=== PATIENT | male | born 1940 | race Caucasian/White ===

== ENCOUNTER → 2017-07-04 | Outpatient (CLI) | payer OTHER ==
[~2017-07-04] MED LIST: AMLO-114 PO; ASPI325T39 PO; ATOR-24 PO; CHOL100027 PO; GLC500 PO; INSUINJ12 SC; METO50TA17 PO; MULTTAB58 PO; NVLGI/PEN SC; OMEG12006 PO
[2017-07-04 11:04] LABS: BASO % 0.4 %; BASO ABS # 0.04 K/uL (0-0.2); COMPLETE YES; EOS % 1.8 %; HEMATOCRIT 42.6 % (42-52); IG% 0.3 %; LYMPH % 16.1 %; LYMPH ABS # 1.52 K/uL (1.2-3.4); MEAN CELL VOLUME 99.3 fL (80-100); MEAN CORPUSCULAR HEMOGLOBIN 33.6 pg (25-34); MEAN CORPUSCULAR HGB CONC 33.8 g/dl (32-36); MEAN PLATELET VOLUME 12.3 fL (7.4-10.4); MONO % 11.2 %; NEUT % 70.2 %; PLATELET COUNT 220 K/uL (130-400); RED BLOOD COUNT 4.29 M/uL (4.7-6.1); WHITE BLOOD COUNT 9.45 K/uL (4.8-10.8)
[2017-07-04 11:27] LABS: ALT/SGPT 28 U/L (12-78); BLOOD UREA NITROGEN 22 mg/dl (7-18); BUN/CREATININE RATIO 15.8 (10-20); CALCIUM 9.4 mg/dl (8.5-10.1); CARBON DIOXIDE 29 mmol/L (21-32); CHLORIDE 108 mmol/L (98-107); GLUCOSE 75 mg/dl (70-99); POTASSIUM 4.4 mmol/L (3.5-5.1); SODIUM 142 mmol/L (136-145)
[2017-07-04 11:37] LABS: ESTIMATED AVERAGE GLUCOSE 134 mg/dl; HA1C FLAG Normal (Normal)
[2017-07-04 11:38] LABS: ALB/GLOB RATIO 1.1 (0.9-2); ALKALINE PHOSPHATASE 77 U/L (45-117); AST/SGOT 15 U/L (15-37)
[2017-07-04 13:59] LABS: LYME DISEASE AB IGM NEG (NEG)
[2017-07-04 14:00] LABS: LYME DISEASE AB IGG NEG (NEG)
--- NOTE | 2017-07-12 07:07 | CODING QUERY MEDICAL NECESSITY ---
SUPPORTING DIAGNOSIS NEEDED Dr. Hunter, A supporting diagnosis is required for the test/procedure performed on this patient in order for us to be reimbursed by the patient's insurance. Please provide a supporting diagnosis for the following test/procedure listed below next to the test name along with your signature. *If there is no additional diagnosis for this patient that would support the following test/procedure please document that below next to the test/procedure. Test(s)/Procedure(s) that require a supporting diagnosis: * ([id number]) B12 VITAMIN LEVEL DIAGNOSIS: * [id number] GLYCATED HEMOGLOBIN DIAGNOSIS: DATE OF SERVICE: 07/04/17 Provider Signature: Date: Thank you Felix Mccoy Health Information Management Once completed, please kindly fax back to [phone] For questions please call [phone]
== END | disposition home or self-care (01) ==
LOC: C.LABBC 09:03
PROVIDERS: ATTEND Internal Medicine Geriatric Medicine
DX: F09 Unspecified mental disorder due to known physiological condition (principal)

== ENCOUNTER → 2017-07-06 | Outpatient (CLI) | payer OTHER ==
--- NOTE | 2017-07-06 14:10 | DIAGNOSTIC IMAGING REPORT ---
BRAIN WITHOUT CONTRAST CLINICAL HISTORY: 77 years-old Male presenting with COGNITIVE DISORDER. TECHNIQUE: Multisequence, multiplanar MR imaging of the brain was performed without the use of intravenous contrast. IV contrast: None. COMPARISON: None. FINDINGS: Proportional ventricular and sulcal prominence, likely age-related parenchymal volume loss. Periventricular and subcortical white matter T2/FLAIR hyperintensity, nonspecific but likely indicative of chronic small vessel ischemic change. Old lacunar infarct noted in the left basal ganglia. 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 No mass effect or midline shift. No restricted diffusion to suggest acute ischemia. No hemorrhage. No extra-axial fluid collection. T2 skull base flow voids preserved. Bone marrow signal intensity within the calvarium within normal limits. IMPRESSION: 1. No acute intracranial abnormality. 2. Old lacunar infarct in the left basal ganglia and chronic infarct in the left cerebellar hemisphere. 3. Chronic small vessel ischemic change. Electronically signed by: Emil Hsu M.D. 07/06/2017 2:09 PM Dictated Date/Time: 07/06/2017 2:05 PM
== END | disposition home or self-care (01) ==
LOC: C.MRIBC 12:26
PROVIDERS: ATTEND Internal Medicine Geriatric Medicine
DX: F09 Unspecified mental disorder due to known physiological condition (principal)

== ENCOUNTER → 2017-09-20 | Outpatient (CLI) | payer OTHER ==
[2017-09-20 15:33] LABS: HEMATOCRIT 39.7 % (42-52); MEAN CELL VOLUME 99.3 fL (80-100); MEAN CORPUSCULAR HEMOGLOBIN 34.3 pg (25-34); MEAN CORPUSCULAR HGB CONC 34.5 g/dl (32-36); MEAN PLATELET VOLUME 12.7 fL (7.4-10.4); PLATELET COUNT 236 K/uL (130-400); WHITE BLOOD COUNT 9.68 K/uL (4.8-10.8)
[2017-09-20 15:56] LABS: BLOOD UREA NITROGEN 25 mg/dl (7-18); BUN/CREATININE RATIO 17.2 (10-20); CALCIUM 8.3 mg/dl (8.5-10.1); CARBON DIOXIDE 29 mmol/L (21-32); CHLORIDE 105 mmol/L (98-107); CREATININE 1.47 mg/dl (0.60-1.40); GLUCOSE 73 mg/dl (70-99); POTASSIUM 4.3 mmol/L (3.5-5.1); SODIUM 139 mmol/L (136-145)
[2017-09-20 16:39] LABS: URINE APPEARANCE CLEAR (CLEAR); URINE BILIRUBIN NEG (NEG); URINE COLOR YELLOW; URINE NITRITE NEG (NEG); URINE SPECIFIC GRAVITY 1.015 (1.000-1.030); UROBILINOGEN NEG (NEG)
[2017-09-20 16:45] LABS: MANUAL MICROSCOPIC REQUIRED? NO; REVIEW REQ? NO
[2017-09-20 17:02] LABS: CREATININE, URINE 71.4 mg/dl; URINE PROTIEN/CREAT RATIO 0.5 (0-0.2); URINE TOTAL PROTEIN 36.9 mg/dl (0-11.9)
[2017-09-21 07:27] LABS: ESTIMATED AVERAGE GLUCOSE 128 mg/dl; HA1C FLAG Normal (Normal)
== END | disposition home or self-care (01) ==
LOC: C.LAB1850 14:04
PROVIDERS: ATTEND Internal Medicine Nephrology
DX: I12.9 Hypertensive chronic kidney disease with stage 1 through stage 4 chronic kidney disease, or unspecified chronic kidney disease (principal); R80.9 Proteinuria, unspecified; N18.3 Chronic kidney disease, stage 3 (moderate); D64.9 Anemia, unspecified; E11.9 Type 2 diabetes mellitus without complications; E55.9 Vitamin D deficiency, unspecified

== ENCOUNTER 2017-11-12 09:25 | Inpatient (IN) | payer OTHER ==
[~2017-11-12] VITALS: Ht 170.2 cm; Wt 84.6 kg
--- NOTE | 2017-11-12 09:45 | EMERGENCY ROOM VISIT NOTE ---
History Report prepared by Kevin: Silvano Soriano Under the Supervision of: Dr. Agapito Quick M.D. First contact with patient: 09:33 Chief Complaint: CARDIAC ASSESSMENT Stated Complaint: REFERRED BY History of Present Illness The patient is a 77 year old male who presents to the Emergency Room with complaints of intermittent, moderate, chest pain beginning two weeks ago. The patient states his pain began in his chest and radiated to his left shoulder. He reports he is not currently experiencing pain. The patient notes he has felt better over the past few days. He states he called his PCP, and he has an appointment on . The patient reports he is in the ED today because his thought it would be good to come. He notes since his pain, he is now short of breath on exertion, but he did not have shortness of breath when his pain was present. The patient states nothing helped alleviate his symptoms. 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 The patient notes he has not had trouble with his heart since. He states he takes a full aspirin every day, and he took it this morning. The patient reports a history of DM and his blood sugars have been stable. He notes he also has a history of hypertension. The patient denies current chest pain, sweating, lightheadedness, dizziness, palpitations, pain radiating to arm, pain radiated to neck, having a recent stress test, leg swelling, fevers, chills, other flu-like symptoms, black stools, and abdominal pain. Source of History: patient Onset: two weeks ago Position: chest Symptom Intensity: moderate Timing: intermittent Associated Symptoms: + SOB (worsening with exertion), No fevers, No chills, No chest pain (currently), No abdominal pain Note: Associated symptoms: radiates to left shoulder Denies: sweating, lightheadedness, dizziness, palpitations, pain radiating to arm, pain radiating to neck, leg swelling, black stool Review of Systems As above. All other systems reviewed were negative unless otherwise stated in history. At least 10 were reviewed Past Medical & Surgical Medical Problems: (1) Acute coronary syndrome (2) Chronic Kidney Disease, Stage I (3) Diab Martina Wo Compl, Type Ii Or Unspec Type, Not Uncntrld (4) Diabetes (5) Diverticulosis Colon (W/O Ment Of Hemorrhage) (6) Hypertension Nos (7) Myocardial infarction Surgical Problems: (1) S/P CABG x 4 Old medical records were reviewed. Nurse's notes were reviewed and I agree with. Family History FH: heart disease FHx: cancer Social History Smoking Status: Former Smoker Marital Status: Housing Status: lives with significant other Occupation Status: retired Current/Historical Medications Scheduled Amlodipine (Norvasc), 10 MG PO DAILY Aspirin (Aspirin Ec), 81 MG PO DAILY Atorvastatin (Lipitor), 40 MG PO DAILY Hydrochlorothiazide (Hydrochlorothiazide), 12.5 MG PO DAILY Insulin Detemir (Levemir Flextouch), 15 UNITS SC QAM Insulin Detemir (Levemir Flextouch), 18 UNITS SC QPM Lutein (Hm Lutein), 20 MG PO DAILY Memantine (Namenda), 10 MG PO BID Metformin HCl (Metformin HCl), 1,000 MG PO BID Metoprolol Succ (Toprol Xl) (Toprol-Xl), 25 MG PO DAILY Scheduled PRN Insulin Aspart (Novolog Flexpen), 45 UNITS SC ACHS PRN for SLIDING SCALE Allergies Coded Allergies: TY Inhibitors (Unverified Allergy, Unknown, , 11/12/17) Donepezil (Unverified Allergy, Unknown, , 11/12/17) Physical Exam Vital Signs Date Time Temp Pulse Resp B/P (MAP) Pulse Ox O2 Delivery O2 Flow Rate FiO2 11/12/17 10:26 59 16 141/73 11/12/17 09:47 69 11/12/17 09:26 36.3 68 17 157/66 99 Room Air Physical Exam General: Non-ill appearing older male in no acute distress. HEENT: Normal cephalic atraumatic. Pupils are equal round and reactive to light. Extraocular movements are intact. Oropharynx is pink with moist mucous membranes. No swelling of the mouth lips or tongue. Neck: Supple with a midline trachea. No meningeal signs or stiffness, no JVD or bruits. No Stridor. Chest: Clear to auscultation bilaterally. No wheezes or rhonchi. No increased work of breathing. Scar from previous CABG. Heart: regular rate and rhythm. Abdomen: Soft nontender, nondistended without rebound guarding or rigidity. Extremities: No cyanosis clubbing or edema. No calf tenderness or assymetry Spine/Back. Non tender to palpation. No CVA tenderness Skin: Good turgor without rashes. Neurologic exam: Cranial nerves two through 12 are intact. Motor and sensation are intact and symmetrical throughout. Medical Decision & Procedures ER Provider Diagnostic Interpretation: X-ray results as stated below per interpretation by me and the radiologist: CHEST ONE VIEW PORTABLE CLINICAL HISTORY: CHEST PAIN COMPARISON STUDY: Chest radiograph May 07, 2015. FINDINGS: There are median sternotomy wires and mediastinal surgical clips. No pneumothorax or pleural effusion is noted. Moderate cardiomegaly is noted without evidence for pulmonary edema. There is no consolidation to suggest pneumonia. The appearance of the chest is unchanged. IMPRESSION: No acute cardiopulmonary findings. Electronically signed by: Samuel Kovacs M.D. 11/12/2017 10:25 AM Dictated Date/Time: 11/12/2017 10:25 AM Laboratory Results 11/12/17 09:39 Red Blood Count 4.33, Mean Corpuscular Volume 96.5, Mean Corpuscular Hemoglobin 34.2, Mean Corpuscular Hemoglobin Concent 35.4, Mean Platelet Volume 12.0, Neutrophils (%) (Auto) 75.9, Lymphocytes (%) (Auto) 12.5, Monocytes (%) (Auto) 9.7, Eosinophils (%) (Auto) 1.2, Basophils (%) (Auto) 0.4, Neutrophils # (Auto) 9.12, Lymphocytes # (Auto) 1.50, Monocytes # (Auto) 1.17, Eosinophils # (Auto) 0.15, Basophils # (Auto) 0.05 11/12/17 09:39 Test 11/12/17 09:39 11/12/17 09:51 White Blood Count 12.03 K/uL (4.8-10.8) Red Blood Count 4.33 M/uL (4.7-6.1) Hemoglobin 14.8 g/dL (14.0-18.0) Hematocrit 41.8 % (42-52) Mean Corpuscular Volume 96.5 fL (80-100) Mean Corpuscular Hemoglobin 34.2 pg (25-34) Mean Corpuscular Hemoglobin Concent 35.4 g/dl (32-36) Platelet Count 263 K/uL (130-400) Mean Platelet Volume 12.0 fL (7.4-10.4) Neutrophils (%) (Auto) 75.9 % Lymphocytes (%) (Auto) 12.5 % Monocytes (%) (Auto) 9.7 % Eosinophils (%) (Auto) 1.2 % Basophils (%) (Auto) 0.4 % Neutrophils # (Auto) 9.12 K/uL (1.4-6.5) Lymphocytes # (Auto) 1.50 K/uL (1.2-3.4) Monocytes # (Auto) 1.17 K/uL (0.11-0.59) Eosinophils # (Auto) 0.15 K/uL (0-0.5) Basophils # (Auto) 0.05 K/uL (0-0.2) RDW Standard Deviation 43.2 fL (36.4-46.3) RDW Coefficient of Variation 12.2 % (11.5-14.5) Immature Granulocyte % (Auto) 0.3 % Immature Granulocyte # (Auto) 0.04 K/uL (0.00-0.02) Prothrombin Time 10.6 SECONDS (9.0-12.0) Prothromb Time International Ratio 1.0 (0.9-1.1) Activated Partial Thromboplast Time 26.4 SECONDS (21.0-31.0) Partial Thromboplastin Ratio 1.0 Anion Gap 8.0 mmol/L (3-11) Est Creatinine Clear Calc Drug Dose 44.9 ml/min Estimated GFR () 53.5 Estimated GFR (Non- 46.1 BUN/Creatinine Ratio 16.6 (10-20) Calcium Level 9.2 mg/dl (8.5-10.1) Total Bilirubin 0.6 mg/dl (0.2-1) Direct Bilirubin 0.1 mg/dl (0-0.2) Aspartate Amino Transf (AST/SGOT) 14 U/L (15-37) Alanine Aminotransferase (ALT/SGPT) 24 U/L (12-78) Alkaline Phosphatase 101 U/L (45-117) Total Creatine Kinase 137 U/L (39-308) Creatine Kinase MB 3.3 ng/ml (0.5-3.6) Creatine Kinase MB Ratio (0-3.0) Troponin I 1.390 ng/ml (0-0.045) Pro-B-Type Natriuretic Peptide 2900 pg/ml (0-1800) Total Protein 8.2 gm/dl (6.4-8.2) Albumin 3.7 gm/dl (3.4-5.0) Lipase 234 U/L (73-393) Thyroid Stimulating Hormone (TSH) 3.170 uIu/ml (0.300-4.500) Bedside Troponin I 1.840 ng/ml (0-0.045) Laboratory studies as stated above per my review. ECG Indication: chest pain Rate (beats per minute): 68 Rhythm: normal sinus Findings: nonspecific-ST abn, Q waves (in lead V6), other (Non-specific T-wave abnormality, no ST elevation, Poor baseline for interpretation) Comparison ECG Date: 05/07/15 Change: Non-specific ST and T-wave abnormalities and Q waves in lead V6 are new. Patient's electrocardiogram was interpreted by me. ED Course 0934: Past medical records reviewed. The patient was evaluated in room A10, and a complete history and physical examination were performed. 1014: Upon reevaluation, the patient is resting comfortably. I discussed the results and treatment plan with the patient. He verbalized agreement of the treatment plan. The patient will be evaluated for further management. 1017: I discussed the patient case with Dr. Brooks, [facility] Hospitalist. The patient will be evaluated for further management and care. Medical Decision Differentials include, but are not limited to; ACS, MT, GERD, arrhythmia, infection, CHF, electrolyte or metabolic abnormality. This patient comes in as described above. He does have a cardiac history with a quadruple bypass 14 years ago he had chest pain about 2 weeks ago. He is asymptomatic at present. He did take a full strength aspirin today. IV access established extensive workup was obtained including EKG, chest x-ray, multiple blood testing including cardiac biomarkers. He was reassessed frequently. He is asymptomatic at present. He is a somewhat poor historian about the timing of the chest pain. I'm concerned that he does have EKG changes with T-wave inversions but nothing to suggest an acute STEMI. His troponin is significantly elevated and I suspect he had a MT within the last week or so. He still does have some symptoms with feeling tired with exertion only. He does have some mild renal insufficiency. He does not appear to be in significant congestive heart failure. I do think he needs to be admitted for further cardiac treatment and evaluation. I did consult Dr. Brooks to see him in the emergency department. Medication Reconcilliation Current Medication List: was personally reviewed by me Blood Pressure Screening Patient's blood pressure: Elevated blood pressure Monitored by hospitalist. Consults Time Called: 1011 Consulting Physician: Dr. Brooks, [facility] Hospitalist Returned Call: [phone] I discussed the patient case with Dr. Brooks, [facility] Hospitalist. The patient will be evaluated for further management and care. Impression Primary Impression: Acute coronary syndrome Additional Impression: Elevated troponin I level Scribe Attestation The scribe's documentation has been prepared under my direction and personally reviewed by me in its entirety. I confirm that the note above accurately reflects all work, treatment, procedures, and medical decision making performed by me. Departure Information Dispostion Being Evaluated By Hospitalist Referrals Rambo Hunter M.D. (PCP) Patient Instructions My [facility] Problem Qualifiers
[2017-11-12 09:53] LABS: BASO % 0.4 %; BASO ABS # 0.05 K/uL (0-0.2); EOS % 1.2 %; EOS ABS # 0.15 K/uL (0-0.5); HEMATOCRIT 41.8 % (42-52); HEMOGLOBIN 14.8 g/dL (14.0-18.0); IG# 0.04 K/uL (0.00-0.02); LYMPH % 12.5 %; MEAN CELL VOLUME 96.5 fL (80-100); MEAN CORPUSCULAR HEMOGLOBIN 34.2 pg (25-34); MEAN CORPUSCULAR HGB CONC 35.4 g/dl (32-36); MONO % 9.7 %; MONO ABS # 1.17 K/uL (0.11-0.59); NEUT % 75.9 %; NEUT ABS # 9.12 K/uL (1.4-6.5); PLATELET COUNT 263 K/uL (130-400); RED CELL DISTRIBUTION WIDTH CV 12.2 % (11.5-14.5); RED CELL DISTRIBUTION WIDTH SD 43.2 fL (36.4-46.3); WHITE BLOOD COUNT 12.03 K/uL (4.8-10.8)
[2017-11-12] MEDS ORDERED: NMN10 PO (09:58)
[2017-11-12] MEDS ORDERED: ASPI81TA28 PO (09:58)
[2017-11-12] MEDS ORDERED: INSU3INJ3 SC (09:58)
[2017-11-12] MEDS ORDERED: LUTE1CAP4 PO (09:58)
[2017-11-12] MEDS ORDERED: LVMIPEN SC (09:58)
[2017-11-12] MEDS ORDERED: HYDR12.55 PO (09:58)
[2017-11-12] MEDS ORDERED: METO25TA3 PO (09:58)
[2017-11-12 10:08] LABS: ALBUMIN 3.7 gm/dl (3.4-5.0); CALCIUM 9.2 mg/dl (8.5-10.1); CREATININE 1.45 mg/dl (0.60-1.40); POTASSIUM 3.8 mmol/L (3.5-5.1)
[2017-11-12 10:11] LABS: PTT PATIENT 26.4 SECONDS (21.0-31.0)
[2017-11-12 10:19] LABS: CKMB 3.3 ng/ml (0.5-3.6); TOTAL PROTEIN 8.2 gm/dl (6.4-8.2)
--- NOTE | 2017-11-12 10:26 | DIAGNOSTIC IMAGING REPORT ---
CHEST ONE VIEW PORTABLE CLINICAL HISTORY: CHEST PAIN COMPARISON STUDY: Chest radiograph May 07, 2015. FINDINGS: There are median sternotomy wires and mediastinal surgical clips. No pneumothorax or pleural effusion is noted. Moderate cardiomegaly is noted without evidence for pulmonary edema. There is no consolidation to suggest pneumonia. The appearance of the chest is unchanged. IMPRESSION: No acute cardiopulmonary findings. Electronically signed by: Samuel Kovacs M.D. 11/12/2017 10:25 AM Dictated Date/Time: 11/12/2017 10:25 AM
[2017-11-12] MEDS ORDERED: MoRPHine SULFATE 4 MG/ML 1 ML CARP\\VIAL IV PRN (10:30)
[2017-11-12] MEDS ORDERED: NITROGLYCERIN 0.4 MG SL PER TAB CHARGE SL PRN (10:30)
[2017-11-12] MEDS ORDERED: MoRPHine SULFATE 2 MG/ML CARP IV PRN (10:30)
[2017-11-12] MEDS ORDERED: ACETAMINOPHEN 325 MG TAB PO PRN (10:30)
[2017-11-12] MEDS ORDERED: ONDANSETRON INJ 2 MG/ML 2 ML VIAL IV PRN (10:30)
[2017-11-12] MEDS ORDERED: MAGNESIUM HYDROXIDE SUSP 30 ML UDC PO PRN (10:30)
[2017-11-12] MEDS ORDERED: ALUMINUM/MAGNESIUM/SIMETH (MAALOX MAX) 30 ML UDC PO PRN (10:30)
--- NOTE | 2017-11-12 10:59 | History and Physical ---
History & Physical Date & Time of Service: Nov 12, 2017 at 10:49 Chief Complaint: Referred By Primary Care Physician: Rambo Hunter M.D. History of Present Illness Source: patient, family, clinic records This patient presents as a referral from clinic with a history of some chest discomfort and exertional dyspnea and fatigue with an abnormal EKG. Patient has a history of dementia in his chart and his story varies from clinic to the ER records regarding the exact timeframe of the symptoms likely over the last 2 weeks she's been having some chest discomfort it can be both at rest and with exertion. He notices that after he is done walking his dog, which she does every day, but he feels more tired and fatigued than usual. She does have a significant past history of a CABG and also is an insulin requiring diabetic. 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 (3) Diverticulosis Colon (W/O Ment Of Hemorrhage) Status: Chronic (4) Hypertension Nos Status: Chronic CAbg 2003 dyslipidemia dementia h/o cholecystectomy cerebrovascular disease SCCA of skin Family History Patient is a family history of both coronary disease and diabetes Social History Smoking Status: Former Smoker Smokeless Tobacco Use: No Alcohol Use: socially Drug Use: none Marital Status: Housing status: lives with family Occupational Status: retired Multi-Drug Resistant Organisms History of MDRO: No Allergies Coded Allergies: TY Inhibitors (Unverified Allergy, Unknown, , 11/12/17) Donepezil (Unverified Allergy, Unknown, , 11/12/17) Home Medications Scheduled Amlodipine (Norvasc), 10 MG PO DAILY Aspirin (Aspirin Ec), 81 MG PO DAILY Atorvastatin (Lipitor), 40 MG PO DAILY Hydrochlorothiazide (Hydrochlorothiazide), 12.5 MG PO DAILY Insulin Detemir (Levemir Flextouch), 15 UNITS SC QAM Insulin Detemir (Levemir Flextouch), 18 UNITS SC QPM Lutein (Hm Lutein), 20 MG PO DAILY Memantine (Namenda), 10 MG PO BID Metformin HCl (Metformin HCl), 1,000 MG PO BID Metoprolol Succ (Toprol Xl) (Toprol-Xl), 25 MG PO DAILY Scheduled PRN Insulin Aspart (Novolog Flexpen), 45 UNITS SC ACHS PRN for SLIDING SCALE Review of Systems ROS: well nourished well developed No double vision blurry vision No problems with speech or swallowing No palpitations, he feels some chest discomfort both at rest and with exertion is difficult to tell long it lasts No Wheezing or breathing issues, but he says he feels more tired after walking No abdominal pain nausea vomiting diarrhea changes in appetite or weight No burning urine urine frequency or changes in color No focal joint pain or muscle pain No skin rashes or oral lesions he does have evidence of sun damage No unusual bruising or bleeding No focused back pain or numbness or loss of strength He has baseline changes in memory but does not seem to have confusion in conversational questioning Physical Exam Vital Signs Date Time Temp Pulse Resp B/P (MAP) Pulse Ox O2 Delivery O2 Flow Rate FiO2 11/12/17 10:26 59 16 141/73 11/12/17 09:47 69 11/12/17 09:26 36.3 68 17 157/66 99 Room Air General Appearance: WD/WN, no apparent distress Head: normocephalic, atraumatic Eyes: normal inspection, PERRL, EOMI, sclerae normal ENT: hearing grossly normal, pharynx normal Neck: supple, no JVD, no carotid bruits Respiratory/Chest: chest non-tender, lungs clear, normal breath sounds Cardiovascular: regular rate, rhythm, no edema Abdomen/GI: normal bowel sounds, non tender, soft Back: no CVA tenderness, no muscle spasm Extremities/Musculoskelatal: no pedal edema, normal range of motion Neurologic/Psych: alert, normal reflexes Skin: normal color, + pertinent finding Diagnostics Laboratory Results Results Past 24 Hours Test 11/12/17 09:39 11/12/17 09:51 11/12/17 10:23 Range/Units White Blood Count 12.03 4.8-10.8 K/uL Red Blood Count 4.33 4.7-6.1 M/uL Hemoglobin 14.8 14.0-18.0 g/dL Hematocrit 41.8 42-52 % Mean Corpuscular Volume 96.5 80-100 fL Mean Corpuscular Hemoglobin 34.2 25-34 pg Mean Corpuscular Hemoglobin Concent 35.4 32-36 g/dl Platelet Count 263 130-400 K/uL Mean Platelet Volume 12.0 7.4-10.4 fL Neutrophils (%) (Auto) 75.9 % Lymphocytes (%) (Auto) 12.5 % Monocytes (%) (Auto) 9.7 % Eosinophils (%) (Auto) 1.2 % Basophils (%) (Auto) 0.4 % Neutrophils # (Auto) 9.12 1.4-6.5 K/uL Lymphocytes # (Auto) 1.50 1.2-3.4 K/uL Monocytes # (Auto) 1.17 0.11-0.59 K/uL Eosinophils # (Auto) 0.15 0-0.5 K/uL Basophils # (Auto) 0.05 0-0.2 K/uL RDW Standard Deviation 43.2 36.4-46.3 fL RDW Coefficient of Variation 12.2 11.5-14.5 % Immature Granulocyte % (Auto) 0.3 % Immature Granulocyte # (Auto) 0.04 0.00-0.02 K/uL Prothrombin Time 10.6 9.0-12.0 SECONDS Prothromb Time International Ratio 1.0 0.9-1.1 Activated Partial Thromboplast Time 26.4 21.0-31.0 SECONDS Partial Thromboplastin Ratio 1.0 Sodium Level 139 136-145 mmol/L Potassium Level 3.8 3.5-5.1 mmol/L Chloride Level 104 98-107 mmol/L Carbon Dioxide Level 27 21-32 mmol/L Anion Gap 8.0 3-11 mmol/L Blood Urea Nitrogen 24 7-18 mg/dl Creatinine 1.45 0.60-1.40 mg/dl Est Creatinine Clear Calc Drug Dose 44.9 ml/min Estimated GFR () 53.5 Estimated GFR (Non- 46.1 BUN/Creatinine Ratio 16.6 10-20 Random Glucose 116 70-99 mg/dl Calcium Level 9.2 8.5-10.1 mg/dl Total Bilirubin 0.6 0.2-1 mg/dl Direct Bilirubin 0.1 0-0.2 mg/dl Aspartate Amino Transf (AST/SGOT) 14 15-37 U/L Alanine Aminotransferase (ALT/SGPT) 24 12-78 U/L Alkaline Phosphatase 101 45-117 U/L Total Creatine Kinase 137 39-308 U/L Creatine Kinase MB 3.3 0.5-3.6 ng/ml Creatine Kinase MB Ratio 0-3.0 Pro-B-Type Natriuretic Peptide 2900 0-1800 pg/ml Total Protein 8.2 6.4-8.2 gm/dl Albumin 3.7 3.4-5.0 gm/dl Lipase 234 73-393 U/L Thyroid Stimulating Hormone (TSH) 3.170 0.300-4.500 uIu/ml Bedside Troponin I 1.840 0-0.045 ng/ml Diagnostic Radiology poc troponin is 1.8 serum level is pending CXR normal other (ecg xshows lateral changes) Impression Assessment and Plan 77 M with history of CABG presents with new onset chest pain over last few weeks , abnormal ECG and elevated troponin, has history of DM Acute coronary syndrome, trend enzymes, increase asprin and lipitor, stop norvasc and increase metoprolol watching for toxic effects of worsening bradycardia, pending echo and cardiology evaluation Diabetes, will continue levimir, and sliding scale(usually takes, 05/16/11 units with meals plus scale at home) with diabetic diet, holding metformin CKD 3 renal dose adjustments to heparin and follow dementia, seems to be mild, cannot firmly recall events of symptoms, no meds at this time but may discuss with DR Hunter in the future DVT prevention is Heparin VTE Prophylaxis VTE Risk Assessment Done? Y/N: Yes Risk Level: Moderate
[2017-11-12 11:01] VITALS: O2SAT 97
[2017-11-12 11:20] VITALS: BP 157/68; PULSE 62; TEMP 36.8; Ht 170.2 cm; Wt 84.6 kg
[2017-11-12] MEDS: INSULIN ASPART 100 UNITS/ML 3 ML PEN SC SCH ×3 (12:20→21:00)
[2017-11-12] MEDS ORDERED: PERFLUTREN LIPID MICROSPHERE (DEFINITY) IV ONE (13:51)
[2017-11-12] MEDS ORDERED: IV FLUIDS COMPLETED PRN (15:00)
--- NOTE | 2017-11-12 15:36 | ECHOCARDIOGRAM REPORT ---
*NOTICE TO RECEIVING DEMOCRAT AGENCY This information is strictly Confidential and protected under [place] law. [place] law prohibits you from making any further disclosure of this information unless further disclosure is expressly permitted by the written consent of the person to whom it pertains or is authorized by law. A general authorization for the release of medical or other information is not sufficient for this purpose. Hospital accepts no responsibility if the information is made available to any other person, INCLUDING THE PATIENT. Interpretation Summary * Name: SULEIMAN RUST Study Date: 11/12/2017 01:23 PM BP: 148/65 mmHg * Patient Location: [facility] HR: 60 * : 1940 (M/d/yyyy) Gender: Male Height: 67 in * Age: 77 yrs Ethnicity: CA Weight: 191 lb * Ordering Physician: Stefano Brooks * Performed By: Yelena Moreno RDCS * * Reason For Study: Chest pain * BSA: 2.0 m2 * -- Conclusions -- * Left ventricular systolic function is normal. * There is mild mitral regurgitation. * Right ventricular systolic pressure is elevated at 40-50mmHg. Procedure Details * A complete two-dimensional transthoracic echocardiogram was performed (2D, M-mode, Doppler and color flow Doppler). * A contrast injection of Definity was performed to improve assessment of LV function. * Contrast was injected into an intravenous site in the left arm. * One vial of Definity ultrasound contrast was diluted in normal saline to a total volume of 10 ml. A total of '2' ml of solution was administered during imaging. * Lot # [id number] of Definity utilized for procedure. * Expiration date 1 NOV 28. * The attending nurse who injected the contrast agent was Chelsie Shelby RN. Left Ventricle * The left ventricle is normal in size. * There is normal left ventricular wall thickness. * Ejection Fraction = 55-60%. * Left ventricular systolic function is normal. * There are regional wall motion abnormalities as specified. * There is distal anterior hypokinesis Right Ventricle * The right ventricle is normal in size and function. * The right ventricular systolic function is normal as assessed by tricuspid annular plane systolic excursion (TAPSE) (normal >1.5 cm). Atria * The left atrial size is normal. * Right atrial size is normal. Mitral Valve * The mitral valve is grossly normal. * There is mild mitral regurgitation. Tricuspid Valve * The tricuspid valve is not well visualized, but is grossly normal. * There is mild tricuspid regurgitation. * Right ventricular systolic pressure is elevated at 40-50mmHg. Aortic Valve * Aortic valve sclerosis mild, without significant aortic valvular stenosis. * No hemodynamically significant valvular aortic stenosis. * There is no significant aortic regurgitation. Pericardium/Pleural * There is no pericardial effusion. Great Vessels * Normal inferior vena cava diameter and respiratory variation suggests normal central venous pressure. MMode 2D Measurements and Calculations IVSd 1.2 cm LVIDd 5.2 cm LVIDs 3.5 cm LVPWd 1.1 cm IVS/LVPW 1.0 FS 32.4 % EDV(Teich) 129.1 ml ESV(Teich) 51.1 ml EF(Teich) 60.4 % EDV(cubed) 140.0 ml ESV(cubed) 43.2 ml EF(cubed) 69.2 % LV mass(C)d 235.0 grams LV mass(C)dI 118.5 grams/m\S\2 SV(Teich) 77.9 ml SI(Teich) 39.3 ml/m\S\2 SV(cubed) 96.8 ml SI(cubed) 48.8 ml/m\S\2 ACS 1.6 cm asc Aorta Diam 2.4 cm LVOT diam 2.7 cm LVOT area 5.8 cm\S\2 LVAd ap4 37.3 cm\S\2 LVLd ap4 8.4 cm EDV(MOD-sp4) 137.8 ml EDV(sp4-el) 140.1 ml LVAs ap4 19.2 cm\S\2 LVLs ap4 6.3 cm ESV(MOD-sp4) 48.1 ml ESV(sp4-el) 49.5 ml EF(MOD-sp4) 65.1 % EF(sp4-el) 64.7 % LVAd ap2 32.8 cm\S\2 LVLd ap2 7.4 cm EDV(MOD-sp2) 117.7 ml EDV(sp2-el) 123.9 ml LVAs ap2 20.1 cm\S\2 LVLs ap2 6.9 cm ESV(MOD-sp2) 48.1 ml ESV(sp2-el) 50.0 ml EF(MOD-sp2) 59.2 % EF(sp2-el) 59.6 % LVLd %diff -14.83 % EDV(MOD-bp) 130.6 ml LVLs %diff 7.9 % ESV(MOD-bp) 48.2 ml EF(MOD-bp) 63.1 % SV(MOD-sp4) 89.7 ml SI(MOD-sp4) 45.2 ml/m\S\2 SV(MOD-sp2) 69.7 ml SI(MOD-sp2) 35.1 ml/m\S\2 SV(MOD-bp) 82.4 ml SI(MOD-bp) 41.6 ml/m\S\2 SV(sp4-el) 90.6 ml SI(sp4-el) 45.7 ml/m\S\2 SV(sp2-el) 73.9 ml SI(sp2-el) 37.3 ml/m\S\2 Doppler Measurements and Calculations MV E max dariusz 105.0 cm/sec MV A max dariusz 34.8 cm/sec MV E/A 3.0 MV dec time 0.19 sec Ao V2 max 171.8 cm/sec Ao max PG 11.8 mmHg Ao max PG (full) 8.2 mmHg BLAYNE(V,A) 3.2 cm\S\2 BLAYNE(V,D) 3.2 cm\S\2 LV V1 max PG 3.6 mmHg LV V1 max 94.6 cm/sec MR max dariusz 463.8 cm/sec MR max PG 86.1 mmHg MR mean dariusz 371.1 cm/sec MR mean PG 62.9 mmHg MR VTI 168.4 cm PA V2 max 98.4 cm/sec PA max PG 3.9 mmHg PA acc slope 444.3 cm/sec\S\2 PA acc time 0.13 sec PI end-d dariusz 118.8 cm/sec TR max dariusz 329.6 cm/sec PA pr(Accel) 22.8 mmHg
[2017-11-12 16:35] VITALS: BP 151/73; PULSE 54; TEMP 36.6; O2SAT 97
[2017-11-12 19:43] VITALS: BP 157/95; PULSE 54; TEMP 36.9; O2SAT 99
[2017-11-12] MEDS: METOPROLOL SUCC 25MG EXT REL TAB PO SCH (21:44)
[2017-11-12] MEDS: MEMANTINE 10 MG TAB PO SCH (21:45)
[2017-11-12] MEDS: HEPARIN SOD 5000 UNIT/0.5 ML CARP SQ SCH (21:46)
[2017-11-12 23:38] VITALS: BP_SYST 135; BP_SYST 145; BP_DIAS 66; BP_DIAS 72; PULSE 49; PULSE 53; TEMP 36.6; TEMP 36.7; O2SAT 97; O2SAT 98
[2017-11-13 03:30] VITALS: BP 123/70; PULSE 54; TEMP 36.9; O2SAT 98
[2017-11-13 07:54] VITALS: BP 175/84; PULSE 60; TEMP 36.7; O2SAT 94
[2017-11-13] MEDS: METOPROLOL SUCC 25MG EXT REL TAB PO SCH ×2 (08:23→21:15)
[2017-11-13] MEDS: MEMANTINE 10 MG TAB PO SCH ×2 (08:23→21:15)
[2017-11-13] MEDS: INSULIN ASPART 100 UNITS/ML 3 ML PEN SC SCH ×4 (08:25→21:17)
[2017-11-13] MEDS: HEPARIN SOD 5000 UNIT/0.5 ML CARP SQ SCH ×2 (08:25→21:16)
[2017-11-13 08:57] LABS: HEMATOCRIT 40.1 % (42-52); HEMOGLOBIN 14.5 g/dL (14.0-18.0); MEAN CELL VOLUME 95.9 fL (80-100); MEAN CORPUSCULAR HEMOGLOBIN 34.7 pg (25-34); MEAN CORPUSCULAR HGB CONC 36.2 g/dl (32-36); MEAN PLATELET VOLUME 12.1 fL (7.4-10.4); PLATELET COUNT 250 K/uL (130-400); RED CELL DISTRIBUTION WIDTH CV 12.1 % (11.5-14.5); WHITE BLOOD COUNT 7.72 K/uL (4.8-10.8)
[2017-11-13] MEDS ORDERED: ASPIRIN 325 MG ECTAB PO SCH (09:00)
[2017-11-13] MEDS ORDERED: ATORVASTATIN 40 MG TAB PO SCH (09:00)
[2017-11-13 09:30] LABS: CALCIUM 8.8 mg/dl (8.5-10.1); CREATININE 1.57 mg/dl (0.60-1.40); POTASSIUM 4.4 mmol/L (3.5-5.1)
--- NOTE | 2017-11-13 11:42 | Cardiology Consultation ---
Cardiology Consultation Date of Consultation: Nov 13, 2017. Requesting Physician: Dunia Reason for Consultation: Chest pain Pt evaluation today including: conversation w/ patient, physical exam, chart review, lab review, review of studies, review of inpatient medication list, conversation w/ attending History of Present Illness Patient is a 77-year-old gentleman with a history of coronary artery disease having previously undergone 4 vessel coronary bypass in 2003. He reports an episode of chest discomfort that apparently began nearly 2 weeks ago. He described this initially as left shoulder discomfort that eventually generalized to include the precordium. He had symptoms of this nature for 2 days before resolution. The symptoms themselves were described as a mild discomfort that was not overtly pleuritic in nature. He is fairly constant for that period of time. For the past several days the patient has felt well. He does not describe recurrence of the symptoms. He states that since that episode he has noticed some slight worsening in his exercise tolerance manifest primarily by an inability to walk long distances. He is accustomed to walking his dogs on a regular basis and now notes that with a slight hill or extended distance he becomes fatigued. He does not describe exertional chest pain. During no point in the past few weeks as he had significant shortness of breath. He feels that the symptoms did resemble chest pain he had prior to his bypass in 2003, but does have some difficulty remembering that event. He has not describe dizziness or lightheadedness. He has not been aware of any palpitations. He has not had any syncope. He denies any swelling of lower extremities. He claims to sleep well and is not describe orthopnea or paroxysmal nocturnal dyspnea. Past Medical/Surgical History Coronary artery disease status post coronary artery bypass grafting 2003, [facility] [place] Bradycardia Carotid artery disease Dementia Chronic renal insufficiency Diabetes mellitus Hyperlipidemia Hypertension Past surgical history Coronary artery bypass grafting Tonsillectomy Prostate biopsy Carotid endarterectomy Family History FH: heart disease FHx: cancer Noncontributory given his advanced age Social History Smoking Status: Unknown if Ever Smoked History of Alcohol Use: No Retired high school history teacher Review of Systems Per HPI. No recent constitutional symptoms such as fevers or chills. All Other Systems: Reviewed and Negative Allergies Coded Allergies: WESLY Inhibitors (Unverified Allergy, Unknown, , 11/12/17) Donepezil (Unverified Allergy, Unknown, , 11/12/17) Medications Current Inpatient Medications Medications (Trade) Dose Ordered Sig/Elise Route Start Time Stop Time Status Last Admin Dose Admin Heparin Sodium (Porcine) (Heparin Sq 5000 Unit/0.5ml) 5,000 unit Q12 SQ 11/12/17 21:00 12/12/17 20:59 11/13/17 08:25 5,000 UNIT Acetaminophen (Tylenol Tab) 650 mg Q4H PRN PO 11/12/17 10:30 12/12/17 10:29 Al Hydrox/Mg Hydrox/Simethicone (Maalox Max Susp) 15 ml Q4H PRN PO 11/12/17 10:30 12/12/17 10:29 Magnesium Hydroxide (Milk Of Magnesia Susp) 30 ml Q12H PRN PO 11/12/17 10:30 12/12/17 10:29 Ondansetron HCl (Zofran Inj) 4 mg Q6H PRN IV 11/12/17 10:30 12/12/17 10:29 Nitroglycerin (Nitrostat Tab) 0.4 mg UD PRN SL 11/12/17 10:30 12/12/17 10:29 Aspirin (Ecotrin Tab) 325 mg QAM PO 11/13/17 09:00 12/13/17 08:59 11/13/17 08:24 325 MG Atorvastatin Calcium (Lipitor Tab) 80 mg DAILY PO 11/13/17 09:00 12/13/17 08:59 11/13/17 08:23 80 MG Memantine (Namenda Tab) 10 mg BID PO 11/12/17 21:00 12/12/17 20:59 11/13/17 08:23 10 MG Metoprolol Succinate (Toprol Xl Tab) 25 mg BID PO 11/12/17 21:00 12/12/17 20:59 11/13/17 08:23 25 MG Insulin Aspart (novoLOG ASPART) SLIDING SCALE PARAMETER ACHS SC 11/12/17 11:00 12/12/17 10:59 11/13/17 08:25 8 UNITS Morphine Sulfate (MoRPHine SULFATE INJ) 4 mg Q4H PRN IV 11/12/17 10:30 11/26/17 10:29 Morphine Sulfate (MoRPHine SULFATE INJ) 2 mg Q4H PRN IV 11/12/17 10:30 11/26/17 10:29 Miscellaneous (Iv Fluids Completed) 1 ea PRN PRN N/A 11/12/17 15:00 11/12/18 14:59 Physical Exam Vital Signs Past 12 Hours Date Time Temp Pulse Resp B/P (MAP) Pulse Ox O2 Delivery O2 Flow Rate FiO2 11/13/17 08:00 Room Air 11/13/17 07:54 36.7 60 20 175/84 (114) 94 Room Air 11/13/17 04:00 Room Air 11/13/17 03:30 36.9 54 18 123/70 (87) 98 Room Air 11/13/17 00:02 Room Air 11/12/17 23:38 36.7 53 18 135/66 (89) 98 Room Air The patient is alert and oriented. Mood and affect appeared normal. He answered all questions appropriately. His mentation seem to be appropriate HEENT: Pupils are equal and reactive to light and accommodation. Extraocular movements are intact. The sclerae are anicteric. Neuro: Cranial nerves intact Neck: Patient's neck is supple. He has palpable carotid pulses bilaterally without bruits on auscultation. There is no evidence of jugular venous distention. The thyroid is not enlarged. Lungs: Clear to auscultation bilaterally. He has good air movement without use of accessory muscles. No rales wheezes or rhonchi. Cardiac: Heart demonstrates a regular rate and rhythm with occasional ectopy. Normal S1 and S2. No murmurs on examination. Pulses: The patient has palpable radial pulses bilaterally that are equal in intensity Extremities: There was no evidence of hypoperfusion. There is no cyanosis or clubbing. There is no edema. Skin: I did not appreciate any rashes on examination today. Data Laboratory Results: Last 24 Hours Test 11/12/17 16:07 11/12/17 16:16 11/12/17 20:54 11/13/17 00:31 Bedside Glucose 135 mg/dl 132 mg/dl Troponin I 1.150 ng/ml 0.979 ng/ml Test 11/13/17 06:49 11/13/17 08:32 Bedside Glucose 198 mg/dl White Blood Count 7.72 K/uL Red Blood Count 4.18 M/uL Hemoglobin 14.5 g/dL Hematocrit 40.1 % Mean Corpuscular Volume 95.9 fL Mean Corpuscular Hemoglobin 34.7 pg Mean Corpuscular Hemoglobin Concent 36.2 g/dl RDW Standard Deviation 42.0 fL RDW Coefficient of Variation 12.1 % Platelet Count 250 K/uL Mean Platelet Volume 12.1 fL Sodium Level 135 mmol/L Potassium Level 4.4 mmol/L Chloride Level 102 mmol/L Carbon Dioxide Level 25 mmol/L Anion Gap 8.0 mmol/L Blood Urea Nitrogen 25 mg/dl Creatinine 1.57 mg/dl Est Creatinine Clear Calc Drug Dose 41.5 ml/min Estimated GFR () 48.6 Estimated GFR (Non- 41.9 BUN/Creatinine Ratio 15.8 Random Glucose 318 mg/dl Calcium Level 8.8 mg/dl Magnesium Level 1.7 mg/dl Troponin I 0.864 ng/ml Beta-Hydroxybutyric Acid 1.31 mg/dL Imaging: Chest x-ray did not demonstrate any acute abnormality EKG: Sinus bradycardia with possible old posterolateral infarct. Diffuse T- wave inversions and occasional PVCs Telemetry reviewed: Sinus rhythm with PVCs Echocardiogram was obtained on 11/12/2017: This demonstrated overall preserved LV systolic function with evidence of anterior hypokinesis. Assessment & Plan 1. Acute coronary syndrome: Patient has elevated cardiac biomarkers consistent with a recent infarct. The trajectory of the biomarkers is down trending and the overall elevation is quite low. Based on his history this could represent the tail end of an infarcted occurred within the past 2 weeks. By his report this may have occurred approximately 10 days ago. There has been some debate as to the reliability of his history. Asked him on several different occasions what time frame the symptoms occurred any seem to be consistent today. It is very likely that the exertional symptoms he has describe since the event are related to the recent infarct. His overall LV function appears to be preserved on echocardiogram but there does appear to be some hypokinesis in the anterior wall. While my initial enthusiasm centered around coronary angiography, I think the relatively remote nature of this event and the absence of severe symptoms gives us an opportunity to manage this conservatively. I think a perfusion study to exclude large areas of ischemia or at risk myocardium would be reasonable in order to better risk stratify him and determine if coronary angiography would be beneficial. I think he can be maintained on his outpatient dose of beta-isabel, atorvastatin and aspirin. I think adding Plavix to his medical regimen will have some benefit. The patient was debating whether he wanted to stay in the hospital. I recommended staying for a Lexiscan perfusion study tomorrow. 2. Coronary artery disease: Patient has had a quite remote bypass surgery. The exact anatomy is not available but we may be able to obtain this tomorrow from [place]. He has been maintained on aspirin, atorvastatin and beta blockade. 3. Ischemic cardiomyopathy: Patient has had some waxing and waning LV dysfunction over the years. His most recent echocardiogram looks good overall and I would estimate his overall ejection fraction in the low-normal range. He has been maintained on a beta-isabel but no Wesly inhibitor based on his degree of renal dysfunction.
[2017-11-13] MEDS ORDERED: CLOPIDOGREL BISULFATE 300 MG TAB PO STA (12:16)
--- NOTE | 2017-11-13 12:42 | Hospitalist Progress Note ---
Hospitalist Progress Note Date of Service Nov 13, 2017. Subjective Pt evaluation today including: conversation w/ patient, physical exam, chart review, lab review, review of studies, conversation w/ financial planning consultant (spoke with Dr. Dorsey), review of inpatient medication list Pain: None PO Intake: Tolerating PO diet Voiding: no voiding problems Patient reports feeling well. He denies any chest pain or shortness of breath. It is unclear how reliable he is as a historian; per nursing he gets easily confused and does have dementia and Namenda in his chart. He states that he had developed chest pain for about 2 days, but this occurred about 1.5 weeks ago and has not come back since then. After this episode, however, he has noticed becoming more easily fatigued/having less endurance. He states he regularly takes his dog for a mile long walk, and in the last 1.5 weeks, he has been getting more tired towards the end of the walk and having to take it easy. He otherwise denies complaints. The patient denies fevers, chills, sweats, chest pain, palpitations, claudication, cough, wheezing, shortness of breath, nausea, vomiting, abdominal pain, dysuria, hematuria, urinary retention, paralysis, weakness, numbness and tingling. Patient initially did not want to stay another night for nuclear stress test despite my and Dr. Dorsey's recommendation that he stay. Had prolonged discussion both with Dr. Dorsey and separately regarding the potential risks of leaving AMA. The patient then called his and decided to stay. Additional Comments: See HPI for pertinent positives and negatives. All other systems reviewed and negative. Objective Vital Signs Date Time Temp Pulse Resp B/P (MAP) Pulse Ox O2 Delivery O2 Flow Rate FiO2 11/13/17 08:00 Room Air 11/13/17 07:54 36.7 60 20 175/84 (114) 94 Room Air 11/13/17 04:00 Room Air 11/13/17 03:30 36.9 54 18 123/70 (87) 98 Room Air 11/13/17 00:02 Room Air 11/12/17 23:38 36.7 53 18 135/66 (89) 98 Room Air 11/12/17 20:00 Room Air 11/12/17 19:43 36.9 54 20 157/95 (115) 99 Room Air 11/12/17 16:35 36.6 54 18 151/73 (99) 97 Room Air 11/12/17 16:00 Room Air Physical Exam Notes: General appearance: +Obese. Well-developed, well-nourished, no apparent distress Head: Normocephalic, atraumatic Eyes: Normal inspection, PERRL, EOMI ENT: Normal ENT inspection, hearing grossly normal, pharynx normal Neck: Supple, no JVD, trachea midline Respiratory/Chest: Lungs clear to auscultation, normal breath sounds, no respiratory distress Cardiovascular: Regular rate & rhythm, no gallop, no murmur Abdomen/GI: Normal bowel sounds, non-tender, soft Extremities/Musculoskeletal: Normal inspection, no calf tenderness, no pedal edema Neurological/Psych: Alert, normal mood/affect, oriented x 3 Skin: Normal color, warm/dry, no rash Laboratory Results Last 24 Hours Test 11/12/17 16:07 11/12/17 16:16 11/12/17 20:54 11/13/17 00:31 Bedside Glucose 135 mg/dl 132 mg/dl Troponin I 1.150 ng/ml 0.979 ng/ml Test 11/13/17 06:49 11/13/17 08:32 11/13/17 11:29 Bedside Glucose 198 mg/dl 228 mg/dl White Blood Count 7.72 K/uL Red Blood Count 4.18 M/uL Hemoglobin 14.5 g/dL Hematocrit 40.1 % Mean Corpuscular Volume 95.9 fL Mean Corpuscular Hemoglobin 34.7 pg Mean Corpuscular Hemoglobin Concent 36.2 g/dl RDW Standard Deviation 42.0 fL RDW Coefficient of Variation 12.1 % Platelet Count 250 K/uL Mean Platelet Volume 12.1 fL Sodium Level 135 mmol/L Potassium Level 4.4 mmol/L Chloride Level 102 mmol/L Carbon Dioxide Level 25 mmol/L Anion Gap 8.0 mmol/L Blood Urea Nitrogen 25 mg/dl Creatinine 1.57 mg/dl Est Creatinine Clear Calc Drug Dose 41.5 ml/min Estimated GFR () 48.6 Estimated GFR (Non- 41.9 BUN/Creatinine Ratio 15.8 Random Glucose 318 mg/dl Calcium Level 8.8 mg/dl Magnesium Level 1.7 mg/dl Troponin I 0.864 ng/ml Beta-Hydroxybutyric Acid 1.31 mg/dL Assessment and Plan 77 y/o male with a history of CAD, CABG x 4 in 2003, HTN, HLD, DM II, CKD stage III, and dementia who presents to the ED on 11/12 with recent chest pain within last 2 weeks. NSTEMI--it appears this occurred about 10 days ago or so and is resolving -Admit to telemetry, will change to full admit. No acute events overnight, patient in sinus bradycardia/sinus rhythm with HR 50s-60s -Troponin trending down, last troponin 0.864 on 11/13 -EKG shows sinus ho with PVCs, T wave inversions in inferior leads more evident -Cardiology consulted, appreciate recs: Pt seen with Dr. Dorsey. Appears he had an event about 10 days ago. At this time, he would benefit from Plavix. Recommend nuclear perfusion study first rather than going straight to cath. Would keep patient's outpatient doses of aspirin, statin, and beta isabel. -Plavix 300 mg PO x 1 dose now, then 75 mg PO qd -Continue ASA, atorvastatin, metoprolol -NPO after midnight -Lexiscan tomorrow -Lipid profile and A1c pending -Echo shows LVEF of 55-60%. Mild mitral regurgitation. Distal anterior hypokinesis. RV systolic pressure elevated CAD, CABG x 4 in 2003, HTN, HLD--stable -Continue ASA 81 mg PO qd, Lipitor 40 mg PO qd -Norvasc on hold -Hold HCTZ as creatinine is slightly on the rise -Toprol XL increased to 25 mg PO BID on admission. Will continue for now but monitor for severe bradycardia -Plavix as above DM II--HgbA1c 6.1 on 09/20/17 -Hold metformin -Levemir 15 units SC qam and 18 units SC qpm -Insulin sliding scale -Check BSGs q ac and qhs CKD stage III--stable -Creatinine slightly elevated to 1.57 on 10/13, but not far from baseline of 1.4 Dementia -Continue Namenda 10 mg PO BID DVT prophylaxis -Heparin 5000 units SC q12h Code Status -Level I, FULL RESUSCITATION STATUS Had 2 separate discussions with patient regarding staying for more testing vs the risk of leaving AMA. Spoke with cardiology at length as well regarding his risks and prognosis. Total time spent on direct patient care about 75 minutes.
[2017-11-13 12:52] VITALS: BP 168/88; PULSE 55; TEMP 36.4; O2SAT 93
[2017-11-13] MEDS ORDERED: MAGNESIUM SULFATE 1GM / D5W 1 GM in PREMIXED IN D5W 100 ML IV ONE (13:00)
[2017-11-13 15:22] VITALS: BP 158/75; PULSE 60; TEMP 37; O2SAT 94
[2017-11-13 19:32] VITALS: BP 157/76; PULSE 60; TEMP 37.1; O2SAT 96
[2017-11-13] MEDS ORDERED: AMIODARONE IV BOLUS / DRIP IV STA (19:52)
[2017-11-13] MEDS ORDERED: NITROGLYCERIN 0.4 MG SL PER TAB CHARGE SL PRN (20:00)
[2017-11-13] MEDS ORDERED: MoRPHine SULFATE 2 MG/ML CARP IV PRN (20:00)
[2017-11-13] MEDS ORDERED: INSULIN DETEMIR FLEXPEN/FLEX TOUCH 100 UNITS/ML 3ML SC SCH (21:00)
[2017-11-13 23:38] VITALS: BP 145/72; PULSE 49; TEMP 36.6; O2SAT 97
[2017-11-14 03:40] VITALS: BP 136/72; PULSE 53; TEMP 36.8; O2SAT 95
[2017-11-14 06:56] LABS: HEMATOCRIT 39.3 % (42-52); HEMOGLOBIN 14.1 g/dL (14.0-18.0); MEAN CELL VOLUME 95.4 fL (80-100); MEAN CORPUSCULAR HEMOGLOBIN 34.2 pg (25-34); MEAN CORPUSCULAR HGB CONC 35.9 g/dl (32-36); MEAN PLATELET VOLUME 11.8 fL (7.4-10.4); PLATELET COUNT 244 K/uL (130-400); RED CELL DISTRIBUTION WIDTH CV 12.2 % (11.5-14.5); RED CELL DISTRIBUTION WIDTH SD 42.2 fL (36.4-46.3); WHITE BLOOD COUNT 7.06 K/uL (4.8-10.8)
[2017-11-14 07:24] VITALS: BP 146/65; PULSE 53; TEMP 36.7; O2SAT 97
[2017-11-14 07:31] LABS: CALCIUM 8.7 mg/dl (8.5-10.1); CREATININE 1.48 mg/dl (0.60-1.40)
[2017-11-14 07:51] LABS: HEMOGLOBIN A1C 6.5 % (4.5-5.6)
[2017-11-14] MEDS: METOPROLOL SUCC 25MG EXT REL TAB PO SCH (08:02)
[2017-11-14] MEDS: MEMANTINE 10 MG TAB PO SCH (08:03)
[2017-11-14] MEDS: HEPARIN SOD 5000 UNIT/0.5 ML CARP SQ SCH (08:09)
[2017-11-14] MEDS: INSULIN ASPART 100 UNITS/ML 3 ML PEN SC SCH ×3 (08:10→16:15)
[2017-11-14] MEDS ORDERED: ASPIRIN 81 MG ECTAB PO SCH (09:00)
[2017-11-14] MEDS ORDERED: ATORVASTATIN 40 MG TAB PO SCH (09:00)
[2017-11-14] MEDS ORDERED: CLOPIDOGREL BISULFATE 75 MG TAB PO SCH (09:00)
[2017-11-14] MEDS ORDERED: INSULIN DETEMIR FLEXPEN/FLEX TOUCH 100 UNITS/ML 3ML SC SCH (09:00)
--- NOTE | 2017-11-14 09:38 | Cardiology Follow-Up ---
Subjective Date of Service: Nov 14, 2017. Pt evaluation today including: conversation w/ patient, physical exam, chart review, lab review, review of studies, review of inpatient medication list History of Present Illness This morning the patient claims to be feeling well. He has not had a recurrence of his chest pain experience several days ago. He denies any breathing difficulty currently. He has been ambulatory around the [place]. Social History Smoking Status: Unknown if Ever Smoked History of Alcohol Use: No Review of Systems Per HPI. No recent constitutional symptoms such as fevers or chills. Objective Vital Signs Past 12 Hours Date Time Temp Pulse Resp B/P (MAP) Pulse Ox O2 Delivery O2 Flow Rate FiO2 11/14/17 07:24 36.7 53 18 146/65 (92) 97 Room Air 11/14/17 04:00 Room Air 11/14/17 03:40 36.8 53 18 136/72 (93) 95 Room Air 11/14/17 00:02 Room Air 11/13/17 23:38 36.6 49 17 145/72 (96) 97 Room Air Last Recorded Weight-Kilograms: 84.600 Physical Exam The patient is alert and oriented. Mood and affect appeared normal. He answered all questions appropriately. His mentation seem to be appropriate HEENT: Pupils are equal and reactive to light and accommodation. Extraocular movements are intact. The sclerae are anicteric. Neuro: Cranial nerves intact Neck: Patient's neck is supple. He has palpable carotid pulses bilaterally without bruits on auscultation. There is no evidence of jugular venous distention. The thyroid is not enlarged. Lungs: Clear to auscultation bilaterally. He has good air movement without use of accessory muscles. No rales wheezes or rhonchi. Cardiac: Heart demonstrates a regular rate and rhythm with occasional ectopy. Normal S1 and S2. No murmurs on examination. Pulses: The patient has palpable radial pulses bilaterally that are equal in intensity Extremities: There was no evidence of hypoperfusion. There is no cyanosis or clubbing. There is no edema. Skin: I did not appreciate any rashes on examination today. Data Laboratory Results: Last 24 Hours Test 11/13/17 11:29 11/13/17 16:26 11/13/17 20:35 11/14/17 06:42 Bedside Glucose 228 mg/dl 177 mg/dl 238 mg/dl White Blood Count 7.06 K/uL Red Blood Count 4.12 M/uL Hemoglobin 14.1 g/dL Hematocrit 39.3 % Mean Corpuscular Volume 95.4 fL Mean Corpuscular Hemoglobin 34.2 pg Mean Corpuscular Hemoglobin Concent 35.9 g/dl RDW Standard Deviation 42.2 fL RDW Coefficient of Variation 12.2 % Platelet Count 244 K/uL Mean Platelet Volume 11.8 fL Sodium Level 139 mmol/L Potassium Level 4.0 mmol/L Chloride Level 106 mmol/L Carbon Dioxide Level 26 mmol/L Anion Gap 7.0 mmol/L Blood Urea Nitrogen 28 mg/dl Creatinine 1.48 mg/dl Est Creatinine Clear Calc Drug Dose 43.5 ml/min Estimated GFR () 52.1 Estimated GFR (Non- 45.0 BUN/Creatinine Ratio 18.9 Random Glucose 186 mg/dl Calcium Level 8.7 mg/dl Magnesium Level 2.1 mg/dl Triglycerides Level 163 mg/dl Cholesterol Level 142 mg/dl HDL Cholesterol 38 mg/dl LDL Cholesterol, Calculated 71 mg/dl VLDL Cholesterol, Calculated 33 mg/dl Cholesterol/HDL Ratio 3.7 Telemetry reviewed: Normal sinus rhythm with occasional PVC Assessment and Plan 1. Acute coronary syndrome: Likely remote. Patient has been started on dual anti-platelet therapy. Will continue his standard outpatient regimen for coronary artery disease. We are planning a perfusion study today in order to determine if he has a large area of myocardium at risk. In that event we may consider coronary angiography. If his perfusion study does not demonstrate any significant reversibility and he should be maintained on his current regimen including Plavix. Could then be discharged with routine follow-up in our clinic. 2. Coronary artery disease: Patient has had a quite remote bypass surgery. The exact anatomy is not available but we may be able to obtain this tomorrow from [place]. He has been maintained on aspirin, atorvastatin and beta blockade. 3. Ischemic cardiomyopathy: Patient has had some waxing and waning LV dysfunction over the years. His most recent echocardiogram looks good overall and I would estimate his overall ejection fraction in the low-normal range. He has been maintained on a beta-isabel but no Wesly inhibitor based on his degree of renal dysfunction.
[2017-11-14 11:21] VITALS: BP 148/67; PULSE 53; TEMP 36.7; O2SAT 98
[2017-11-14 14:28] VITALS: BP 148/67; PULSE 53; TEMP 36.7; O2SAT 98
[2017-11-14] MEDS ORDERED: PLV75 PO (15:48)
--- NOTE | 2017-11-14 15:56 | Discharge Instructions ---
Discharge Instructions Date of Service Nov 14, 2017. Admission Reason for Admission: Acute Coronary Syndrome Discharge Discharge Diagnosis / Problem: Remote acute coronary syndrome Discharge Goals Goal(s): Decrease discomfort, Improve function, Diagnostic testing, Therapeutic intervention Activity Recommendations Activity Limitations: resume your previous activity (as tolerated) . Instructions / Follow-Up Instructions / Follow-Up You were admitted to the hospital after presenting with increased fatigue with exertion and a history of chest pain about 1.5 weeks prior. Your cardiac work up revealed that you likely had a heart attack about 1.5 weeks ago when you had experienced that chest pain and are now recovering from that. As you are feeling essentially asymptomatic, you will be discharged home and scheduled for an outpatient nuclear perfusion study to further evaluate your heart. Medications: *Please take clopidogrel (Plavix) 75 mg daily. This is an anti-platelet medication, and it is recommended that you take this in addition to aspirin for your heart. *Continue your home medications as prescribed. Follow up: *You will be scheduled for an outpatient nuclear perfusion study, as well as a follow up appointment with cardiology. *You have been scheduled to follow up with your primary care provider, Dr. Hunter, on November 17, at 1:30 pm. Please seek medical attention if you experience fevers, chills, sweats, dizziness/lightheadedness, loss of consciousness, chest pain, shortness of breath, increased fatigue, nausea, vomiting, numbness or tingling. Activation of Emergency Medical System: Call 911, immediately, if you experience any of the following: Warning Signs and Symptoms of a Heart Attack: * Chest pain that is not relieved by medication * Shortness of breath Otherwise, call your doctor immediately if you have: * Lightheadedness, dizziness, or fainting * Feeling of irregular heartbeat or fast pulse Home Care: * Take your medications exactly as directed. Don't skip doses. * Remember that recovery after a heart attack takes time. Plan to rest for at lease 4-8 weeks while you recover. Then return to normal activity when your doctor says it's okay. * Ask your doctor about joining a heart rehabilitation program. * Tell your doctor if you are feeling depressed. Feelings of sadness are common after a heart attack, but it is important that you speak to someone if you are feeling overwhelmed by these feelings. * If you are having chest pain, call 911 for an ambulance. Do NOT drive yourself to the hospital. * Ask your family members to learn CPR. * Learn to take your own blood pressure and pulse. Keep a record of your results. Ask your doctor when you should seek emergency medical attention. He or she will tell you which blood pressure reading is dangerous. Lifestyle Changes: * Maintain a healthy weight. Get help to lose any extra pounds. * Cut back on salt. 1. Limit canned, dried, packaged, and fast foods. 2. Don't add salt to your food. 3. Season foods with herbs instead of salt when you cook. * Break the smoking habit. Enroll in a stop-smoking program to improve your chances of success. * Limit fatty foods. * Check your lipid levels regularly. (Your doctor can show you how to do this. ) * Build up your activity according to your doctor's recommendation. * Ask your doctor when it's okay to resume sexual activity. * Tell your doctor about any erectile dysfunction (ED) medication you are taking. Some ED medications are not safe if you take certain heart medications. * Try to manage stress. Follow Up: It is important for you to keep your follow up appointments with your medical provider. Current Hospital Diet Patient's current hospital diet: Diabetes Type 2 Diet Discharge Diet Recommended Diet: AHA Diet (Heart Healthy), Diabetes Type 2 Diet Pending Studies Studies pending at discharge: no Laboratory Results Hemoglobin A1c Test 11/13/17 08:32 Range/Units Estimated Average Glucose 140 mg/dl Hemoglobin A1c 6.5 H 4.5-5.6 % Lipid Panel Test 11/14/17 06:42 Range/Units Triglycerides Level 163 H 0-150 mg/dl Cholesterol Level 142 0-200 mg/dl HDL Cholesterol 38 mg/dl Cholesterol/HDL Ratio 3.7 LDL Cholesterol, Calculated 71 mg/dl Medical Emergencies . Who to Call and When: Medical Emergencies: If at any time you feel your situation is an emergency, please call 911 immediately. . Non-Emergent Contact Non-Emergency issues call your: Primary Care Provider, Wet Pour Mixer Call Non-Emergent contact if: you have a fever, your pain is not controlled, your pain is worsening, your pain is unusual for you, your pain is concerning you, you have any medication questions . Past History Medical & Surgical History: (1) Acute coronary syndrome . "Provider Documentation" section prepared by Serena Salas. . VTE Core Measure Inpt VTE Proph given/why not?: Unfractionated heparin SQ
--- NOTE | 2017-11-14 16:13 | Discharge Summary ---
Discharge Summary Date of Service Nov 14, 2017. Discharge Summary Admission Date: Nov 13, 2017 at 12:23 Discharge Date: Nov 14, 2017 Discharge Disposition: Home Principal Diagnosis: Remote heart attack Procedures: Echocardiogram: Interpretation Summary * Name: SULEIMAN RUST Study Date: 11/12/2017 01:23 PM BP: 148/65 mmHg * Patient Location: [facility] HR: 60 * : 1940 (M/d/yyyy) Gender: Male Height: 67 in * Age: 77 yrs Ethnicity: [place] Weight: 191 lb * Ordering Physician: Stefano Brooks * Performed By: Yelena Moreno RDCS * * Reason For Study: Chest pain * BSA: 2.0 m2 * -- Conclusions -- * Left ventricular systolic function is normal. * There is mild mitral regurgitation. * Right ventricular systolic pressure is elevated at 40-50mmHg. Procedure Details * A complete two-dimensional transthoracic echocardiogram was performed (2D, M-mode, Doppler and color flow Doppler). * A contrast injection of Definity was performed to improve assessment of LV function. * Contrast was injected into an intravenous site in the left arm. * One vial of Definity ultrasound contrast was diluted in normal saline to a total volume of 10 ml. A total of '2' ml of solution was administered during imaging. * Lot # [id number] of Definity utilized for procedure. * Expiration date 1 NOV 28. * The attending nurse who injected the contrast agent was Chelsie Shelby RN. Left Ventricle * The left ventricle is normal in size. * There is normal left ventricular wall thickness. * Ejection Fraction = 55-60%. * Left ventricular systolic function is normal. * There are regional wall motion abnormalities as specified. * There is distal anterior hypokinesis Right Ventricle * The right ventricle is normal in size and function. * The right ventricular systolic function is normal as assessed by tricuspid annular plane systolic excursion (TAPSE) (normal >1.5 cm). Atria * The left atrial size is normal. * Right atrial size is normal. Mitral Valve * The mitral valve is grossly normal. * There is mild mitral regurgitation. Tricuspid Valve * The tricuspid valve is not well visualized, but is grossly normal. * There is mild tricuspid regurgitation. * Right ventricular systolic pressure is elevated at 40-50mmHg. Aortic Valve * Aortic valve sclerosis mild, without significant aortic valvular stenosis. * No hemodynamically significant valvular aortic stenosis. * There is no significant aortic regurgitation. Pericardium/Pleural * There is no pericardial effusion. Great Vessels * Normal inferior vena cava diameter and respiratory variation suggests normal central venous pressure. Consultations: Cardiology Medication Reconciliation New Medications: Clopidogrel Bisulfate (Clopidogrel) 75 Mg Tab 75 MG PO QAM for 30 Days, #30 TAB Continued Medications: Amlodipine (Norvasc) 10 Mg Tab 10 MG PO DAILY, TAB Aspirin (Aspirin Ec) 81 Mg Tab 81 MG PO DAILY Atorvastatin (Lipitor) 40 Mg Tab 40 MG PO DAILY for 30 Days, #30 TAB 5 Refills Hydrochlorothiazide (Hydrochlorothiazide) 12.5 Mg Tab 12.5 MG PO DAILY, TAB Insulin Aspart (Novolog Flexpen) 100 Units/Ml Inj 45 UNITS SC ACHS PRN for SLIDING SCALE Insulin Detemir (Levemir Flextouch) 100 Unit/Ml Inj 15 UNITS SC QAM Insulin Detemir (Levemir Flextouch) 100 Unit/Ml Inj 18 UNITS SC QPM Lutein (Hm Lutein) 20 Mg Cap 20 MG PO DAILY Memantine (Namenda) 10 Mg Tab 10 MG PO BID, TAB Metformin HCl (Metformin HCl) 500 Mg Tab 1000 MG PO BID Metoprolol Succ (Toprol Xl) (Toprol-Xl) 25 Mg Tabcr 25 MG PO DAILY, TAB Discharge Exam The patient reports feeling well. He denies any recurrence of chest pain or shortness of breath. He denies any complaints. The patient denies fevers, chills, sweats, chest pain, palpitations, claudication, cough, wheezing, shortness of breath, nausea, vomiting, abdominal pain, dysuria, hematuria, urinary retention, paralysis, weakness, numbness and tingling. The patient had been scheduled for a nuclear perfusion study this afternoon, however received a call stating that the test could not be done due to insufficient materials. Patient stable for discharge and will opt for outpt testing instead. Constitutional: No fever, No chills, No sweats Eyes: No worsening of vision, No eye pain, No diplopia ENT: No hearing loss, No nasal symptoms, No trouble swallowing Respiratory: No cough, No wheezing, No shortness of breath Cardiovascular: No chest pain, No claudication, No palpitations Abdomen: No pain, No nausea, No vomiting Musculoskeletal: No joint pain, No muscle pain, No swelling Genitourinary - Male: No dysuria, No urinary retention, No hematuria Neurologic: No paralysis, No weakness, No numbness/tingling Integumentary: No rash, No itch, No color change General appearance: Well-developed, well-nourished, no apparent distress Head: Normocephalic, atraumatic Eyes: Normal inspection, PERRL, EOMI ENT: Normal ENT inspection, hearing grossly normal, pharynx normal Neck: Supple, no JVD, trachea midline Respiratory/Chest: Lungs clear to auscultation, normal breath sounds, no respiratory distress Cardiovascular: Regular rate & rhythm, no gallop, no murmur Abdomen/GI: Normal bowel sounds, non-tender, soft Extremities/Musculoskeletal: Normal inspection, no calf tenderness, no pedal edema Neurological/Psych: Alert, normal mood/affect, oriented x 3 Skin: Normal color, warm/dry, no rash Hospital Course 77 y/o male with a history of CAD, CABG x 4 in 2003, HTN, HLD, DM II, CKD stage III, and dementia who presents to the ED on 11/12 with recent chest pain within last 2 weeks. ACS, now remote--it appears this occurred about 10 days ago or so and is resolving -Admit to telemetry, will change to full admit. No acute events overnight, patient in sinus bradycardia with HR 40s-50s -Troponin trending down, last troponin 0.864 -EKG shows sinus ho with PVCs, T wave inversions in inferior leads resolved, TWI in anterior lead are more evident -Cardiology consulted, appreciate recs: Will schedule for outpt nuclear perfusion study and f/u. Discharge on Plavix in addition to ASA. Can discharge on home doses of statin and beta isabel. -Plavix 300 mg PO x 1 dose, then 75 mg PO qd -Continue ASA, atorvastatin, metoprolol -Lipid profile unremarkable -HgbA1c 6.5 on 11/13 -Echo shows LVEF of 55-60%. Mild mitral regurgitation. Distal anterior hypokinesis. RV systolic pressure elevated CAD, CABG x 4 in 2003, HTN, HLD--stable -Continue ASA 81 mg PO qd, Lipitor 40 mg PO qd -Resume Norvasc and HCTZ on d/c -Toprol XL increased to 25 mg PO BID on admission. Has been bradycardic here, return to home dose 25 mg PO qd. -Plavix as above DM II--HgbA1c 6.1 on 09/20/17 -Hold metformin, resume on d/c -Levemir 15 units SC qam and 18 units SC qpm -Insulin sliding scale -Check BSGs q ac and qhs CKD stage III--stable -Creatinine stable, at baseline Dementia -Continue Namenda 10 mg PO BID DVT prophylaxis -Heparin 5000 units SC q12h Code Status -Level I, FULL RESUSCITATION STATUS Total Time Spent: Greater than 30 minutes This includes examination of the patient, discharge planning, medication reconciliation, and communication with other providers. Discharge Instructions Please refer to the electronic Patient Visit Report (Discharge Instructions) for additional information. Additional Copies To Rambo Hunter M.D.
== END 2017-11-14 17:09 | disposition home or self-care (01) | DRG 282 ==
LOC: C.EDB 09:26 → C.2T 10:29 → ENRESERV 10:47 → OBSVTOIN 11-13 12:23
PROVIDERS: ADMIT Internal Medicine; ATTEND Hospitalist
DX: I21.4 Non-ST elevation (NSTEMI) myocardial infarction (principal); I25.5 Ischemic cardiomyopathy; I25.2 Old myocardial infarction; I13.10 Hypertensive heart and chronic kidney disease without heart failure, with stage 1 through stage 4 chronic kidney disease, or unspecified chronic kidney disease; I25.10 Atherosclerotic heart disease of native coronary artery without angina pectoris; E11.22 Type 2 diabetes mellitus with diabetic chronic kidney disease; N18.3 Chronic kidney disease, stage 3 (moderate); F03.90 Unspecified dementia, unspecified severity, without behavioral disturbance, psychotic disturbance, mood disturbance, and anxiety; E78.5 Hyperlipidemia, unspecified; Z51.81 Encounter for therapeutic drug level monitoring; Z79.899 Other long term (current) drug therapy; Z79.4 Long term (current) use of insulin; Z79.82 Long term (current) use of aspirin; Z95.1 Presence of aortocoronary bypass graft; Z87.891 Personal history of nicotine dependence; Z88.8 Allergy status to other drugs, medicaments and biological substances; Z83.3 Family history of diabetes mellitus; Z82.49 Family history of ischemic heart disease and other diseases of the circulatory system

== ENCOUNTER → 2017-11-22 | Outpatient (CLI) | payer OTHER ==
[~2017-11-22] MED LIST changes: -ASPI325T39 PO; +ASPI81TA28 PO; -CHOL100027 PO; +HYDR12.55 PO; +INSU3INJ3 SC; -INSUINJ12 SC; +LUTE1CAP4 PO; +LVMIPEN SC; +METO25TA3 PO; -METO50TA17 PO; -MULTTAB58 PO; +NMN10 PO; -OMEG12006 PO; +PLV75 PO; +REGADENOSON 0.4 MG/5 ML SYR ONE
--- NOTE | 2017-11-22 16:18 | Myocardial Perfusion Study ---
Myocardial Perfusion Study Rpt Myocardial Perfusion Study Rpt Myocardial Perfusion Study Rpt ONE DAY NUCLEAR MEDICINE LEXISCAN TECHNETIUM 99M MYOCARDIAL PERFUSION SCAN Indication: Recent NSTEMI, history of coronary artery disease with prior CABG Baseline ECG: Sinus bradycardia, heart rate 52, T-wave inversions potentially consistent with lateral ischemia. Stress ECG: No Lexiscan induced ST changes. No arrhythmias. HR amy from 52 to 80 representing 55 % MPHR. Technique: For the stress portion of the study 33 mCi of Technetium 99m Cardiolite IV was injected at 9:15 a.m. on 11/22/2017. 30 minutes following the injection, imaging of the heart was performed in multiple projections. For the rest portion of the study, 11.5 mCi of Technetium 99m Cardiolite was injected IV at 7:30 a.m. One hour following the injection, imaging of the hear was performed in the same projections. Findings: Rotating raw images were reviewed in detail. Potential sources of attenuation include minimal vertical motion on rest greater than stress, mild diaphragmatic attenuation a lateral, and minimal gut uptake impacting the inferior imaging border of the heart. No significant extracardiac pathologic uptake. Short axis, vertical long axis and horizontal long axis images were reviewed in detail. No visual TID. Large, severe, reversible perfusion defect involving the basal anterior, mid anterior, mid anterior lateral and apical lateral segments (SDS 9). Also a primarily fixed severe moderate sized inferior perfusion defect involving the base to mid wall with mild surrounding reversibility. Normal LV size. EDV 98 ml. Calculated EF 56 percent (likely an overestimate). Paradoxical septal motion consistent with postoperative state. Inferior base to mid akinesis. Mid anterolateral hypokinesis. SUMMARY: 1. Large, severe, reversible perfusion defect involving basilar anterior, mid anterior anterolateral and apical lateral segments. Potentially consistent with LAD/diagonal ischemia with patent distal bypass graft. SDS 9 consistent with 13% of myocardium at risk. 2. Primarily fixed, severe, base to mid inferior perfusion defect consistent with RCA/dominant circumflex infarct with blossom-infarct ischemia. 3. Normal LV size. Normal calculated LVEF 56% although likely overestimate. Paradoxical septal motion, base to mid inferior akinesis. Mild anterolateral hypokinesis. 4. Non-diagnostic stress ECG due to inability to reach target HR with Lexiscan.
== END | disposition home or self-care (01) ==
LOC: C.NUCL 07:07
PROVIDERS: ATTEND Internal Medicine Clinical Cardiac Electrophysiology
DX: I25.10 Atherosclerotic heart disease of native coronary artery without angina pectoris (principal)

== ENCOUNTER 2021-01-17 14:09 | Inpatient (IN) ==
[2021-01-17] MEDS ORDERED: NITROGLYCERIN SL 0.4 MG/TAB TAB SL STA ×2 (14:28→16:20)
[2021-01-17] MEDS ORDERED: ASPIRIN CHEW 324 MG PO STA (14:28)
[2021-01-17] MEDS ORDERED: SODIUM CHLORIDE 0.9% 500 ML IV ONE (14:31)
[2021-01-17 14:56] LABS: Basophils # (auto) 0.04 K/uL (0-0.2); Basophils % (auto) 0.4 %; Eosinophils # (auto) 0.13 K/uL (0-0.5); Eosinophils % (auto) 1.3 %; Hematocrit (blood only) 42.6 % (42-52); Hemoglobin 15.1 g/dL (14.0-18.0); Immature Granulocytes # (auto) 0.02 K/uL (0.00-0.02); Immature Granulocytes % (auto) 0.2 %; Lymphocytes # (auto) 2.24 K/uL (1.2-3.4); Lymphocytes % (auto) 22.5 %; Mean Corpuscular Hemoglobin 33.9 pg (25-34); Mean Corpuscular Hgb Conc 35.4 g/dL (32-36); Mean Corpuscular Volume 95.5 fL (80-100); Mean Platelet Volume 12.8 fL (7.4-10.4); Monocytes # (auto) 0.74 K/uL (0.11-0.59); Monocytes % (auto) 7.4 %; Neutrophils # (auto) 6.78 K/uL (1.4-6.5); Neutrophils % (auto) 68.2 %; Platelet Count 273 K/uL (130-400); RDW Coefficient of Variation 12.5 % (11.5-14.5); RDW Standard Deviation 43.5 fL (36.4-46.3); Red Blood Count 4.46 M/uL (4.7-6.1); White Blood Count 9.95 K/uL (4.8-10.8)
--- NOTE | 2021-01-17 14:59 | Emergency Department Note ---
Impression & Plan Acute non-ST elevation myocardial infarction (NSTEMI), Coronary artery disease, CKD (chronic kidney disease), Elevated troponin ED Provider Note NAME: SULEIMAN RUST AGE: 80 SEX: M ARRIVES VIA: Walk-In INFORMANT: Patient, ED PROVIDER(S): Hossein Vazquez MD CHIEF COMPLAINT: Chest pain PLAN: Disposition: Admit MEDICAL DECISION MAKING: The patient is a pleasant 88-year-old gentleman with a past medical history of CKD, CAD history of CABG, diabetes, hypertension, hyperlipidemia, dementia, cerebrovascular disease who presents emerge department coming by his with concern for substernal chest pain that initially began around noon when they were in the car and he was sitting without exertion and lasted approximately 15 minutes and resolved however then later at 1 PM noticed return of this pain which has been constant and radiating to his left shoulder. He denies any nausea vomiting, shortness of breath, recent illness including denies fevers, chills, cough, congestion, GI or symptoms. On arrival the patient is uncomfortable but no acute distress, afebrile with blood pressure 160s/80s and vital signs otherwise stable. He appears clinically dry. Exam is otherwise unremarkable. Initial EKG demonstrates sinus rhythm with occasional PVCs with subtle elevation in aVR with slightly depressed ST segments/ST abnormality anteriorly. Repeat EKG approximately 10 minutes later does show improvement in these changes and so at a minimum there is suspicion for dynamic EKG changes. He was ordered for aspirin and nitroglycerin with subsequent near resolution of CP. CXR without acute cardiopulmonary process. WBC, H/H, platelets wnl. Glucose 260 however chemistry without acidosis. Cr. 1.6 similar to prior range in the setting of CKD. Electrolytes unremarkable. LFTs without significant abnormality. Initial Troponin 0.03. Lipase wnl. Covid-19 PCR negative. I did review the patient's presentation and EKGs with Dr. Gar, interventional cardiology on-call and we agree with plan for treatment of his pain and if pain is controlled reasonable to admit for further management with heparin drip and possible consideration of catheterization during hospitalization. If the patient's pain persists/becomes worse then more immediate catheterization can be considered. Case was discussed with Dr. Nieto, [facility] hospitalist, who will evaluate the patient for admission. Triage Nursing notes reviewed and agree them. Prior medical records reviewed Vital Signs: reviewed and remarkable for no significant abnormalities Differential diagnosis: Cardiac ischemia, aortic dissection, pulmonary embolism, pneumothorax, pneumonia, pericarditis, myocarditis, esophageal rupture, GERD, cholecystitis, pancreatitis, musculoskeletal, as well as other pathologies. ER treatment provided: See below. Diagnostics interpreted by me: ECG 1423: Sinus rhythm with occasional PVCs, 70 bpm, left axis deviation, subtle elevation in aVR with ST abnormality/depression anteriorly. TC 432, cures 98. ECG 1432: Normal sinus rhythm with sinus arrhythmia, 62 bpm, no ectopy, improvement in ST changes from prior. QTc 430, QRS 98. Cardiac Monitoring: An order for continuous cardiac monitoring was placed and demonstrated Sinus rhythm, occasional PVCs, 70 bpm. Laboratory studies: See below Imaging studies: See below Consultation(s): Dr. Gar, Intervential Cardiology. Dr. Nieto, [facility] hospitalist. HPI: The patient is a pleasant 88-year-old gentleman with a past medical history of CKD, CAD history of CABG, diabetes, hypertension, hyperlipidemia, dementia, cerebrovascular disease who presents emerge department coming by his with concern for substernal chest pain that initially began around noon when they were in the car and he was sitting without exertion and lasted approximately 15 minutes and resolved however then later at 1 PM noticed return of this pain which has been constant and radiating to his left shoulder. He denies any nausea vomiting, shortness of breath, recent illness including denies fevers, chills, cough, congestion, GI or symptoms. ROS: See above HPI for pertinent positives & negatives. A total of 10 systems reviewed and were otherwise negative. PAST MEDICAL HISTORY:See Below PAST SURGICAL HISTORY:See Below FAMILY HISTORY:See Below SOCIAL HISTORY:See Below HOME MEDICATIONS:See Below ALLERGIES:See Below VITALS:See Below PHYSICAL EXAMINATION: GENERAL: Awake, alert, uncomfortable-appearing, in no distress HENT: Normocephalic, atraumatic. Oropharynx with dry mucous membranes and otherwise unremarkable. EYES: Normal conjunctiva. Sclera non-icteric. NECK: Supple. No nuchal rigidity. FROM. No JVD. RESPIRATORY: Clear to auscultation. CARDIAC: Regular rate, normal rhythm. Extremities warm and well perfused. Pulses equal. ABDOMEN: Soft, non-distended. No tenderness to palpation. No rebound or guarding. No masses. RECTAL: Deferred. MUSCULOSKELETAL: Chest examination reveals no tenderness. The back is symmetrical on inspection without obvious abnormality. There is no CVA tenderness to palpation. No joint edema. LOWER EXTREMITIES: Calves are equal size bilaterally and non-tender. No edema. No discoloration. NEURO: Normal sensorium. No sensory or motor deficits noted. SKIN: No rash or jaundice noted. ED COURSE: Critical Care: I have personally spent greater than 45 minutes of critical care time in the direct management of this patient. This includes bedside care, interpretation of diagnostic studies, and testing, discussion with consultants, patient, and family members, and other required patient management activities. This 45 minutes is in excess of all separately billable procedures. Hossein Vazquez MD Past Med/Surg History Medical History Cerebrovascular disease Chronic kidney disease, stage III (moderate) Coronary artery disease Dementia Followed by Neurology Diabetes mellitus, type II Followed by Endocrinology Hyperlipidemia Hypertension Hypertriglyceridemia Peripheral neuropathy Vitamin D deficiency Surgical History History of prostate biopsy S/P CABG (coronary artery bypass graft) S/P carotid endarterectomy S/P tonsillectomy Family History Mother Colorectal cancer Father Heart disease Prostate cancer Sister Parkinson disease Daughter Urinary calculus Denies family history of Ovarian cancer Myocardial infarction Breast cancer Cystic kidney disease Social History Smoking Status: Never smoker Tobacco Type: Cigarettes Age Started Using Tobacco: 14; Age Quit Using Tobacco: 18; Years Smoked: 4; Cigarettes Per Day: 10 a day; Second Hand Exposure: No; Hx Alcohol Use: Yes Alcohol type: beer Alcohol Intake Frequency: Monthly or Less Hx Substance Use: No Preferred Language: Uzbek Communication Ability: Effective Visual Impairment: No Limitations Hearing Ability: Normal Wellness Program Coordinator Required: No Beliefs That Will Affect Care: None marital status: Current Living Situation: Spouse current occupational status: retired How many Children do You have: 1 Other Information That Helps Us Care for You: No Feels Safe at Home: Yes Safety Concerns: Feels Safe At This Time Childhood Exposure to Second-Hand Smoke: Yes (father did a little ) caffeine: Yes (cup coffee daily ) Dental Care, Regularly: Yes Physical Activity Frequency: 3-4 Times per Week Seatbelt Use: always Sunscreen Use: Yes Assistive Devices: Denture - Upper Allergies Allergies Allergy/AdvReac Type Severity Reaction Status Date / Time donepezil Allergy Intermediate diarrhea Verified 10/31/20 10:15 TY Inhibitors AdvReac Intermediate increased Verified 10/31/20 10:15 creatinine Home Meds Previous Rx's Medication Instructions Recorded flash glucose scanning reader #1 ea 03/11/20 blood sugar diagnostic #400 ea 05/26/20 flash glucose sensor #2 ea 07/23/20 metformin 500 mg tablet 500 mg PO BID #180 tab 09/30/20 rivastigmine 9.5 mg TRANSDERMAL DAILY #30 ea 10/29/20 ergocalciferol (vitamin D2) 1,250 50,000 unit PO .COMPLEX #3 cap 11/03/20 mcg (50,000 unit) capsule icosapent ethyl 1 gram capsule 2 g PO BID #360 cap 12/15/20 memantine 10 mg tablet 10 mg PO BID 90 Days #180 tab 12/19/20 insulin aspar prot-insulin aspart See Rx Instructions SQ BID #60 ml 12/25/20 100 unit/mL (70-30) subcutaneous pen NovoFine Plus 32 gauge x 1/6" #200 ea NS 01/01/21 needle amlodipine 10 mg tablet 10 mg PO DAILY #90 tab 01/02/21 atorvastatin 40 mg tablet 40 mg PO DAILY #90 tab 01/02/21 clopidogrel 75 mg tablet 75 mg PO DAILY #90 tab 01/02/21 hydrochlorothiazide 12.5 mg tablet 12.5 mg PO DAILY #90 tab 01/02/21 metoprolol succinate 25 mg 25 mg PO DAILY #90 tab 01/02/21 tablet,extended release 24 hr Results & Data (ED) Vital Signs Vital Signs - 24 hr 01/17/21 14:17 01/17/21 14:30 01/17/21 14:41 Temperature 36.8 C Temperature Source Temporal Artery Scan Pulse Rate 67 63 Pulse Rate [Apical] Pulse Rate from SpO2 Sensor 64 Pulse Rhythm Pulse Rhythm [Apical] Pulse Strength [Apical] Respiratory Rate 18 18 Respiratory Effort / Characteristics Non-Labored Spontaneous Non-Labored Spontaneous Respiratory Depth Normal Normal Respiratory Pattern Regular Blood Pressure 161/80 H 151/78 H Blood Pressure [Right Arm] Blood Pressure Mean 107 102 Blood Pressure Mean [Right Arm] Blood Pressure Position Sitting Blood Pressure Position [Right Arm] Pulse Oximetry 97 97 Oxygen Delivery Method Room Air Room Air Sepsis Recent Fever Within 48 Hours No Sepsis New/Unexplained Change in Mental Status N/A Sepsis Action Taken by Nursing No Action Required 01/17/21 14:42 01/17/21 14:56 01/17/21 15:00 Temperature Temperature Source Pulse Rate 56 L 59 L 58 L Pulse Rate [Apical] 56 L Pulse Rate from SpO2 Sensor 58 L 61 Pulse Rhythm Regular Pulse Rhythm [Apical] Regular Pulse Strength [Apical] Normal Respiratory Rate 20 22 16 Respiratory Effort / Characteristics Non-Labored Spontaneous Respiratory Depth Normal Respiratory Pattern Regular Blood Pressure 137/73 150/78 H Blood Pressure [Right Arm] 140/77 Blood Pressure Mean 94 102 Blood Pressure Mean [Right Arm] 98 Blood Pressure Position Blood Pressure Position [Right Arm] Sitting Pulse Oximetry 98 94 98 Oxygen Delivery Method Room Air Sepsis Recent Fever Within 48 Hours Sepsis New/Unexplained Change in Mental Status Sepsis Action Taken by Nursing 01/17/21 15:30 01/17/21 16:00 01/17/21 16:30 Temperature Temperature Source Pulse Rate 55 L 53 L 57 L Pulse Rate [Apical] Pulse Rate from SpO2 Sensor 55 L 53 L 56 L Pulse Rhythm Pulse Rhythm [Apical] Pulse Strength [Apical] Respiratory Rate 16 16 18 Respiratory Effort / Characteristics Respiratory Depth Respiratory Pattern Blood Pressure 155/82 H 161/82 H 152/73 H Blood Pressure [Right Arm] Blood Pressure Mean 106 108 99 Blood Pressure Mean [Right Arm] Blood Pressure Position Blood Pressure Position [Right Arm] Pulse Oximetry 96 99 100 Oxygen Delivery Method Sepsis Recent Fever Within 48 Hours Sepsis New/Unexplained Change in Mental Status Sepsis Action Taken by Nursing Laboratory Data Attestation: I reviewed the patient's lab results. Result diagrams: 01/17/21 14:42 01/17/21 14:42 Lab Results 01/17/21 01/17/21 01/17/21 Range/Units 14:42 14:42 14:42 WBC 9.95 (4.8-10.8) K/uL RBC 4.46 L (4.7-6.1) M/uL Hgb 15.1 (14.0-18.0) g/dL Hct 42.6 (42-52) % MCV 95.5 (80-100) fL MCH 33.9 (25-34) pg MCHC 35.4 (32-36) g/dL RDW Std Deviation 43.5 (36.4-46.3) fL RDW Coeff of Estefania 12.5 (11.5-14.5) % Plt Count 273 (130-400) K/uL MPV 12.8 H (7.4-10.4) fL Immature Gran % (Auto) 0.2 % Neut % (Auto) 68.2 % Lymph % (Auto) 22.5 % [place]ila % (Auto) 7.4 % Eos % (Auto) 1.3 % Baso % (Auto) 0.4 % Neut # (Auto) 6.78 H (1.4-6.5) K/uL Lymph # (Auto) 2.24 (1.2-3.4) K/uL [place]ila # (Auto) 0.74 H (0.11-0.59) K/uL Eos # (Auto) 0.13 (0-0.5) K/uL Baso # (Auto) 0.04 (0-0.2) K/uL Immature Gran # (Auto) 0.02 (0.00-0.02) K/uL PT 10.8 (9.0-12.0) Seconds INR 1.1 (0.9-1.1) Sodium 137 (136-145) mmol/L Potassium 4.3 (3.5-5.1) mmol/L Chloride 105 (98-107) mmol/L Carbon Dioxide 25 (21-32) mmol/L Anion Gap 7.0 (3-11) BUN 22 H (7-18) mg/dl Creatinine 1.66 H (0.6-1.4) mg/dl Est Cr Clr Drug Dosing 38.5 ml/min Est GFR ( Amer) 44.4 Est GFR (Non-Af Amer) 38.3 BUN/Creatinine Ratio 13.4 (10-20) Glucose 260 H (70-99) mg/dl Calcium 8.9 (8.5-10.1) mg/dl Phosphorus 2.7 (2.5-4.9) mg/dl Magnesium 1.9 (1.8-2.4) mg/dl Total Bilirubin 0.6 (0.2-1) mg/dl Direct Bilirubin < 0.1 (0-0.2) mg/dl AST 16 (15-37) U/L ALT 30 (12-78) U/L Alkaline Phosphatase 115 (45-117) U/L Troponin I 0.030 (0-0.045) ng/ml Total Protein 7.7 (6.4-8.2) gm/dl Albumin 3.9 (3.4-5.0) gm/dl Globulin 3.8 (2.5-4.0) gm/dl Albumin/Globulin Ratio 1.0 (0.9-2) Lipase 276 (73-393) U/L COVID-19 Eval Order SARS-CoV-2 (PCR) (Negative) Influenza Type A (PCR) (Neg) Influenza Type B (PCR) (Neg) RSV (RT-PCR) (Neg) 01/17/21 01/17/21 Range/Units 14:56 14:56 WBC (4.8-10.8) K/uL RBC (4.7-6.1) M/uL Hgb (14.0-18.0) g/dL Hct (42-52) % MCV (80-100) fL MCH (25-34) pg MCHC (32-36) g/dL RDW Std Deviation (36.4-46.3) fL RDW Coeff of Estefania (11.5-14.5) % Plt Count (130-400) K/uL MPV (7.4-10.4) fL Immature Gran % (Auto) % Neut % (Auto) % Lymph % (Auto) % [place] % (Auto) % Eos % (Auto) % Baso % (Auto) % Neut # (Auto) (1.4-6.5) K/uL Lymph # (Auto) (1.2-3.4) K/uL [place]ila # (Auto) (0.11-0.59) K/uL Eos # (Auto) (0-0.5) K/uL Baso # (Auto) (0-0.2) K/uL Immature Gran # (Auto) (0.00-0.02) K/uL PT (9.0-12.0) Seconds INR (0.9-1.1) Sodium (136-145) mmol/L Potassium (3.5-5.1) mmol/L Chloride (98-107) mmol/L Carbon Dioxide (21-32) mmol/L Anion Gap (3-11) BUN (7-18) mg/dl Creatinine (0.6-1.4) mg/dl Est Cr Clr Drug Dosing ml/min Est GFR ( Amer) Est GFR (Non-Af Amer) BUN/Creatinine Ratio (10-20) Glucose (70-99) mg/dl Calcium (8.5-10.1) mg/dl Phosphorus (2.5-4.9) mg/dl Magnesium (1.8-2.4) mg/dl Total Bilirubin (0.2-1) mg/dl Direct Bilirubin (0-0.2) mg/dl AST (15-37) U/L ALT (12-78) U/L Alkaline Phosphatase (45-117) U/L Troponin I (0-0.045) ng/ml Total Protein (6.4-8.2) gm/dl Albumin (3.4-5.0) gm/dl Globulin (2.5-4.0) gm/dl Albumin/Globulin Ratio (0.9-2) Lipase (73-393) U/L COVID-19 Eval Order CovFluRsv at [facility] [place] SARS-CoV-2 (PCR) NEGATIVE (Negative) Influenza Type A (PCR) Negative (Neg) Influenza Type B (PCR) Negative (Neg) RSV (RT-PCR) Negative (Neg) Administered Medications Hydralazine HCl (Hydralazine 10 Mg Tab) 10 mg PO BID [facility] Stop: 02/16/21 20:59 Last Admin: 01/17/21 21:53 Dose: 10 mg Documented by: [id number] Heparin Sodium/Dextrose (Heparin Sodium/Dextrose) 25,000 units in 500 mls @ 18 mls/hr IV .Q24H [facility]; Protocol Stop: 02/16/21 15:44 Last Admin: 01/17/21 16:39 Dose: 900 units/hr, 18 mls/hr Documented by: [id number] Cosigned by: [id number] Insulin Aspart (Insulin Aspart 100 Units/Ml 3 Ml Pen) 0 units SC ACHS [facility] Stop: 02/16/21 20:59 Last Admin: 01/17/21 22:59 Dose: 7 units Documented by: [id number] Cosigned by: [id number] Insulin Glargine (Insulin Glargine Solostar 100 Units/Ml 3 Ml Pen) 20 units SC 20 [facility] Stop: 02/16/21 19:59 Last Admin: 01/17/21 21:50 Dose: 20 units Documented by: [id number] Cosigned by: [id number] Memantine (Memantine Hcl 10 Mg Tab) 10 mg PO BID [facility] Stop: 02/16/21 20:59 Last Admin: 01/17/21 21:53 Dose: 10 mg Documented by: [id number] Miscellaneous (Icosapent Ethyl [Vascepa] 1 Gram Cap: Order Awaiting Action) 1 ea N/A QS [facility] Stop: 02/17/21 00:00 Last Admin: 01/18/21 01:02 Dose: Not Given Documented by: [id number] Miscellaneous (Rivastigmine 9.5 Mg/24 Hr Patch 24 Hr: Order Awaiting Action) 1 ea N/A QS [facility] Stop: 02/17/21 00:00 Last Admin: 01/18/21 01:02 Dose: Not Given Documented by: [id number] Nitroglycerin (Nitroglycerin 2% Ointment 30gm Tube) 1 inch EXT Q6H [facility] Stop: 02/16/21 16:59 Last Admin: 01/17/21 23:27 Dose: 1 inch Documented by: [id number] Admin: 01/17/21 17:40 Dose: 1 inch Documented by: [id number] Discontinued Medications Aspirin (Aspirin Chew 324 Mg) 324 mg PO NOW STA Stop: 01/17/21 14:29 Last Admin: 01/17/21 14:48 Dose: 324 mg Documented by: [id number] Heparin Sodium (Porcine) (Heparin Sod (Porcine) 1000 Unit/Ml 10 Ml Vial) Confirm Administered Dose 10,000 units .ROUTE .STK-MED ONE Stop: 01/17/21 16:31 Last Admin: 01/17/21 16:39 Dose: 4,000 units Documented by: [id number] Cosigned by: [id number] Heparin Sodium/Dextrose (Heparin Iv Low Dose With Bolus) 1 ea IV NOW STA; Protocol Stop: 01/17/21 15:36 Last Admin: 01/17/21 16:39 Dose: 1 ea Documented by: [id number] Sodium Chloride (Nss) 500 mls @ 999 mls/hr IV .Q31M ONE Stop: 01/17/21 15:01 Last Infusion: 01/17/21 20:46 Dose: 0 mls/hr Documented by: [id number] Admin: 01/17/21 14:49 Dose: 999 mls/hr Documented by: [id number] Nitroglycerin (Nitroglycerin Sl 0.4 Mg/Tab Tab) 0.4 mg SL NOW STA Stop: 01/17/21 14:29 Last Admin: 01/17/21 14:48 Dose: 0.4 mg Documented by: [id number] Nitroglycerin (Nitroglycerin Sl 0.4 Mg/Tab Tab) 0.4 mg SL NOW STA Stop: 01/17/21 16:21 Last Admin: 01/17/21 16:40 Dose: 0.4 mg Documented by: [id number] Imaging Data Radiologist's Impression: Chest X-Ray 01/17/21 14:29 XR chest 1V portable HISTORY: Atypical Chest Pain COMPARISON: Chest 11/12/2017. FINDINGS: There are poststernotomy changes. The heart remains mildly enlarged. No new focal lung consolidations to suggest pneumonia. No evidence for pulmonary edema. No pleural effusions. No pneumothorax. IMPRESSION: No significant change compared to the prior study. No acute process. Stable cardiomegaly. ACT 112: Negative or not required by law. Electronically signed by: Ernie Warner M.D. 01/17/2021 4:11 PM Discharge Plan Visit Data Chief Complaint: Chest Pain Stated Complaint: CHEST PAIN ED Provider: Hossein Vazquez Discharge Problem: Acute non-ST elevation myocardial infarction (NSTEMI), Coronary artery disease, CKD (chronic kidney disease), Elevated troponin Patient Disposition: Admitted As Inpatient Discharge Instructions Interventions: ED Discharge Assessment Last Done: 01/17/21 19:01 Discharge Problem: Coronary artery disease Qualifiers: Coronary Disease-Associated Artery/Lesion type: unspecified vessel or lesion type [place] vs. transplanted heart: [place] heart Associated angina: with unstable angina Qualified Code(s): I25.110 - Atherosclerotic heart disease of [place] coronary artery with unstable angina pectoris CKD (chronic kidney disease) Qualifiers: Chronic kidney disease stage: unspecified stage Qualified Code(s): N18.9 - Chronic kidney disease, unspecified
[2021-01-17] MEDS ORDERED: NITROGLYCERIN SL 0.4 MG/TAB TAB SL PRN ×2 (15:04→19:50)
[2021-01-17 15:06] LABS: INR 1.1 (0.9-1.1); Prothrombin Time 10.8 Seconds (9.0-12.0)
[2021-01-17 15:12] LABS: Alanine Aminotransferase 30 U/L (12-78); Albumin Level 3.9 gm/dl (3.4-5.0); Aspartate Aminotransferase 16 U/L (15-37); BUN Creatinine Ratio 13.4 (10-20); Bilirubin Direct < 0.1 mg/dl (0-0.2); Blood Urea Nitrogen 22 mg/dl (7-18); Calcium 8.9 mg/dl (8.5-10.1); Carbon Dioxide 25 mmol/L (21-32); Chloride 105 mmol/L (98-107); Creatinine Clr Calc Pharmacy 38.5 ml/min; Est GFR (African American) 44.4; Est GFR (Non-African American) 38.3; Glucose 260 mg/dl (70-99); Lipase 276 U/L (73-393); Magnesium 1.9 mg/dl (1.8-2.4); Potassium 4.3 mmol/L (3.5-5.1); Sodium 137 mmol/L (136-145)
[2021-01-17 15:15] LABS: Alkaline Phosphatase 115 U/L (45-117); Bilirubin,Total 0.6 mg/dl (0.2-1); Globulin 3.8 gm/dl (2.5-4.0); Phosphorus 2.7 mg/dl (2.5-4.9); Total Protein 7.7 gm/dl (6.4-8.2)
[2021-01-17] MEDS ORDERED: Heparin IV Adult Wt-Based Low-Dose WITH Bolus Protocol IV STA (15:35)
[2021-01-17 16:07] LABS: Influenza A virus by PCR Negative (Neg); Influenza B virus by PCR Negative (Neg); RSV by PCR Negative (Neg); SARS CoV2 RNA(COVID-19) InHosp NEGATIVE (Negative)
--- NOTE | 2021-01-17 16:13 | XRay Report ---
XR chest 1V portable HISTORY: Atypical Chest Pain COMPARISON: Chest 11/12/2017. FINDINGS: There are poststernotomy changes. The heart remains mildly enlarged. No new focal lung cons olidations to suggest pneumonia. No evidence for pulmonary edema. No pleural effusions. No pneumothor ax. IMPRESSION: No significant change compared to the prior study. No acute process. Stable cardiomegaly. ACT 112: Negative or not required by law. Electronically signed by: Ernie Warner M.D. 01/17/2021 4:11 PM
[2021-01-17] MEDS ORDERED: HEPARIN SOD (PORCINE) 1000 UNIT/ML ONE (16:30)
[2021-01-17] MEDS: HEPARIN SODIUM/DEXTROSE 25,000 UNITS/500 ML BAG IV SCH (16:39)
--- NOTE | 2021-01-17 16:59 | History & Physical Report ---
Date of Service January 17, 2021 Assessment & Plan (1) Chest pain: With radiation to left arm and ECG change - Asa and NTG SL given in the EMD - 1 more SL NTG given that relieved CP- placed on NTG paste 1"--- if pain reoccurs consider NTG drip as well for BP control. - Will need to decrease BP for reduction of double product and MVO2 stress - Heparin drip - Interventionalist consulted- appreciate their assistance - Multiple risk factors - ECHO while in house if he does not go to suite (2) Coronary artery disease: As above- 4V CABG - no significant reversible ischemia noted from 2019 NON-invasive exam - Preserved EF - Continue Metoprolol - ASA for primary prevention added for morning - Continue Icosapent 1gm - Continue high dose Atorvastatin 40mg and icosapent (3) Hypertriglyceridemia: As above, lipids in the morning (4) Hypertension: As above - Consider NTG although would likely require elevated dose for response - Hydralazine (PO/IV) vs. NTG. vs. Cardene (if severely needed) - bradycardia prevents other agents (5) Diabetes mellitus, type II: HGB A1C in morning - Lantus 20 sub q PM - Sliding scale aspart coverage 20 correction factor 15 gm CHO3 (6) Dementia: Continue rivastigmine patch (7) Chronic kidney disease, stage III (moderate): Continue to cotnrol risks- HTN, HLD, DM - Avoid nephrotoxic agents, however if needed minimize exposure time (8) Cerebrovascular disease: Vascular dementia likely- as above statin, BP control, Glucose control History of Present Illness Chief Complaint: chest pain Primary Care Provider: Agapito June, DO 80 YOM with past medical history of CABG (2003), CAD, HTN, HLD, DM II on insulin, Parkinson, CKD IIIa, vascular dementia. Patient comes in to the EMD today for complaints of chest pain that started around 10:30-1100 this morning. The patient was not doing anything strenous at that time, but the pain was located in the center of his chest, he can't describe it, "it just hurts". The pain at worse was about 3-4/10 and now is around a 1-2, but is still there. The pain this morning went into his left arm across his chest and then went away. He was out driving around when it happened again, so they came to the EMD. The patient had a Troponin I at 1440 today by the EMD that was 0.[address] and T-wave changes inferior and anterior. The patient HR is normally in the 50- 60 range and is so a this time, his BP however has been in the 150-160 range. The EMD staff spoke with the interventionalist director of retail operations and patient will be admitted to trend troponin and ECG as well as heparin drip and the hospitalist service was notified for admission. Upon my evaluation, the patient was still having some chest pain to the center of his chest and was given another NTG table 0.4mg SL, with improvement. Will target symptoms and BP management. Allergies Allergy/AdvReac Type Severity Reaction Status Date / Time donepezil Allergy Intermediate diarrhea Verified 10/31/20 10:15 TY Inhibitors AdvReac Intermediate increased Verified 10/31/20 10:15 creatinine Home Medications Medication Instructions Recorded Confirmed Type flash glucose scanning reader #1 ea 03/11/20 10/31/20 Rx blood sugar diagnostic #400 ea 05/26/20 10/31/20 Rx flash glucose sensor #2 ea 07/23/20 10/31/20 Rx metformin 500 mg tablet 500 mg PO BID #180 tab 09/30/20 01/17/21 Rx rivastigmine 9.5 mg TRANSDERMAL DAILY #30 ea 10/29/20 01/17/21 Rx ergocalciferol (vitamin D2) 1,250 50,000 unit PO .COMPLEX #3 cap 11/03/20 01/17/21 Rx mcg (50,000 unit) capsule icosapent ethyl 1 gram capsule 2 g PO BID #360 cap 12/15/20 01/17/21 Rx memantine 10 mg tablet 10 mg PO BID 90 Days #180 tab 12/19/20 01/17/21 Rx insulin aspar prot-insulin aspart See Rx Instructions SQ BID #60 ml 12/25/20 01/17/21 Rx 100 unit/mL (70-30) subcutaneous pen NovoFine Plus 32 gauge x 1/6" #200 ea NS 01/01/21 Rx needle amlodipine 10 mg tablet 10 mg PO DAILY #90 tab 01/02/21 01/17/21 Rx atorvastatin 40 mg tablet 40 mg PO DAILY #90 tab 01/02/21 01/17/21 Rx clopidogrel 75 mg tablet 75 mg PO DAILY #90 tab 01/02/21 01/17/21 Rx hydrochlorothiazide 12.5 mg tablet 12.5 mg PO DAILY #90 tab 01/02/21 01/17/21 Rx metoprolol succinate 25 mg 25 mg PO DAILY #90 tab 01/02/21 01/17/21 Rx tablet,extended release 24 hr Past Med/Surg History Medical History (Updated 01/19/21 @ 17:16 by Norman Bragg PA-C) Cerebrovascular disease Chronic kidney disease, stage III (moderate) Coronary artery disease Dementia Followed by Neurology Diabetes mellitus, type II Followed by Endocrinology Hyperlipidemia Hypertension Hypertriglyceridemia Peripheral neuropathy Vitamin D deficiency Surgical History History of prostate biopsy S/P CABG (coronary artery bypass graft) S/P carotid endarterectomy S/P tonsillectomy Family History Mother Colorectal cancer Father Heart disease Prostate cancer Sister Parkinson disease Daughter Urinary calculus Denies family history of Ovarian cancer Myocardial infarction Breast cancer Cystic kidney disease Social History Smoking Status: Never smoker Tobacco Type: Cigarettes Age Started Using Tobacco: 14; Age Quit Using Tobacco: 18; Years Smoked: 4; Cigarettes Per Day: 10 a day; Second Hand Exposure: No; Hx Alcohol Use: Yes Alcohol type: beer Alcohol Intake Frequency: Monthly or Less Hx Substance Use: No Preferred Language: Vietnamese Communication Ability: Effective Visual Impairment: No Limitations Hearing Ability: Normal Home Health Speech Therapist Required: No Beliefs That Will Affect Care: None marital status: Current Living Situation: Spouse current occupational status: retired How many Children do You have: 1 Feels Safe at Home: Yes Childhood Exposure to Second-Hand Smoke: Yes (father did a little ) caffeine: Yes (cup coffee daily ) Dental Care, Regularly: Yes Physical Activity Frequency: 3-4 Times per Week Seatbelt Use: always Sunscreen Use: Yes Assistive Devices: None Review of Systems Review of Systems: REVIEW OF SYSTEMS: Constitutional: No fever, sweats or chills Eyes: No diplopia, no worsening or blurred vision ENT: (+) difficulty hearing, no trouble swallowing Respiratory: No cough, sputum, dyspnea at rest or on exertion Cardiovascular: (+) chest pain, tightness, (-) palpitations Abdomen: No pain, nausea, vomiting, diarrhea or constipation Musculoskeletal: No joint pain, calf pain, swelling Neurologic: No weakness, numbness/tingling, or balance problems Psychiatric: No anxiety or depression Skin: No rash or itch Physical Exam Physical Exam: PHYSICAL EXAM: General: awake, alert, no apparent distress Head: Normocephalic, atraumatic ENT: PERRL, EOMI, no pharyngeal exudate, mucous membranes moist Neuro: AAO x 3, speech clear and appropriate, strength intact bilaterally 5/5, sensation intact and equal all extremities and dermatomes, no pronator drift Chest: equal rise and fall of the chest, no accessory muscle use, no heaves or thrills, Clear to auscultation, on room air, Cardiac: Regular rate and rhythm, telemetry reviewed, skin warm dry, cap refill <3 seconds, peripheral pulses +2 no JVD, no murmur, no JVD, no edema GI: NABS x 4 quadrants, soft, nontender to palpation, no rebound, guarding or tenderness : Spontaneously voiding, no pain, no CVA tenderness, Extremities: Normal inspection, no peripheral edema or erythema, calfs nontender to palpation Psych: Normal mood and affect Skin: no rash or erythema Results & Data Results & Data ([facility]) Vital Signs (Past 12 Hours) Vital Signs Temp Pulse Pulse Resp BP BP Pulse Ox 01/17/21 16:00 53 L 16 161/82 H 99 01/17/21 15:30 55 L 16 155/82 H 96 01/17/21 15:00 58 L 16 150/78 H 98 01/17/21 14:56 59 L 22 137/73 94 01/17/21 14:42 56 L 56 L 20 140/77 98 01/17/21 14:41 63 18 151/78 H 97 01/17/21 14:17 36.8 C 67 18 161/80 H 97 Laboratory Results Abnormal lab results 01/17/21 01/17/21 Range/Units 14:42 14:42 RBC 4.46 L (4.7-6.1) M/uL MPV 12.8 H (7.4-10.4) fL Neut # (Auto) 6.78 H (1.4-6.5) K/uL [place] # (Auto) 0.74 H (0.11-0.59) K/uL BUN 22 H (7-18) mg/dl Creatinine 1.66 H (0.6-1.4) mg/dl Glucose 260 H (70-99) mg/dl Diagnostic Findings XR chest 1V portable HISTORY: Atypical Chest Pain COMPARISON: Chest 11/12/2017. FINDINGS: There are poststernotomy changes. The heart remains mildly enlarged. No new focal lung consolidations to suggest pneumonia. No evidence for pulmonary edema. No pleural effusions. No pneumothorax. IMPRESSION: No significant change compared to the prior study. No acute process. Stable cardiomegaly. Medications Administered Heparin Sodium/Dextrose (Heparin Sodium/Dextrose) 25,000 units in 500 mls @ 0.02 mls/hr IV .Q24H ON LICENSE OF [facility]; Protocol Stop: 02/16/21 15:44 Last Admin: 01/17/21 16:39 Dose: 900 units/hr, 18 mls/hr Documented by: [id number] Cosigned by: [id number] Discontinued Medications Aspirin (Aspirin Chew 324 Mg) 324 mg PO NOW STA Stop: 01/17/21 14:29 Last Admin: 01/17/21 14:48 Dose: 324 mg Documented by: [id number] Heparin Sodium (Porcine) (Heparin Sod (Porcine) 1000 Unit/Ml 10 Ml Vial) Confirm Administered Dose 10,000 units .ROUTE .STK-MED ONE Stop: 01/17/21 16:31 Last Admin: 01/17/21 16:39 Dose: 4,000 units Documented by: [id number] Cosigned by: [id number] Sodium Chloride (Nss) 500 mls @ 999 mls/hr IV .Q31M ONE Stop: 01/17/21 15:01 Last Admin: 01/17/21 14:49 Dose: 999 mls/hr Documented by: [id number] Nitroglycerin (Nitroglycerin Sl 0.4 Mg/Tab Tab) 0.4 mg SL NOW STA Stop: 01/17/21 14:29 Last Admin: 01/17/21 14:48 Dose: 0.4 mg Documented by: [id number] Nitroglycerin (Nitroglycerin Sl 0.4 Mg/Tab Tab) 0.4 mg SL NOW STA Stop: 01/17/21 16:21 Last Admin: 01/17/21 16:40 Dose: 0.4 mg Documented by: [id number] ECG Additional Comments: Normal sinus rhythm with sinus arrhythmia Left axis deviation Inferior-posterior infarct (cited on or before 17-JAN-2021) Abnormal ECG When compared with ECG of 17-JAN-2021 14:23, (unconfirmed) Premature ventricular complexes are no longer Present Serial changes of evolving Inferior- posterior infarct Present Code Status & VTE Plan Code Status CODE: FULL VTE: SCD's, Heparin VTE Prophylaxis Plan VTE Prophylaxis will be ordered: Yes Supervising Physician Co-Signing Physician Notes Attending Attestation: Pt seen/examined, chart reviewed, admit care plan d/w KUNAL Reynoso. I agree w/ the [place] components of his documentation. 80yo male with known CAD s/p CABG in the remote past, CKD stage 3, T2DM, HTN, dementia - presents with chest discomfort starting earlier today. Pain is substernal, does not radiate, and is 5 or less on pain scale. Pain is constant. During my admission assessment in the ER he stated that the discomfort was down to a 1 or 2 with nitrates. Denies recent cardiopulmonary symptoms although he was moving large brick pavers the other day and felt a little short of breath with such. Initial troponin in ER 0.[address]KG with lateral ST segment changes. PMH, PSH, allergies, meds, sochx, famhx - reviewed VSS although BP mildly elevated gen - NAD, mild cognitive impairment/forgetful, often repeating prior statements neck - no JVD heart - RRR with extra beats, s1s2 lungs - CTA b/l chest - no reproducible chest wall pain to palpation abd - soft NT ext - no edema labs, EKG, cxr - reviewed A/P: 1. unstable angina in patient w/ known CAD - heparin drip, nitrates, continue statin/beta isabel/aspirin/plavix. serial troponins. serial EKGs. if pain/discomfort does not resolve with topical nitrates then employ nitro drip and/or morphine. additionally, if pain is refractory, then heart alert will be called. Mr Reynoso discussed care with Dr Gar from cardiology. 2. CKD stage 3 - Cr stable at 1.6. 3. HTN - topical nitrates may help elevated BPs; if additional BP control is needed consider oral imdur, hydralazine, etc. no evidence of complicating CHF at this time. Derick Nieto MD PG Care Time/CCT Total # of Minutes Spent Total Time Spent with Patient: Total time spent is greater than 50% in c oordination of care (as documented) at patient's floor/unit and/or counseling patient: Coding Level of Care Code 14405 Initial Inpt Care Lvl 3 Diagnoses Chest pain R07.9 Chest pain type: unspecified Coronary artery disease I25.119 Associated angina: with unspecified form of angina Coronary Disease-Associated Artery/Lesion type: [place] artery [place] vs. transplanted heart: [place] heart Hypertriglyceridemia E78.1 Hypertension I10 Hypertension type: essential hypertension Diabetes mellitus, type II E11.59; Z79.4 Diabetes mellitus complication detail: with other circulatory complications Diabetes mellitus complication status: with circulatory complication Diabetes mellitus jail insulin use: with jail use Dementia F03.91 Dementia behavioral disturbance: with behavioral disturbance Dementia type: unspecified type Chronic kidney disease, stage III (moderate) N18.32 Chronic kidney disease stage 3 subtype: stage 3b (GFR 30-44) Cerebrovascular disease I67.9 (1) Diabetes mellitus, type II Diabetes mellitus complication detail: with other circulatory complications Diabetes mellitus complication status: with circulatory complication Diabetes mellitus jail insulin use: with watermelon harvesting supervisor use Qualified Code(s): E11.59 - Type 2 diabetes mellitus with other circulatory complications; Z79.4 - technician terminal and repeater (current) use of insulin (2) Chronic kidney disease, stage III (moderate) Chronic kidney disease stage 3 subtype: stage 3b (GFR 30-44) Qualified Code(s): N18.32 - Chronic kidney disease, stage 3b (3) Coronary artery disease Associated angina: with unspecified form of angina Coronary Disease- Associated Artery/Lesion type: [place] artery [place] vs. transplanted heart: [place] heart Qualified Code(s): I25.119 - Atherosclerotic heart disease of [place] coronary artery with unspecified angina pectoris (4) Dementia Dementia behavioral disturbance: with behavioral disturbance Dementia type: unspecified type Qualified Code(s): F03.91 - Unspecified dementia with behavioral disturbance (5) Chest pain Chest pain type: unspecified Qualified Code(s): R07.9 - Chest pain, unspecified (6) Hypertension Hypertension type: essential hypertension Qualified Code(s): I10 - Essential (primary) hypertension
[2021-01-17] MEDS: NITROGLYCERIN 2% OINTMENT 30GM TUBE EXT SCH ×2 (17:40→23:27)
[2021-01-17] MEDS ORDERED: POLYETHYLENE (MIRALAX) 17 GM PACK PO PRN (19:50)
[2021-01-17] MEDS ORDERED: GLUCOSE 10 TABS/TUBE PO PRN (19:50)
[2021-01-17] MEDS ORDERED: CARBOHYDRATES FOR HYPOGLYCEMIA PO PRN (19:50)
[2021-01-17] MEDS ORDERED: GLUCAGON FOR INJ 1 MG VIAL SQ PRN (19:50)
[2021-01-17] MEDS ORDERED: DEXTROSE 50% 50 ML SYRINGE IV PRN (19:50)
[2021-01-17] MEDS ORDERED: ONDANSETRON INJ 2 MG/ML 2 ML VIAL IV PRN (19:50)
[2021-01-17] MEDS ORDERED: GLUCOSE 40% GEL 15 GM TUBE PO PRN (19:50)
[2021-01-17] MEDS ORDERED: ACETAMINOPHEN 325 MG TAB PO PRN (19:50)
[2021-01-17] MEDS: INSULIN GLARGINE SOLOSTAR 100 UNITS/ML 3 ML PEN SC SCH (21:50)
[2021-01-17] MEDS: hydrALAZINE 10 MG TAB PO SCH (21:53)
[2021-01-17] MEDS: MEMANTINE HCL 10 MG TAB PO SCH (21:53)
[2021-01-17] MEDS: INSULIN ASPART 100 UNITS/ML 3 ML PEN SC SCH (22:59)
[2021-01-17 23:18] LABS: Partial Thromboplastin Ratio 1.8
[2021-01-17 23:25] LABS: Partial Thromboplastin Time 46.9 Seconds (21.0-31.0)
[2021-01-18] MEDS ORDERED: STAT IV Infusion **Titration per Protocol STA (04:02)
[2021-01-18] MEDS: NITROGLYCERIN/D5W 100MCG/ML 250 ML IV SCH (04:19)
[2021-01-18] MEDS: NITROGLYCERIN 2% OINTMENT 30GM TUBE EXT SCH (05:12)
[2021-01-18 05:17] LABS: Partial Thromboplastin Ratio 1.6; Partial Thromboplastin Time 40.8 Seconds (21.0-31.0)
--- NOTE | 2021-01-18 05:35 | Communication Note ---
Date of Service: January 18, 2021 Received contact by nurse at 3:41 am - patient reported recurrent left sided chest pain. At the time of the recurrent discomfort, he did have nitropaste on him and the heparin drip was running. Cali's second troponin returned at 52, up from 4. I asked nursing to repeat an EKG, which showed (new) ST segment depression in all precordial leads and increasing amplitude of ST segment elevation in leads I and aVL (when compared to previous EKG). I spoke with Dr. Mil Gar over the phone - he instructed me to place patient on a nitroglycerin drip at 5mcg per min (3 ml/hr). After 30 minutes, patient continued to complain of left-sided chest pain at which time I increased the nitro drip to 10mcg/min (6ml/hr). After an additional 30 minutes with the nitro drip running at 10mcg/min, patient stated chest pain reduced to a 2 out of 10 in severity[address] I contacted Dr. Gar over the phone to provide an update, and after verifying patient's BP of 138/74, he recommended I order one dose of Morphine 2mg IV. Patient was re-checked at 6:00am at which time he denied any further chest/left arm pain.
[2021-01-18] MEDS ORDERED: MoRPHine SULFATE 2 MG/ML CARP IV STA (05:37)
[2021-01-18] MEDS ORDERED: MoRPHine SULFATE 2 MG/ML CARP ONE (05:42)
--- NOTE | 2021-01-18 07:29 | Hospitalist Progress Note ---
Date of Service January 18, 2021 Assessment & Plan (1) Chest pain: With radiation to left arm and ECG change -Aspirin plavix metoprolol and nitro - Heparin drip - Interventionalist consulted- appreciate their assistance, troponin had peaked at 96 prior to catheterization. Cardiology consultation as follows for Acute non-ST elevation myocardial infarction (NSTEMI): Chronic multivessel CADSuspected acute occlusion of SVG to OM Patient's FL has occurred, he is chest pain-free, hemodynamically/electrically stable with no clinical signs of heart failure. Quick look echocardiogram shows preserved motion in LAD distribution with lateral hypokinesis. Recommend conservative management of FL. Trend troponin until peak, Check echocardiogram Continue heparin infusion for 48 hoursContinue DAPT with aspirin, clopidogrel Continue nitro infusion for now. Can wean if remains chest pain-free. Continue current beta-isabel. Titrate up as able Renal function stable, start ARB tomorrow Continue high intensity statin. (2) Coronary artery disease: As above- 4V CABG - Preserved EF - Continue Metoprolol - ASA for primary prevention added for morning - Continue Icosapent 1gm - Continue high dose Atorvastatin 40mg and icosapent (3) Hypertriglyceridemia: As above, lipids in the morning (4) Hypertension: As above As mentioned above continue to push beta-isabel as blood pressure allows (5) Diabetes mellitus, type II: HGB A1C in morning - Lantus 20 sub q PM - Sliding scale aspart coverage 20 correction factor 15 gm CHO3 (6) Dementia: Continue rivastigmine patch (7) Chronic kidney disease, stage III (moderate): Continue to cotnrol risks- HTN, HLD, DM - Avoid nephrotoxic agents, attempt to escalate afterload reduction if renal function remains stable (8) Cerebrovascular disease: Vascular dementia likely- as above statin, BP control, Glucose control Admission and Anticipated Discharge Date Admission Date: January 17, 2021 Subjective Patient seen both pre and post catheterization and he was without chest discomfort shortness of breath or nausea. He is pleasantly demented Review of Systems Review of Systems: Mild distress and fatigue no headache, blurry or double vision no speech or swallowing issues no chest pain, pressure or palpitations no shortness of breath, cough or wheezes no abdominal pain, nausea or vomiting, diarrhea or constipation no dysuria, hematuria or frequency no focal joint pain or swelling no back pain, CVA tenderness or radicular pain no bruising, bleeding or rashes no focal signs of weakness or numbness or altered sensation no complaints of anxiety or depression.. Physical Exam Physical Exam: The patient appeared well nourished and normally developed. Vital signs as documented. Head exam is normocephalic atraumatic no scleral icterus Neck is without JVD, thyromegaly, or carotid bruits. Lungs are clear to auscultation, no focal loss of breath sounds Cardiac exam, Rhythm is regular.. Right upper border systolic ejection murmur is heard Abdominal exam reveals normal bowel sounds, soft non tender, no masses Extremities are nonedematous and both pedal pulses are present Neurologic exam is alert and oriented x3 although he definitely has some memory issues, no focal loss of strength or sensation Skin is without bruises or rashes Psychologically is without concerns for anxiety or depression Results & Data Results & Data ([facility]) Vital Signs (Past 12 Hours) Vital Signs Temp Pulse Pulse Resp BP Pulse Ox Pulse Ox 01/18/21 06:48 97.9 F 71 18 135/70 99 01/18/21 06:30 97.9 F 74 20 137/72 94 01/18/21 06:15 97.9 F 73 18 124/64 99 01/18/21 06:01 97.9 F 79 18 131/84 99 01/18/21 05:35 97.9 F 64 18 138/72 100 01/18/21 05:20 97.9 F 64 20 138/74 100 01/18/21 05:05 97.7 F 61 20 142/72 H 100 01/18/21 04:50 97.7 F 68 18 146/73 H 99 01/18/21 04:35 97.5 F L 68 18 154/82 H 99 01/18/21 04:22 75 154/82 H 01/18/21 03:54 98.1 F 73 18 159/80 H 96 01/17/21 23:34 97.9 F 71 18 132/67 95 01/17/21 22:30 62 01/17/21 21:50 56 L 144/94 H 01/17/21 19:50 97.5 F L 57 L 16 157/75 H 97 97 PG Care Time/CCT Total # of Minutes Spent Total Time Spent with Patient: Total time spent is greater than 50% in coordination of care (as documented) at patient's floor/unit and/or counseling patient: Coding Level of Care Code 97101 Subseq Hosp Care Lvl 3 Diagnoses Chest pain R07.9 Chest pain type: unspecified Coronary artery disease I25.110 Associated angina: with unstable angina Coronary Disease-Associated Artery/Lesion type: unspecified vessel or lesion type [place] vs. transplanted heart: [place] heart Hypertriglyceridemia E78.1 Hypertension I10 Hypertension type: essential hypertension Diabetes mellitus, type II E11.59; Z79.4 Diabetes mellitus complication detail: with other circulatory complications Diabetes mellitus complication status: with circulatory complication Diabetes mellitus intermediate card tender insulin use: with intermediate card tender use Dementia F03.91 Dementia behavioral disturbance: with behavioral disturbance Dementia type: unspecified type Chronic kidney disease, stage III (moderate) N18.32 Chronic kidney disease stage 3 subtype: stage 3b (GFR 30-44) Cerebrovascular disease I67.9 (1) Diabetes mellitus, type II Diabetes mellitus complication detail: with other circulatory complications Diabetes mellitus complication status: with circulatory complication Diabetes mellitus intermediate card tender insulin use: with skilled nursing use Qualified Code(s): E11.59 - Type 2 diabetes mellitus with other circulatory complications; Z79.4 - long term care pharmacist (current) use of insulin (2) Chronic kidney disease, stage III (moderate) Chronic kidney disease stage 3 subtype: stage 3b (GFR 30-44) Qualified Code(s): N18.32 - Chronic kidney disease, stage 3b (3) Coronary artery disease Associated angina: with unstable angina Coronary Disease-Associated Artery/Lesion type: unspecified vessel or lesion type [place] vs. transplanted heart: [place] heart Qualified Code(s): I25.110 - Atherosclerotic heart disease of [place] coronary artery with unstable angina pectoris (4) Dementia Dementia behavioral disturbance: with behavioral disturbance Dementia type: unspecified type Qualified Code(s): F03.91 - Unspecified dementia with behavioral disturbance (5) Chest pain Chest pain type: unspecified Qualified Code(s): R07.9 - Chest pain, unspecified (6) Hypertension Hypertension type: essential hypertension Qualified Code(s): I10 - Essential (primary) hypertension
[2021-01-18 08:00] LABS: Hematocrit (blood only) 41.9 % (42-52); Mean Corpuscular Hemoglobin 34.2 pg (25-34); Mean Corpuscular Hgb Conc 35.8 g/dL (32-36); Mean Corpuscular Volume 95.4 fL (80-100); Mean Platelet Volume 12.5 fL (7.4-10.4); Platelet Count 260 K/uL (130-400); RDW Coefficient of Variation 12.4 % (11.5-14.5); RDW Standard Deviation 43.1 fL (36.4-46.3); Red Blood Count 4.39 M/uL (4.7-6.1); White Blood Count 13.94 K/uL (4.8-10.8)
[2021-01-18 08:12] LABS: Partial Thromboplastin Ratio 1.7; Partial Thromboplastin Time 44.1 Seconds (21.0-31.0)
[2021-01-18] MEDS: ATORVASTATIN 40 MG TAB PO SCH (08:13)
[2021-01-18] MEDS: amLODIPine BESYLATE 5 MG TAB PO SCH (08:13)
[2021-01-18] MEDS: hydrALAZINE 10 MG TAB PO SCH ×2 (08:14→21:15)
[2021-01-18] MEDS: MEMANTINE HCL 10 MG TAB PO SCH ×2 (08:14→21:15)
[2021-01-18] MEDS: METOPROLOL SUCC 25MG EXT REL TAB PO SCH (08:14)
[2021-01-18] MEDS: CLOPIDOGREL BISULFATE 75 MG TAB PO SCH (08:14)
[2021-01-18] MEDS: INSULIN ASPART 100 UNITS/ML 3 ML PEN SC SCH ×4 (08:14→21:12)
[2021-01-18] MEDS: ASPIRIN 81 MG ECTAB PO SCH (08:14)
[2021-01-18 08:33] LABS: Calcium 8.6 mg/dl (8.5-10.1); Est GFR (African American) 51.1; Est GFR (Non-African American) 44.1; Magnesium 1.9 mg/dl (1.8-2.4); Potassium 3.9 mmol/L (3.5-5.1)
[2021-01-18] MEDS ORDERED: MIDAZOLAM HCL 1 MG/ML 2ML VIAL ONE (08:47)
[2021-01-18] MEDS ORDERED: HEPARIN (PORCINE) 1000 UNIT/ML 10 ML (CATH LAB USE ONLY) ONE (08:47)
[2021-01-18] MEDS ORDERED: niCARdipine HCL INJ 2.5 MG/ML 10 ML AMP ONE (08:47)
[2021-01-18] MEDS ORDERED: fentaNYL citrate 100 MCG/2 ML VIAL ONE (08:48)
[2021-01-18] MEDS ORDERED: NITROGLYCERIN/D5W 100MCG/ML 20ML SYR ONE (08:48)
[2021-01-18] MEDS ORDERED: RIVASTIGMINE 9.5 MG/24 HR TD SCH (09:00)
[2021-01-18] MEDS ORDERED: hydroCHLOROthiazide 25 MG TAB PO SCH (09:00)
--- NOTE | 2021-01-18 10:36 | Post Anesthesia Assessment ---
Date of Service January 18, 2021 Post Sedation Assessment Vital Signs Temp Pulse Pulse Resp BP BP Pulse Ox 01/18/21 08:04 98.2 F 79 18 134/69 98 01/18/21 06:48 97.9 F 71 18 135/70 99 01/18/21 06:30 97.9 F 74 20 137/72 94 01/18/21 06:15 97.9 F 73 18 124/64 99 01/18/21 06:01 97.9 F 79 18 131/84 99 01/18/21 05:35 97.9 F 64 18 138/72 100 01/18/21 05:20 97.9 F 64 20 138/74 100 01/18/21 05:05 97.7 F 61 20 142/72 H 100 01/18/21 04:50 97.7 F 68 18 146/73 H 99 01/18/21 04:35 97.5 F L 68 18 154/82 H 99 01/18/21 04:22 75 154/82 H 01/18/21 03:54 98.1 F 73 18 159/80 H 96 01/17/21 23:34 97.9 F 71 18 132/67 95 01/17/21 22:30 62 01/17/21 21:50 56 L 144/94 H 01/17/21 19:50 97.5 F L 57 L 16 157/75 H 97 01/17/21 19:01 55 L 18 157/82 H 98 01/17/21 18:30 53 L 14 153/76 H 98 01/17/21 18:00 55 L 16 138/68 99 01/17/21 17:30 53 L 16 143/73 H 98 01/17/21 17:00 56 L 16 131/70 99 01/17/21 16:45 18 152/73 H 92 01/17/21 16:30 57 L 18 152/73 H 100 01/17/21 16:00 53 L 16 161/82 H 99 01/17/21 15:30 55 L 16 155/82 H 96 01/17/21 15:00 58 L 16 150/78 H 98 01/17/21 14:56 59 L 22 137/73 94 01/17/21 14:42 56 L 56 L 20 140/77 98 01/17/21 14:41 63 18 151/78 H 97 01/17/21 14:17 98.2 F 67 18 161/80 H 97 Pulse Ox 01/18/21 08:04 01/18/21 06:48 01/18/21 06:30 01/18/21 06:15 01/18/21 06:01 01/18/21 05:35 01/18/21 05:20 01/18/21 05:05 01/18/21 04:50 01/18/21 04:35 01/18/21 04:22 01/18/21 03:54 01/17/21 23:34 01/17/21 22:30 01/17/21 21:50 01/17/21 19:50 97 01/17/21 19:01 01/17/21 18:30 01/17/21 18:00 01/17/21 17:30 01/17/21 17:00 01/17/21 16:45 01/17/21 16:30 01/17/21 16:00 01/17/21 15:30 01/17/21 15:00 01/17/21 14:56 01/17/21 14:42 01/17/21 14:41 01/17/21 14:17 Recovery Score Activity: Moves 4 extremities Respiration: Deep Breath/Cough Circulation: +/-20% PreAnes Value Consciousness: Fully Awake Oxygen Saturation: O2 needed for >90% Discharge Sedation Level of Care: Fast Track Phase II Post Sedation Plan On clinical assessment, the patient appears to have tolerated the sedation without complications. Patient is recovering as anticipated. Patient will continue to be monitored by nursing and may be discharged when sedation discharge criteria are met per below protocol. Upon Completions of procedure up to 15 minutes continue every 5 minute vital signs and the P.A.R. score; then discharge to a Phase I or Fast Track to Phase II per the following guidelines: * Discharge Patient to appropriate Phase II area if PAR is 8 or greater or return to pre- procedure baseline. The post - procedure orders will be as directed. * If PAR score is less than 8 or not return to pre-procedure baseline then p atient will follow Phase I monitoring till PAR is reached for Phase II. The Phase I may be done in procedure room or may call to secure a Phase I area. * If naloxone or flumazenil are used for reversal, hold in Phase I for continued monitoring from when last reversal dose was given for a minimum of 60 minutes or longer pending the nurse and/or physician discretion of patient condition before discharge to Phase II. Please call the Sedation Physician to re-evaluate and complete post-note for discharge to Phase II area. Do NOT discharge from procedure sedation or Phase 1 until post- sedation evaluation note is complete by procedure /sedation MD Sedation Discharge Instructions to be given to the patient at discharge to home.
--- NOTE | 2021-01-18 10:36 | Pre Anesthesia Assessment ---
Date of Service January 18, 2021 Pre Sedation Assessment Vital Signs Temp Pulse Pulse Resp BP BP Pulse Ox 01/18/21 08:04 98.2 F 79 18 134/69 98 01/18/21 06:48 97.9 F 71 18 135/70 99 01/18/21 06:30 97.9 F 74 20 137/72 94 01/18/21 06:15 97.9 F 73 18 124/64 99 01/18/21 06:01 97.9 F 79 18 131/84 99 01/18/21 05:35 97.9 F 64 18 138/72 100 01/18/21 05:20 97.9 F 64 20 138/74 100 01/18/21 05:05 97.7 F 61 20 142/72 H 100 01/18/21 04:50 97.7 F 68 18 146/73 H 99 01/18/21 04:35 97.5 F L 68 18 154/82 H 99 01/18/21 04:22 75 154/82 H 01/18/21 03:54 98.1 F 73 18 159/80 H 96 01/17/21 23:34 97.9 F 71 18 132/67 95 01/17/21 22:30 62 01/17/21 21:50 56 L 144/94 H 01/17/21 19:50 97.5 F L 57 L 16 157/75 H 97 01/17/21 19:01 55 L 18 157/82 H 98 01/17/21 18:30 53 L 14 153/76 H 98 01/17/21 18:00 55 L 16 138/68 99 01/17/21 17:30 53 L 16 143/73 H 98 01/17/21 17:00 56 L 16 131/70 99 01/17/21 16:45 18 152/73 H 92 01/17/21 16:30 57 L 18 152/73 H 100 01/17/21 16:00 53 L 16 161/82 H 99 01/17/21 15:30 55 L 16 155/82 H 96 01/17/21 15:00 58 L 16 150/78 H 98 01/17/21 14:56 59 L 22 137/73 94 01/17/21 14:42 56 L 56 L 20 140/77 98 01/17/21 14:41 63 18 151/78 H 97 01/17/21 14:17 98.2 F 67 18 161/80 H 97 Pulse Ox 01/18/21 08:04 01/18/21 06:48 01/18/21 06:30 01/18/21 06:15 01/18/21 06:01 01/18/21 05:35 01/18/21 05:20 01/18/21 05:05 01/18/21 04:50 01/18/21 04:35 01/18/21 04:22 01/18/21 03:54 01/17/21 23:34 01/17/21 22:30 01/17/21 21:50 01/17/21 19:50 97 01/17/21 19:01 01/17/21 18:30 01/17/21 18:00 01/17/21 17:30 01/17/21 17:00 01/17/21 16:45 01/17/21 16:30 01/17/21 16:00 01/17/21 15:30 01/17/21 15:00 01/17/21 14:56 01/17/21 14:42 01/17/21 14:41 01/17/21 14:17 Cardiovascular RRR, no murmur, no edema Respiratory normal respiratory effort, lungs clear to auscultation Pre-Sedation Airway Assessment Smoking Status: Never smoker Hx Sleep Apnea: No Hx Difficult Intubation: No Short, Thick Neck: No Thyromental Distance: > or= 3.5 Finger Breadths Oral Cavity: + Dental Abnormalities Mallampati Class: II ASA: ASA4 NPO Status Date of Last Intake of Fluids: 01/17/21 Date of Last Intake of Solid Food: 01/17/21 Procedure Planning Contraindications for Sedation: none Current Medications Reviewed: Yes Notes The planned sedation has been discussed with the patient. Informed Consent was obtained. I have identified the patient, determined the appropriateness of sedation and have assessed the patient immediately prior to the procedure. All medicine(s) and interventions are by my order.
--- NOTE | 2021-01-18 10:52 | Cardiac Catheterization ---
[facility] Data: Field Education Director Cardiac Status Clinical evaluation leading to the procedure CAD Presenation: Non STEMI Anginal Classification: CCS IV Heart Failure: No Cardiogenic Shock within 24 Hours: No Cardiac Arrest within 24 Hours: No Imaging Studies Past 6 Months: No Stress Studies Past 6 Months: No Diagnostic Physicians Name: George Gar MD Status: Urgent Closure Device Percutaneous Entry Location: Femoral Closure Device: Mynx Recommendations: Medical Therapy and/or Counseling Intraprocedure Events Significant Disection: No Perforation: No Cardiac Cath Procedure Full Procedure Date January 18, 2021 Pre-Procedure Diagnosis Pre-Procedure Diagnosis: Non STEMI AUC Score AUC Score: 8 Post-Procedure Diagnosis Post-Procedure Diagnosis: Severe CAD and Elevated Intracardiac Pressures Procedure(s) Performed Procedure(s) Performed: Coronary Angiography, Left Heart Cath, Ultrasound Guided Vascular Access, Aortography and Femoral Artery Angiography Nut Cracker George Gar MD Slasher Operator(s) Kay Estimated Blood Loss Estimated Blood Loss: 15 Medication(s) Medication(s): Fentanyl, Heparin, Lidocaine 1% and Versed Summary of Findings Indication: High risk NSTEMI Prior 4v CABG in 2003 at [facility] [place] (Dr. Champagne - ALISSA to LAD, SVG to ramus, SVG to diagonal, SVG to PDA). Access: 6Fr right radial artery Catheters: JR4, JL4, AR-1, DANNIE, pigtail, EBU 3.5 guide Findings: LM -calcified, moderate diffuse disease LAD -medium caliber vessel, heavily calcified, diffuse proximal to mid disease up to 95% before takeoff of S2. Competitive flow from MAXWELL in mid segment. D1 occluded proximally. Partially fills distally via left to left collaterals. Circumflex -small caliber, 95% proximal stenosis at takeoff of OM1. Remainder of AV groove circumflex very small with severe diffuse disease. High OM1 100% proximal occlusion. RCA -dominant, calcified, severe diffuse proximal to mid disease prior to 100% latemid chronic total occlusion. MAXWELL to LADwidely patent. Mid LAD with 70% stenosis after anastomosis. SVG to PDAwidely patent. Small PDA with moderate diffuse disease, severe diffuse disease in posterior AV branch and distal PLBs SVG to diagonaloccluded SVG to OMnot visualized, likely acutely occluded Aortogramno aneurysmal disease. No additional grafts identified. 40% ostial left common carotid. LVEDP - 32 Arterial Closure: Mynx Summary: 1. Severe chronic multivessel coronary artery disease - 95% mid LAD. 100% occluded D1, partially fills via left to left collaterals. - 95% proximal circumflex, 100% proximal high OM1 - 100% chronic mid RCA total occlusion 2. Widely patent MAXWELL to LAD. Mid LAD after anastomosis with 70% stenosis. 3. Widely patent SVG to PDA. 4. SVG to diagonalchronically occluded 5. SVG to OMnot visualized, likely acutely occluded culprit vessel. 6. Elevated intracardiac filling pressure Recommendations: Unable to visualize SVG to OM but suspect was was culprit vessel for acute symptoms. As chest pain free, hemodynamically and electrically stable recommend medical management of OH. Continue heparin infusion for 48 hours Continue nitro infusion Trend troponin until peak. Check echocardiogram Continue DAPT with aspirin, clopidogrel Continue beta-isabel. Add ARB as renal function allows Continue statin Hemodynamics Rest Ao:: 112/54/86 Final Ao: 133/56/83 LV: 123/32 Recommendations Recommendations: Medical Therapy and/or Counseling Specimens Specimens: None Radiation Exposure (mGy) 2409 Contrast (mls) 105 Fluids (cc crystalloids) Fluids (cc crystalloids): 120 Drains Drains: none Anesthesia moderate [phone] Procedural Complication(s) None Disposition PCU I attest to the content of the Intraoperative Record and any orders documented therein. Any exceptions are noted below. [facility] [place] Procedure Codes Cardiac Catheterization Procedure 1: Cardiovascular Cath Procedures: 93482 Coronaries & LHC (+/-LV) & Grafts/IM (arterial & venous) Therapeutic Services & Ancillary Proc Procedure 1: Cardiovascular Tx and Anc Procedures: 48299 Ultrasonic Guidance Vascular Access Moderate Sedation Procedure 1: Sedation/Anesthesia: 27733 Mod Sedation by the same physician;Init15 Min Child Age 5 & Up Procedure 2: Sedation/Anesthesia: 35166 Mod Sedation by the same physician; Ea [id number] Minutes PG Care Time/CCT Total # of Minutes Spent Total Time Spent with Patient: Total time spent is greater than 50% in coordination of care (as documented) at patient's floor/unit and/or counseling patient:
[2021-01-18] MEDS ORDERED: SODIUM CHLORIDE 0.9% 1000ML 1,000 ML IV SCH (11:00)
--- NOTE | 2021-01-18 12:03 | Cardiology Consultation ---
Date of Consultation January 18, 2021 Assessment & Plan (1) Acute non-ST elevation myocardial infarction (NSTEMI): Chronic multivessel CAD Suspected acute occlusion of SVG to OM 2. Type 2 diabetes 3. Acute on chronic renal insufficiency 4. Hypertension 5. Dementia Patient's ID has occurred, he is chest pain-free, hemodynamically/electrically stable with no clinical signs of heart failure. Quick look echocardiogram shows preserved motion in LAD distribution with lateral hypokinesis. Recommend conservative management of ID. Continue to monitor on telemetry Trend troponin until peak Check echocardiogram Continue heparin infusion for 48 hours Continue DAPT with aspirin, clopidogrel Continue nitro infusion for now. Can wean this afternoon if remains chest pain-free. Continue current beta-isabel. Titrate up as able Gentle IV fluids. Renal function stable, start ARB tomorrow Continue high intensity statin. History of Present Illness Attending Physician: Stefano Brooks MD History of Present Illness Mr. Curtis is a very pleasant 80-year-old man with a history of coronary disease post four-vessel CABG [place]MAXWELL to LAD, SVG to ramus, SVG to diagonal, [place] [facility] [place] today in the setting of ACS. Other medical history remarkable for CVA in the setting of his CABG, carotid artery disease post left CEA, type 2 diabetes, stage III CKD, hypertension, dyslipidemia and mild dementia. Active at baseline, lives at home with his . Chest pain beginning yesterday afternoon acutely. Normal troponin, nonspecific ST findings on presentation. Overnight had increased chest pain with with dynamic ST changes including ST elevation in 1, aVL. Chest pain resolved with nitro infusion and morphine. This morning completely chest pain-free, feeling well. Taken for cardiac cath this morning and found to have chronic three-vessel occlusive disease. MAXWELL to LAD was patent with a 70% chronic appearing stenosis after anastomosis. SVG to PDA widely patent. SVG to diagonal chronically occluded. Was unable to visualize SVG to OM. No collaterals to circumflex territory. Patient remained chest pain-free during procedure. Decision to treat medically. Allergies Allergy/AdvReac Type Severity Reaction Status Date / Time donepezil Allergy Intermediate diarrhea Verified 10/31/20 10:15 TY Inhibitors AdvReac Intermediate increased Verified 10/31/20 10:15 creatinine Home Medications Medication Instructions Recorded Confirmed Type flash glucose scanning reader #1 ea 03/11/20 10/31/20 Rx blood sugar diagnostic #400 ea 05/26/20 10/31/20 Rx flash glucose sensor #2 ea 07/23/20 10/31/20 Rx metformin 500 mg tablet 500 mg PO BID #180 tab 09/30/20 01/17/21 Rx rivastigmine 9.5 mg TRANSDERMAL DAILY #30 ea 10/29/20 01/17/21 Rx ergocalciferol (vitamin D2) 1,250 50,000 unit PO .COMPLEX #3 cap 11/03/20 01/17/21 Rx mcg (50,000 unit) capsule icosapent ethyl 1 gram capsule 2 g PO BID #360 cap 12/15/20 01/17/21 Rx memantine 10 mg tablet 10 mg PO BID 90 Days #180 tab 12/19/20 01/17/21 Rx insulin aspar prot-insulin aspart See Rx Instructions SQ BID #60 ml 12/25/20 01/17/21 Rx 100 unit/mL (70-30) subcutaneous pen NovoFine Plus 32 gauge x 1/6" #200 ea NS 01/01/21 Rx needle amlodipine 10 mg tablet 10 mg PO DAILY #90 tab 01/02/21 01/17/21 Rx atorvastatin 40 mg tablet 40 mg PO DAILY #90 tab 01/02/21 01/17/21 Rx clopidogrel 75 mg tablet 75 mg PO DAILY #90 tab 01/02/21 01/17/21 Rx hydrochlorothiazide 12.5 mg tablet 12.5 mg PO DAILY #90 tab 01/02/21 01/17/21 Rx metoprolol succinate 25 mg 25 mg PO DAILY #90 tab 01/02/21 01/17/21 Rx tablet,extended release 24 hr Patient History Medical History Cerebrovascular disease Chronic kidney disease, stage III (moderate) Coronary artery disease Dementia Followed by Neurology Diabetes mellitus, type II Followed by Endocrinology Hyperlipidemia Hypertension Hypertriglyceridemia Peripheral neuropathy Vitamin D deficiency Surgical History History of prostate biopsy S/P CABG (coronary artery bypass graft) S/P carotid endarterectomy S/P tonsillectomy Family History Mother Colorectal cancer Father Heart disease Prostate cancer Sister Parkinson disease Daughter Urinary calculus Denies family history of Ovarian cancer Myocardial infarction Breast cancer Cystic kidney disease Social History Smoking Status: Never smoker Tobacco Type: Cigarettes Age Started Using Tobacco: 14; Age Quit Using Tobacco: 18; Years Smoked: 4; Cigarettes Per Day: 10 a day; Second Hand Exposure: No; Hx Alcohol Use: Yes Alcohol type: beer Alcohol Intake Frequency: Monthly or Less Hx Substance Use: No Preferred Language: Argentine Communication Ability: Effective Visual Impairment: No Limitations Hearing Ability: Normal Fur Puller Required: No Beliefs That Will Affect Care: None marital status: Current Living Situation: Spouse current occupational status: retired How many Children do You have: 1 Other Information That Helps Us Care for You: No Feels Safe at Home: Yes Safety Concerns: Feels Safe At This Time Childhood Exposure to Second-Hand Smoke: Yes (father did a little ) caffeine: Yes (cup coffee daily ) Dental Care, Regularly: Yes Physical Activity Frequency: 3-4 Times per Week Seatbelt Use: always Sunscreen Use: Yes Assistive Devices: Denture - Upper Review of Systems Review of Systems: All systems reviewed & are unremarkable except as noted in HPI & below Physical Exam Physical Exam: General: Comfortable, no acute distress HEENT: Sclerae anicteric, mucous membranes moist Lungs: Clear to auscultation bilaterally Cardiac: Regular rate and rhythm, no murmurs. Abdomen: Soft, nontender Extremities: Warm, well perfused, no edema. 2+ radial pulses Skin: No rashes or lesions. Neuro: Nonfocal Psych: Alert orient normal affect and mood, short-term memory loss Results & Data ([facility]) Vital Signs (Past 12 Hours) Vital Signs Temp Pulse Resp BP Pulse Ox 01/18/21 11:09 56 L 16 123/69 96 01/18/21 10:54 62 16 116/65 97 01/18/21 08:04 98.2 F 79 18 134/69 98 01/18/21 06:48 97.9 F 71 18 135/70 99 01/18/21 06:30 97.9 F 74 20 137/72 94 01/18/21 06:15 97.9 F 73 18 124/64 99 01/18/21 06:01 97.9 F 79 18 131/84 99 04/11/21 05:35 97.9 F 64 18 138/72 100 01/18/21 05:20 97.9 F 64 20 138/74 100 01/18/21 05:05 97.7 F 61 20 142/72 H 100 01/18/21 04:50 97.7 F 68 18 146/73 H 99 01/18/21 04:35 97.5 F L 68 18 154/82 H 99 01/18/21 04:22 75 154/82 H 01/18/21 03:54 98.1 F 73 18 159/80 H 96 PG Care Time/CCT Total # of Minutes Spent Total Time Spent with Patient: Total time spent is greater than 50% in coordination of care (as documented) at patient's floor/unit and/or counseling patient: Coding Level of Care Code 70520 Initial Inpt Care Lvl 3 Diagnoses Acute non-ST elevation myocardial infarction (NSTEMI) I21.4
[2021-01-18] MEDS ORDERED: Nursing to Pharmacy Communication SCH (13:00)
[2021-01-18] MEDS: HEPARIN SODIUM/DEXTROSE 25,000 UNITS/500 ML BAG IV SCH ×2 (13:18→21:34)
[2021-01-18 20:44] LABS: Partial Thromboplastin Ratio 1.7; Partial Thromboplastin Time 44.7 Seconds (21.0-31.0)
[2021-01-18] MEDS ORDERED: RIVASTIGMINE 9.5 MG TD SCH (21:00)
[2021-01-18] MEDS: INSULIN GLARGINE SOLOSTAR 100 UNITS/ML 3 ML PEN SC SCH (21:11)
[2021-01-19] MEDS: NITROGLYCERIN/D5W 100MCG/ML 250 ML IV SCH (04:20)
[2021-01-19 05:57] LABS: Partial Thromboplastin Ratio 1.8
[2021-01-19 05:59] LABS: Partial Thromboplastin Time 48.4 Seconds (21.0-31.0)
[2021-01-19 06:05] LABS: Calcium 8.4 mg/dl (8.5-10.1); Creatinine Clr Calc Pharmacy 41.7 ml/min; Est GFR (African American) 49.4; Est GFR (Non-African American) 42.7; Magnesium 1.7 mg/dl (1.8-2.4); Potassium 4.1 mmol/L (3.5-5.1)
--- NOTE | 2021-01-19 06:23 | Electrocardiogram Report ---
Test Reason : Blood Pressure : / mmHG Vent. Rate : 070 BPM Atrial Rate : 070 BPM P-R Int : 168 ms QRS Dur : 098 ms QT Int : 400 ms P-R-T Axes : 035 -40 -23 degrees QTc Int : 432 ms Sinus rhythm with marked sinus arrhythmia with occasional Premature ventricular complexes Premature atrial complexes Left axis deviation Inferior infarct , age undetermined Abnormal ECG When compared with ECG of 14-NOV-2017 06:25, Inferior infarct is now Present Confirmed by Fermín Díaz ([id number]) on 01/19/2021 6:22:51 AM Referred By: REFERRED SELF Confirmed By:Fermín Díaz
--- NOTE | 2021-01-19 06:24 | Electrocardiogram Report ---
Test Reason : Blood Pressure : / mmHG Vent. Rate : 062 BPM Atrial Rate : 062 BPM P-R Int : 178 ms QRS Dur : 098 ms QT Int : 424 ms P-R-T Axes : 045 -39 -22 degrees QTc Int : 430 ms Normal sinus rhythm with sinus arrhythmia Left axis deviation Inferior-posterior infarct (cited on or before 17-JAN-2021) Nonspecific ST and T wave abnormality Abnormal ECG When compared with ECG of 17-JAN-2021 14:23, Premature ventricular complexes are no longer Present Confirmed by Fermín Díaz ([id number]) on 01/19/2021 6:23:53 AM Referred By: REFERRED SELF Confirmed By:Fermín Díaz
[2021-01-19 06:27] LABS: Estimated Average Glucose 174 mg/dl; Hemoglobin A1C 7.7 % (4.5-5.6)
--- NOTE | 2021-01-19 06:32 | Electrocardiogram Report ---
Test Reason : Blood Pressure : / mmHG Vent. Rate : 055 BPM Atrial Rate : 055 BPM P-R Int : 182 ms QRS Dur : 106 ms QT Int : 466 ms P-R-T Axes : 148 -28 -24 degrees QTc Int : 445 ms Poor data quality, interpretation may be adversely affected Sinus bradycardia with Premature atrial complexes Inferior-posterior infarct (cited on or before 17-JAN-2021) ST elevation in lateral leads, consider lateral injury pattern ACUTE MT / STEMI Nonspecific ST abnormality Abnormal ECG When compared with ECG of 17-JAN-2021 14:32, ST elevation now present in Lateral leads T wave inversion no longer evident in Anterior leads Confirmed by Fermín Díaz ([id number]) on 01/19/2021 6:31:59 AM Referred By: REFERRED SELF Confirmed By:Fermín Díza
--- NOTE | 2021-01-19 06:46 | Electrocardiogram Report ---
Test Reason : Blood Pressure : / mmHG Vent. Rate : 078 BPM Atrial Rate : 078 BPM P-R Int : 180 ms QRS Dur : 098 ms QT Int : 414 ms P-R-T Axes : 065 -56 -32 degrees QTc Int : 471 ms Sinus rhythm with Premature atrial complexes Left axis deviation Inferior-posterior infarct (cited on or before 17-JAN-2021) Lateral injury pattern ACUTE AK / STEMI Marked ST abnormality, possible anterior subendocardial injury Abnormal ECG When compared with ECG of 17-JAN-2021 19:16, ST more elevated in Lateral leads ST more depressed in Anterior leads ST more depressed Inferior leads Confirmed by Fermín Díaz ([id number]) on 01/19/2021 6:46:03 AM Referred By: REFERRED SELF Confirmed By:Fermín Díaz
[2021-01-19] MEDS: INSULIN ASPART 100 UNITS/ML 3 ML PEN SC SCH ×3 (08:02→21:52)
[2021-01-19] MEDS: CLOPIDOGREL BISULFATE 75 MG TAB PO SCH (08:04)
[2021-01-19] MEDS: METOPROLOL SUCC 25MG EXT REL TAB PO SCH (08:04)
[2021-01-19] MEDS: MEMANTINE HCL 10 MG TAB PO SCH (08:05)
[2021-01-19] MEDS: hydrALAZINE 10 MG TAB PO SCH (08:05)
[2021-01-19] MEDS: amLODIPine BESYLATE 5 MG TAB PO SCH (08:05)
[2021-01-19] MEDS: ATORVASTATIN 40 MG TAB PO SCH (08:06)
[2021-01-19] MEDS: ASPIRIN 81 MG ECTAB PO SCH (08:06)
--- NOTE | 2021-01-19 09:22 | Cardiology Progress Note ---
Date of Service January 19, 2021 Assessment & Plan (1) Acute non-ST elevation myocardial infarction (NSTEMI): Chronic multivessel CAD Suspected acute occlusion of SVG to OM 2. Type 2 diabetes 3. Acute on chronic renal insufficiency 4. Hypertension 5. Dementia Patient stable from a cardiac standpoint. No recurrent chest pain. Electrically stable. Troponin has peaked. No signs of heart failure on exam No access site complications. Renal function stable Continue DAPT with aspirin, clopidogrel Discontinue nitroglycerin infusion Can stop heparin infusion this afternoon Increase Toprol-XL to 50 mg daily start ARB tomorrow Continue high intensity statin. If remains stable, from a cardiac standpoint could potentially go home tomorrow. Admission and Anticipated Discharge Date Admission Date: January 17, 2021 Subjective Feeling well this morning. Denies any chest pain or shortness of breath. No other new concerns. Telemetry reviewedno events. Review of Systems Review of Systems: All systems reviewed & are unremarkable except as noted in HPI & below Physical Exam Physical Exam: General: Comfortable, no acute distress HEENT: Sclerae anicteric Lungs: Scant crackles at the bases Cardiac: Regular rate and rhythm, no murmurs. No JVD. Abdomen: Soft, mild tenderness palpation Extremities: Warm, well perfused, no edema. Right CHURCH ADMINISTRATOR access site, no ecchymosis/hematoma. Pulse intact. Skin: No rashes or lesions. Neuro: Nonfocal Psych: Alert, oriented normal mood Results & Data ([facility]) Vital Signs (Past 12 Hours) Vital Signs Temp Pulse Pulse Resp BP BP Pulse Ox 01/19/21 07:27 99.0 F 68 18 128/71 91 01/19/21 03:54 98.4 F 80 18 144/70 H 92 01/19/21 01:21 62 01/18/21 22:55 99.0 F 68 18 128/71 94 PG Care Time/CCT Total # of Minutes Spent Total Time Spent with Patient: Total time spent is greater than 50% in coordination of care (as documented) at patient's floor/unit and/or counseling patient: Coding Level of Care Code 63293 Subseq Hosp Care Lvl 3 Diagnoses Acute non-ST elevation myocardial infarction (NSTEMI) I21.4
--- NOTE | 2021-01-19 13:40 | Hospitalist Progress Note ---
Date of Service January 19, 2021 Assessment & Plan (1) Acute non-ST elevation myocardial infarction (NSTEMI): Follows with Dr. Gar Cardiac catheterization with multivessel disease but no stenting. Per Dr. Gar's note, medical management Amlodipine, aspirin, clopidogrel, hydralazine, Toprol XL, Lopressor. Continue atorvastatin No chest pain the time of my visit Continue on telemetry (2) CKD (chronic kidney disease): Baseline creatinine 1.4 Follow serial labs Anticipate discharge home tomorrow (3) Elevated troponin: None elevated STEMI as listed above Presenting troponin 0 0.03. Next troponin is 4.80. Troponin peaked at 96.7 and is now trending downward Continue management of CAD as well as NSTEMI Cardiology consulted and following (4) Chest pain: Resolved Most likely secondary to acute MO (5) Hypertension: Patient's blood pressure has been running in the 1 40-1 60 range Continue antihypertensives listed above Echocardiogram with estimated left ventricular ejection fraction of 35%. Known heart disease with akinesis and hypokinesis. Continue close fluid management Continue cardioprotective meds (6) Diabetes mellitus, type II: Hemoglobin A1c this admission 7.7% Insulin-dependent at home Continue basal rate as well as NovoLog sliding scale insulin (7) Dementia: Patient did well for portions of my exam. He did have trouble with short-term memory Continue to monitor for fall precautions Continue rivastigmine patch (8) Coronary artery disease: Multivessel disease per cardiac catheterization Continue beta-isabel, aspirin, statin (9) Cerebrovascular disease: Patient on heparin drip for NSTEMI Also on clopidogrel Encourage ambulation as tolerated (10) DVT prophylaxis: Heparin drip stopped secondary Patient continues on clopidogrel Continue to monitor closely Admission and Anticipated Discharge Date Admission Date: January 17, 2021 Supervising Physician Co-Signing Physician Notes Patient seen and examined with Norman KITCHEN. I agree with his note with the following update: called to the bedside for serge hoover around 1430 today he was up to use the bathroom, on the way back to bed he c/o dyspnea and his s aturations had dropped to 60s arrived to find him cool, diaphoretic, minimally responsive and agonal breathing, he still had a pulse at that time started to [place] for respiratory support, HR dropped to 30's and lost a pulse, code blue activated chest compressions initiated, gave Epinephrine and 1 amp of bicarb and respiratory therapy performed rescue breathing after 2 minutes of compressions he had a HR of 140's and a palpable pulse and code was stopped Norman KITCHEN called the patient's to discuss what had happened, she initially stated she would want level 5 however, since he now had a pulse but had agonal breathing Norman Bragg asked about ventilation she agreed to intubation and ventilation Dr. Farah intubated at the bedside with glidescope and patient transferred to ICU Subjective Attending: Dr. Agarwal Patient seen and examined at bedside. He seems little bit confused but is able to be reoriented. He denies any chest pain or tightness. He denies any headache or migraine headache. He does answer questions appropriately. When asked what he was doing in the hospital, he states that he had a procedure done on his leg. I suspect that this is where the catheterization occurred in the femoral artery. He had no acute complaints. When I told him they will probably be discharged tomorrow he was disappointed and thought that he would be going home today. While he did have some confusion, he had no acute complaints. Review of Systems Review of Systems: All systems reviewed & are unremarkable except as noted in Subjective Physical Exam Physical Exam: GENERAL : No acute distress. Pleasant. Talkative. EYES: No icterus, gaze conjugate. Pupils equal round and reactive to light NOSE: No evidence of epistaxis MOUTH: No lesions or candidiasis. Mucosa moist NECK: Supple LUNGS: Some crackles at bilateral bases. No bronchospasm or rhonchi HEART: Regular, rate controlled ABDOMEN: Soft, NT, ND, BS Present EXTREMITIES: +1 bilateral LE edema, pedal pulses intact NEURO: A&OX3 Results & Data Results & Data ([facility]) Vital Signs (Past 12 Hours) Vital Signs Temp Pulse Pulse Resp BP BP Pulse Ox 01/19/21 11:14 36.6 C 82 18 132/72 92 01/19/21 07:30 70 01/19/21 07:27 37.2 C 68 18 128/71 91 01/19/21 03:54 36.9 C 80 18 144/70 H 92 Laboratory Results 01/19/21 16:36 Diagnostic Findings No further diagnostic imaging since 01/17/2021 PG Care Time/CCT Total # of Minutes Spent Total Time Spent with Patient: Total time spent is greater than 50% in coordination of care (as documented) at patient's floor/unit and/or counseling patient:45 minutes Coding Level of Care Code 77887 Subseq Hosp Care Lvl 2 Diagnoses Acute non-ST elevation myocardial infarction (NSTEMI) I21.4 CKD (chronic kidney disease) N18.9 Chronic kidney disease stage: unspecified stage Elevated troponin R77.8 Chest pain R07.9 Chest pain type: unspecified Hypertension I10 Hypertension type: essential hypertension Diabetes mellitus, type II E11.59; Z79.4 Diabetes mellitus complication detail: with other circulatory comp lications Diabetes mellitus complication status: with circulatory complication Diabetes mellitus custodial insulin use: with custodial use Dementia F03.91 Dementia behavioral disturbance: with behavioral disturbance Dementia type: unspecified type Coronary artery disease I25.110 Associated angina: with unstable angina Coronary Disease-Associated Artery/Lesion type: unspecified vessel or lesion type [place] vs. transplanted heart: [place] heart Cerebrovascular disease I67.9 DVT prophylaxis Z29.9 Time Spent (min) 45 (1) Diabetes mellitus, type II Diabetes mellitus complication detail: with other circulatory complications Diabetes mellitus complication status: with circulatory complication Diabetes m ellitus terminal system operator insulin use: with custodial use Qualified Code(s): E11.59 - Type 2 diabetes mellitus with other circulatory complications; Z79.4 - predatory animal exterminator (current) use of insulin (2) Coronary artery disease Associated angina: with unstable angina Coronary Disease-Associated Artery/Lesion type: unspecified vessel or lesion type [place] vs. transplanted heart: [place] heart Qualified Code(s): I25.110 - Atherosclerotic heart disease of [place] coronary artery with unstable angina pectoris (3) Dementia Dementia behavioral disturbance: with behavioral disturbance Dementia type: unspecified type Qualified Code(s): F03.91 - Unspecified dementia with behavioral disturbance (4) CKD (chronic kidney disease) Chronic kidney disease stage: unspecified stage Qualified Code(s): N18.9 - Chronic kidney disease, unspecified (5) Chest pain Chest pain type: unspecified Qualified Code(s): R07.9 - Chest pain, unspecified (6) Hypertension Hypertension type: essential hypertension Qualified Code(s): I10 - Essential (primary) hypertension
--- NOTE | 2021-01-19 14:05 | XCELERA ---
[id number] \\[id number]
[2021-01-19] MEDS ORDERED: AMIODARONE 150MG / 100ML D5W IV ONE (15:06)
[2021-01-19] MEDS ORDERED: AMIODARONE 360MG / 200ML D5W IV ONE (15:06)
[2021-01-19 15:30] LABS: iSTAT Arterial Blood Gas HCO3 16 meg/L (19-24); iSTAT Arterial Blood Gas pCO2 47 mmHg (35-46); iSTAT Arterial Blood Gas pH 7.15 (7.35-7.45); iSTAT Arterial Blood Gas pO2 62 mmHg (80-95); iSTAT Carbon Dioxide 18 mmol/L (24-31); iSTAT Hematocrit 38 % (42-52); iSTAT Hemoglobin 12.9 g/dl (14.0-18.0); iSTAT Potassium 3.9 mmol/L (3.3-5.0); iSTAT Sodium 137 mmol/L (135-144)
--- NOTE | 2021-01-19 15:35 | Critical Care Consultation ---
Date of Consultation January 19, 2021 Assessment & Plan (1) Acute non-ST elevation myocardial infarction (NSTEMI): Reason Critically Ill: Lius Felipe is an 80-year-old gentleman with a notable past medical history of coronary artery disease status post CABG in 2003, hypertension, hyperlipidemia, insulin-dependent type 2 diabetes, Parkinson's disease, CKD stage IIIa, and vascular dementia who presented to [facility] on 01/17 for chest pain, found to have an NSTEMI. Revascularization with NERI performed thereafter. Carolina sneha was called after patient was unresponsive on 01/19 and found to be in unstable bradycardia; patient then demised to cardiac arrest. ROSC was thereafter achieved and patient was transferred to ICU for further management and monitoring. Cardiac - # Cardiac Arrest -- in setting of recent NSTEMI on 01/17 and coronary angiography on 01/18 - Witnessed cardiac arrest involving VF on 01/19 around 1430hr - s/p CPR x 1 round, intubation, 2 amps bicarb, 1mg epi, loading dose (150) of amiodarone - Now hemodynamically stable - Continuous cardiac monitoring - After discussion with family (see note by attending physician), will proceed to make patient DNR/DNI - As patient is following commands, will hold from therapeutic hypothermia - Intensive BP monitoring, respiratory support as below - Repeat echocardiography - Pending H&H, PT/INR return, anticipate restarting heparin gtt # NSTEMI s/p Catheterization on 01/18 -- with history of CABG x 4 in 2003 - Catheterization revealing of severe, chronic multivessel CAD - Based on angiography, SVT to OM - which could not be visualized - was likely culprit for acute symptoms - Echo 01/18 howing LVEF 50-55% with severely hypokinetic inferoposterior wall, grade II DD, mild pulmonary HTN (40-45mmHg) - Continue heparin for total of 48 hour (end 01/20) - Continue nitro infusion for now - DAPT - ASA, clopidogrel - BB: continue home Toprol - Consider adding ARB tomorrow - Continue atorvastatin # Atrial Fibrillation with RVR - New AF w/ RVR following cardiac arrest - Continue amiodraone drip - [facility] Respiratory - # Acute Hypercarbic, Hypoxemic Respiratory Failure - with evidence of respiratory acidosis on ABG - Initially requiring BVM and thereafter intubation during cardiac arrest for profound hypoxemia - ABG revealing of pH 7.15, elevated pCO2 (47), low HCO3 (16), low pO2 (62) - Easy respiratory effort, no focal abnormalities on lung exam - Now intubated on ventilator, continue for now -- settings as follows: TV 450, PEEP 12, FIO2 100 - Initiate Precedex drip - Continuous pulse oximetry - Obtain CXR in setting of recent CPR GI - - NPO while intubated - Heart healthy diet once able to eat - CMP RENAL/LYTES - # CKD Stage III - On chart review, baseline Cr does appear around 1.4-1.6 - Check CMP now, qAM - Replete lytes p.r.n - - Edmond inserted -- monitor UOP - IV Pepsid b.i.d. - No other concerns at this time Neuro - - Sedation in setting of ventilation - propofol, dexmedetomidine - Analgesia - fentanyl p.r.n. - In setting of recent cardiac arrest, no appreciated FNDs on exam - Will hold from CT-Head at this time # Dementia - Continue rivastigmine patch ENDO - #ID-T2DM - ICU Hyperglycemia protocol - Appreciate pharmacy aid in management of BSGs/insulin - Continue home Lantus - Continue SSI HEME - - POC H&H after cardiac arrest - Will monitor for any drops in the setting of Heparin gtt and recent CPR - CBC now, qAM ID - - Based on presenting history, low suspicion for infection at this time - Will continue to monitor while here INTEGUMENTARY - - No concerns at this time LINES/IV ACCESS - PIVs intact. DVT PROPHYLAXIS - - Anticipate returning to heparin gtt pending return of labs - Can consider SCDs if needed Thank you for allowing us to be part of this patient's care. Please refer to Dr. Farah's documentation for any further recommendations. (2) Chest pain: (3) Hypertension: (4) Hyperlipidemia: (5) Diabetes mellitus, type II: (6) Dementia: (7) Coronary artery disease: (8) Chronic kidney disease, stage III (moderate): (9) Cerebrovascular disease: (10) Cardiac arrest: Supervising Physician Co-Signing Physician Notes Dr. Nowak was the resident-physician during care of patient. I separately evaluated patient for [place] portions of the history and the exam. I was present during the critical portion of medical decision making, and I discussed the case with the resident. I generally agree with the findings and plan except for any additions/exceptions noted. 80-year-old male with past medical history of severe coronary artery disease was found to have a cardiac arrest this afternoon. ROSC was obtained after 1 round of CPR and 1 dose of epi. I intubated the patient emergently. Patient was hemodynamically stable after he was brought down to the ICU. He was following commands and thus targeted therapeutic hypothermia was not pursued. Labs are pending. He did undergo left heart catheterization yesterday. No obvious signs of bleeding on physical exam. We are starting Precedex and fentanyl for sedation. Possible SBT in extubation tomorrow morning. Echocardiogram demonstrates reduced ejection fraction of 35%. Amiodarone drip was initiated due to atrial fibrillation with aberrancy and rapid ventricular response. ABG did demonstrate severe metabolic acidosis. We will repeat ABG to make sure that the acidosis has improved. He did receive 500 cc of crystalloid during the perioperative cardiac arrest period. If no significant anemia seen on CBC, will restart heparin drip. Patient cardiology input. and family friend were updated at bedside. Discussed CODE STATUS with the and she indicated that she would like him to be a DNR if in the event he had another cardiac arrest. I have personally spent 61 minutes of critical care time in the direct management of this patient. This is a life/limb threatening event. This includes time spent evaluating patient, direct bedside care, chart review, placing orders, interpretation of diagnostic studies, discussion with consultants, patient, and/or family members regarding treatment decisions, as well as other required patient management activities. This time is exclusive of all separately billable procedures, and teaching time and separate from and in addition to any other critical care service time. History of Present Illness Attending Physician: Attending - Dr. Gagan Briscoe is an 80-year-old gentleman with a notable past medical history of coronary artery disease status post CABG in 2003, hypertension, hyperlipidemia, insulin-dependent type 2 diabetes, Parkinson's disease, CKD stage IIIa, and vascular dementia who presented to [facility] on January 17 for evaluation of chest pain. At that time, he was noted to have elevated troponins as well as repolarization changes in the inferior and anterior leads on ECG. Troponin peaked at 52. Because an NSTEMI was suspected, he was placed on a heparin drip and was briefly on a nitro drip as well. Coronary angiography was subsequently performed, which demonstrated multivessel coronary artery disease as well as suspected acute occlusion of SVG to OM. Per nursing report, he was interactive throughout the morning at approximately 1430, a code purple was called for this patient, as he became unresponsive. He was found to be in severe bradycardia that subsequently transitioned to ventri cular fibrillation. CODE BLUE was subsequently called. Patient's was called, whoPer nursing reportnoted that they would like to proceed with life saving interventions, including CPR and intubation. As such, CPR was initiated. While initially bagged, patient was thereafter intubated. Patient received approximately 1 mg of epi, 2 A of bicarb, and a 150 mg bolus of amiodarone. Throughout this process, patient did achieve return of spontaneous circulation, and pulses were palpated and appreciated via sonography. Rhythm on telemetry appreciated as sinus tachycardia at that time. Patient was subsequently transferred to the ICU for further management. Allergies Allergy/AdvReac Type Severity Reaction Status Date / Time donepezil Allergy Intermediate diarrhea Verified 10/31/20 10:15 TY Inhibitors AdvReac Intermediate increased Verified 10/31/20 10:15 creatinine Home Medications Medication Instructions Recorded Confirmed Type flash glucose scanning reader #1 ea 03/11/20 10/31/20 Rx blood sugar diagnostic #400 ea 05/26/20 10/31/20 Rx flash glucose sensor #2 ea 07/23/20 10/31/20 Rx metformin 500 mg tablet 500 mg PO BID #180 tab 09/30/20 01/17/21 Rx rivastigmine 9.5 mg TRANSDERMAL DAILY #30 ea 10/29/20 01/17/21 Rx ergocalciferol (vitamin D2) 1,250 50,000 unit PO .COMPLEX #3 cap 11/03/20 01/17/21 Rx mcg (50,000 unit) capsule icosapent ethyl 1 gram capsule 2 g PO BID #360 cap 12/15/20 01/17/21 Rx memantine 10 mg tablet 10 mg PO BID 90 Days #180 tab 12/19/20 01/17/21 Rx insulin aspar prot-insulin aspart See Rx Instructions SQ BID #60 ml 12/25/20 01/17/21 Rx 100 unit/mL (70-30) subcutaneous pen NovoFine Plus 32 gauge x 1/6" #200 ea NS 01/01/21 Rx needle amlodipine 10 mg tablet 10 mg PO DAILY #90 tab 01/02/21 01/17/21 Rx atorvastatin 40 mg tablet 40 mg PO DAILY #90 tab 01/02/21 01/17/21 Rx clopidogrel 75 mg tablet 75 mg PO DAILY #90 tab 01/02/21 01/17/21 Rx hydrochlorothiazide 12.5 mg tablet 12.5 mg PO DAILY #90 tab 01/02/21 01/17/21 Rx metoprolol succinate 25 mg 25 mg PO DAILY #90 tab 01/02/21 01/17/21 Rx tablet,extended release 24 hr Patient History Medical History (Updated 01/19/21 @ 17:16 by Norman Bragg PA-C) Cerebrovascular disease Chronic kidney disease, stage III (moderate) Coronary artery disease Dementia Followed by Neurology Diabetes mellitus, type II Followed by Endocrinology Hyperlipidemia Hypertension Hypertriglyceridemia Peripheral neuropathy Vitamin D deficiency Surgical History History of prostate biopsy S/P CABG (coronary artery bypass graft) S/P carotid endarterectomy S/P tonsillectomy Family History Mother Colorectal cancer Father Heart disease Prostate cancer Sister Parkinson disease Daughter Urinary calculus Denies family history of Ovarian cancer Myocardial infarction Breast cancer Cystic kidney disease Social History Smoking Status: Never smoker Tobacco Type: Cigarettes Age Started Using Tobacco: 14; Age Quit Using Tobacco: 18; Years Smoked: 4; Cigarettes Per Day: 10 a day; Second Hand Exposure: No; Hx Alcohol Use: Yes Alcohol type: beer Alcohol Intake Frequency: Monthly or Less Hx Substance Use: No Preferred Language: Swedish Communication Ability: Effective Visual Impairment: No Limitations Hearing Ability: Normal Legal Services Manager Required: No Beliefs That Will Affect Care: None marital status: Current Living Situation: Spouse current occupational status: retired How many Children do You have: 1 Other Information That Helps Us Care for You: No Feels Safe at Home: Yes Safety Concerns: Feels Safe At This Time Childhood Exposure to Second-Hand Smoke: Yes (father did a little ) caffeine: Yes (cup coffee daily ) Dental Care, Regularly: Yes Physical Activity Frequency: 3-4 Times per Week Seatbelt Use: always Sunscreen Use: Yes Assistive Devices: None Review of Systems Review of Systems: As per HPI Physical Exam Constitutional: Tired-appearing 80 year old male who is lying back in his hopsital bed, intubated but awake, with at the bedside. Although he is nonverbal at this time because of the intubation, he does follow commands fully as directed. Arouses easily. He is in NAD. Eyes: PERRL, conjunctivae normal, anicteric sclerae Neck: trachea midline, no thyromegaly Respiratory: normal respiratory effort, lungs clear to auscultation Patient is intubated with ventilator attached. TV 450, PEEP 12, FiO2 100 Cardiovascular: RRR, no murmur, no edema Gastrointestinal (Abdomen): normal bowel sounds, soft, nontender, no hepatosplenomegaly Skin: no rashes, warm and dry Capillary refill < 3 seconds in the distal extremities Neurologic: PERRL. EOMs grossly intact. Strong eye closure against resistance. Strength - 5/5 to farm worker strength b/l in the upper extremities. Lower extremity strength - at ankles, 5/5 resisted plantarflexion. Sensation - could not be objectively assessed in nonverbal state Results & Data Results & Data ([facility]) Vital Signs (Past 12 Hours) Vital Signs Temp Pulse Pulse Resp BP BP Pulse Ox 01/19/21 11:14 36.6 C 82 18 132/72 92 01/19/21 07:30 70 01/19/21 07:27 37.2 C 68 18 128/71 91 01/19/21 03:54 36.9 C 80 18 144/70 H 92 (1) Diabetes mellitus, type II Diabetes mellitus complication detail: with other circulatory complications Diabetes mellitus complication status: with circulatory complication Diabetes mellitus intermediate teacher insulin use: with intermediate teacher use Qualified Code(s): E11.59 - Type 2 diabetes mellitus with other circulatory complications; Z79.4 - shelter (current) use of insulin (2) Chronic kidney disease, stage III (moderate) Chronic kidney disease stage 3 subtype: stage 3b (GFR 30-44) Qualified Code(s): N18.32 - Chronic kidney disease, stage 3b (3) Coronary artery disease Associated angina: with unstable angina Coronary Disease-Associated Artery/Lesion type: unspecified vessel or lesion type [place] vs. transplanted heart: [place] heart Qualified Code(s): I25.110 - Atherosclerotic heart disease of [place] coronary artery with unstable angina pectoris (4) Dementia Dementia behavioral disturbance: with behavioral disturbance Dementia type: unspecified type Qualified Code(s): F03.91 - Unspecified dementia with behavioral disturbance (5) Chest pain Chest pain type: unspecified Qualified Code(s): R07.9 - Chest pain, unspecified (6) Hypertension Hypertension type: essential hypertension Qualified Code(s): I10 - Essential (primary) hypertension
--- NOTE | 2021-01-19 15:44 | XRay Report ---
XR chest 1V portable HISTORY: Endotracheal and nasogastric tube placement. COMPARISON: Chest 01/17/2021. FINDINGS: No pneumothorax. No pleural effusions. The heart remains enlarged. There are poststernotomy changes. There is progressive perihilar interstitial/vascular thickening consistent with mild pulmon rios edema. This is new from the prior study. Endotracheal tube terminates 4.5 cm from the nova. A n asogastric tube terminates below the diaphragm. The tip is not included on this study. IMPRESSION: 1. Satisfactory support line placement. 2. Interval development of mild interstitial pulmonary edema. ACT 112: Negative or not required by law. Electronically signed by: Ernie Warner M.D. 01/19/2021 3:43 PM
--- NOTE | 2021-01-19 15:45 | Procedure Note ---
Procedure Note Date of Service January 19, 2021 Note INTUBATION PROCEDURE NOTE: Dr. Sam Farah A time-out was completed verifying correct patient, procedure, site, positioning. Patient was evaluated and required intubation for cardiac arrest. Sedative agent used: None Paralysis agent used: None Emergent consent was implied given patients rapidly declining clinical status and need for airway protection. Number of attempts: 1 Grade view: Not applicable given that the video laryngoscope was utilized Patient was very hypoxic and reliable oxygen saturation was difficult to obtain given the recent cardiac arrest. An 8 [place] endotracheal tube was placed under video laryngoscope guidance to 24 cm at the lip. The stylette was removed and balloon was inflated with 10mL of air. Appropriate Colorimetric change was appreciated. Bilateral breath sounds were heard without air sounds in the abdomen. Post Intubation Chest X-ray ordered Patient tolerated the procedure well and there were no immediate complications. Coding CPT Codes Resuscitation - Resuscitation: 33957 Endotracheal Intubation, emergency ([id number]) [facility] [place] Codes ([place]arges) Resuscitation Resuscitation: 88729 Endotracheal Intubation, emergency
[2021-01-19] MEDS ORDERED: METOPROLOL TARTRATE 25 MG TAB PO ONE (16:00)
[2021-01-19] MEDS ORDERED: STAT IV Infusion **Titration per Protocol STA ×3 (16:09→18:42)
[2021-01-19] MEDS ORDERED: DEXMEDETOMIDINE HCL 200 MCG in SODIUM CHLORIDE 0.9% 48 ML IV SCH (16:15)
[2021-01-19] MEDS ORDERED: fentaNYL citrate 100 MCG/2 ML VIAL IV PRN (16:16)
[2021-01-19] MEDS ORDERED: ICU PROTOCOL FOR HYPERGLYCEMIA PRN (16:16)
[2021-01-19] MEDS ORDERED: MIDAZOLAM HCL 1 MG/ML 2ML VIAL IV PRN (16:20)
[2021-01-19] MEDS ORDERED: PROPOFOL BOLUS FROM BAG IV PRN (16:25)
[2021-01-19] MEDS ORDERED: propofoL 1,000 MG/100 ML VIAL IV SCH (16:25)
[2021-01-19] MEDS ORDERED: AMIODARONE / D5W 360 MG/200 ML BAG IV SCH (16:30)
[2021-01-19] MEDS ORDERED: 0.2 MICRON FILTER SET 1 EA IV ONE (16:30)
[2021-01-19] MEDS ORDERED: FAMOTIDINE 20 MG in SYRINGE 3 ML IV SCH (16:30)
--- NOTE | 2021-01-19 16:48 | XCELERA ---
[id number]
--- NOTE | 2021-01-19 16:54 | Billing Data ---
Date of Service January 19, 2021 Coding Level of Care Code Critical Care 1st 30-74 mins Time Spent (min) 61
[2021-01-19 17:01] LABS: INR 1.2 (0.9-1.1); Partial Thromboplastin Ratio 1.1; Partial Thromboplastin Time 29.3 Seconds (21.0-31.0); Prothrombin Time 11.7 Seconds (9.0-12.0)
[2021-01-19 17:12] LABS: Hematocrit (blood only) 42.7 % (42-52); Mean Corpuscular Hemoglobin 34.4 pg (25-34); Mean Corpuscular Hgb Conc 35.1 g/dL (32-36); Mean Corpuscular Volume 97.9 fL (80-100); Mean Platelet Volume 12.8 fL (7.4-10.4); Platelet Count 248 K/uL (130-400); RDW Coefficient of Variation 12.7 % (11.5-14.5); RDW Standard Deviation 45.7 fL (36.4-46.3); Red Blood Count 4.36 M/uL (4.7-6.1); White Blood Count 29.98 K/uL (4.8-10.8)
[2021-01-19 17:13] LABS: Basophils # (auto) 0.03 K/uL (0-0.2); Basophils % (auto) 0.1 %; Eosinophils # (auto) 0.01 K/uL (0-0.5); Immature Granulocytes # (auto) 0.22 K/uL (0.00-0.02); Immature Granulocytes % (auto) 0.7 %; Lymphocytes # (auto) 1.87 K/uL (1.2-3.4); Lymphocytes % (auto) 6.2 %; Monocytes # (auto) 2.82 K/uL (0.11-0.59); Monocytes % (auto) 9.4 %; Neutrophils # (auto) 25.03 K/uL (1.4-6.5); Neutrophils % (auto) 83.6 %
[2021-01-19 17:15] LABS: Albumin Globulin Ratio 0.7 (0.9-2); Albumin Level 2.9 gm/dl (3.4-5.0); Bilirubin,Total 1.1 mg/dl (0.2-1); Creatinine Clr Calc Pharmacy 25.8 ml/min; Est GFR (African American) 27.6; Est GFR (Non-African American) 23.8; Globulin 4.1 gm/dl (2.5-4.0); Magnesium 2.1 mg/dl (1.8-2.4); Potassium 4.7 mmol/L (3.5-5.1)
[2021-01-19] MEDS ORDERED: Nursing to Pharmacy Communication SCH (17:15)
[2021-01-19 17:31] LABS: Beta-Hydroxybutyrate 2.76 mg/dl (0.2-2.81)
[2021-01-19 17:32] LABS: iSTAT Arterial Blood Gas HCO3 18 meg/L (19-24); iSTAT Arterial Blood Gas pCO2 31 mmHg (35-46); iSTAT Arterial Blood Gas pH 7.36 (7.35-7.45); iSTAT Arterial Blood Gas pO2 78 mmHg (80-95); iSTAT Carbon Dioxide 19 mmol/L (24-31); iSTAT Hematocrit 42 % (42-52); iSTAT Hemoglobin 14.3 g/dl (14.0-18.0); iSTAT Potassium 5.6 mmol/L (3.3-5.0); iSTAT Sodium 132 mmol/L (135-144)
[2021-01-19] MEDS ORDERED: SEVERE STRESS LEVEL ONE (17:46)
[2021-01-19] MEDS ORDERED: INSULIN PROTOCOL GOAL RANGE ONE (17:46)
[2021-01-19] MEDS ORDERED: DC ALL PREVIOUSLY ORDERED DIABETES MEDS ONE (17:46)
[2021-01-19] MEDS ORDERED: metroNIDAZOLE 500 MG/100 ML BAG IV SCH (18:00)
[2021-01-19] MEDS ORDERED: INSULIN REGULAR 250 UNITS in SODIUM CHLORIDE 0.9% 247.5 ML IV SCH (18:00)
[2021-01-19] MEDS ORDERED: CEFEPIME 2,000 MG in SYRINGE 0 ML IV SCH (18:00)
[2021-01-19] MEDS ORDERED: INSULIN ASPART 100 UNITS/ML 3 ML PEN SC SCH ×2 (18:00)
[2021-01-19] MEDS ORDERED: NOREPINEPHRINE/D5W 8 MG/508 ML IV ONE (18:24)
--- NOTE | 2021-01-19 18:25 | Procedure Note ---
Procedure Note Date of Service January 19, 2021 Note INTERNAL JUGULAR CENTRAL LINE PROCEDURE NOTE: Procedure: Internal Jugular Central Line Placement Indication: Central Drug Administration, Poor Venous Access, Multiple Lab Draws Necessary, etc. Anesthesia: Fentanyl and Precedex were infusing at the time of the procedure /8 lidocaine 1% Consent was signed and placed on the chart prior to procedure. Indication, risks, and benefits were explained at length. A time-out was completed verifying correct patient, procedure, site, positioning, and implants(s) or special equipment if applicable. Patients right neck was cleansed and draped in the typical sterile fashion using Chloraprep. The Internal Jugular Vein and Carotid Artery were identified using ultrasound. The superficial tissue was anesthetized using 8 mL of 1% lidocaine without epinephrine under direct visualization with the ultrasound. After adequate anesthetization was achieved, the Internal Jugular vein was cannulated under direct ultrasound guidance using an introducer needle on a syringe. Good venous blood return was maintained prior to removal of syringe from introducer needle. Using Seldinger Technique, a guide wire was advanced through the introducer needle without resistance. The introducer needle was removed and ultrasound images were obtained of the guide wire within the Internal Jugular Vein and saved to the patients medical record. A small incision was made in penetrating fashion at the guide wire insertion site utilizing an 11 blade scalpel. The dilator was advanced to the vessel without resistance. The dilator was exchanged for the triple lumen catheter which was advanced into the vessel without resistance. The guide wire was removed intact from the catheter without issue. Claves were placed on each catheter tip with confirmation of good blood flow from each lumen. Each port was easily flushed with sterile saline. The catheter was placed at 15 cm and sut[address] in place. BioPatch was applied to the catheter and a sterile Tegaderm dressing was applied over the catheter with careful a ttention to sterility. Patient tolerated procedure well. No immediate complications were met. Post procedure x-ray was completed, placement was appropriate and no pneumothorax was noted. Images obtained are saved for permanent record Procedural Ultrasound Guidance used Images obtained are saved for permanent record. Coding CPT Codes Tubes, Drains, and Vasc Access - Tubes, Drains, and Vasc Access: [id number] Place catheter in vein superior or inferior vena cava ([id number]) Tubes, Drains, and Vasc Access - Tubes, Drains, and Vasc Access: [id number] Ultrasonic Guide For Needle Placement ([id number]) [facility] Procedure Codes (Charges) Tubes, Drains, and Vasc Access Procedure 1: Tubes, Drains, and Vasc Access: [id number] Place catheter in vein superior or inferior vena cava Procedure 2: Tubes, Drains, and Vasc Access: [id number] Ultrasonic Guide For Needle Placement
[2021-01-19] MEDS ORDERED: STAT IV STA (18:41)
[2021-01-19] MEDS ORDERED: SODIUM BICARBONATE 8.4% 150 MEQ in DEXTROSE 5% 1,000 ML IV SCH (18:45)
[2021-01-19] MEDS ORDERED: NOREPINEPHRINE/D5W 8 MG/508 ML BAG IV SCH (18:45)
--- NOTE | 2021-01-19 19:01 | XRay Report ---
SINGLE VIEW CHEST CLINICAL HISTORY: Central venous catheter placement. FINDINGS: An AP, portable, semierect chest radiograph is compared to study performed earlier the same day 01/19/2021. The patient is status post midline sternotomy. Endotracheal and enteric tubes are unc hanged in position. A right internal jugular central venous catheter has been placed. The tip project s over the cavoatrial junction. The heart is enlarged noting atherosclerotic calcification of the tho racic aorta. Pulmonary vascular congestion persists. Bilateral interstitial airspace opacities likely represent pulmonary edema. There are small pleural effusions with bibasilar atelectasis. No pneumoth orax is seen. The skeletal structures are osteopenic. The bony thorax is grossly intact. IMPRESSION: 1. A right internal jugular central venous catheter has been placed as above. No pneumothorax is seen post procedure. 2. Remaining lines and tubes are unchanged. 3. Cardiomegaly with evidence of congestive failure and pulmonary edema. 4. Small pleural effusions. ACT 112: Negative or not required by law. Electronically signed by: Norman Mejia M.D. 01/19/2021 7:00 PM
[2021-01-19] MEDS ORDERED: HEPARIN SODIUM/DEXTROSE 25,000 UNITS/500 ML BAG IV SCH (19:15)
--- NOTE | 2021-01-19 19:38 | Death Pronouncement Note ---
Date of Service January 19, 2021 Pronouncement Note Admission Date Admission Date: January 17, 2021 PRONOUNCEMENT NOTE - Date: 01/19/2021 Time: 1933 I was contacted by nursing staff regarding the patients declining status and concerns for imminent demise. In short, patient was hospitalized and undergoing treatment for NSTEMI, A. fib RVR. He had a cardiac arrest this afternoon where he received CPR and was able to achieve ROSC. He was intubated and transferred to the ICU where he remained severely hemodynamically unstable. He had additional cardiac arrest in the ICU and again received chest compressions and epinephrine in which he converted to sinus rhythm. CODE STATUS was addressed between Dr. Farah and the patient's family, and he was made DNR. Shortly after, the patient became bradycardic and hypotensive again and converted to asystole on the monitor. Assessment: I presented to the patients room for evaluation. Upon assessment, the patient was found to be in a terminal state. Pupils were fixed and dilated without response. No palpable pulses appreciated. No spontaneous breaths noted. Heart sounds were absent. No response to painful stimuli. Time of : 1933 as pronounced by myself. Patient's family present to the bedside shortly after he was pronounced . Appropriate grievances appreciated. Patients primary service was contacted and made aware of patient demise. Pronouncement section of the Certificate was filled out and signed by myself. Cause of : Primary -cardiogenic shock Secondary -NSTEMI Contributing Causes of -coronary artery disease Please feel free to contact me with any questions regarding the above-mentioned course. Contributing Factors (1) Acute non-ST elevation myocardial infarction (NSTEMI): (2) Chest pain: (3) Hypertension: (4) Hyperlipidemia: (5) Diabetes mellitus, type II: (6) Dementia: (7) Coronary artery disease: (8) Chronic kidney disease, stage III (moderate): (9) Cerebrovascular disease: (10) Cardiac arrest: Additional Data Attending physician: Terrance Agarwal DO Coding Level of Care Code None Diagnoses Acute non-ST elevation myocardial infarction (NSTEMI) I21.4 Chest pain R07.9 Chest pain type: unspecified Hypertension I10 Hypertension type: essential hypertension Hyperlipidemia E78.5 Diabetes mellitus, type II E11.59; Z79.4 Diabetes mellitus complication detail: with other circulatory complications Diabetes mellitus complication status: with circulatory complication Diabetes mellitus manager intermediate insulin use: with manager intermediate use Dementia F03.91 Dementia behavioral disturbance: with behavioral disturbance Dementia type: unspecified type Coronary artery disease I25.110 Associated angina: with unstable angina Coronary Disease-Associated Artery/Lesion type: unspecified vessel or lesion type [place] vs. transplanted heart: [place] heart Chronic kidney disease, stage III (moderate) N18.32 Chronic kidney disease stage 3 subtype: stage 3b (GFR 30-44) Cerebrovascular disease I67.9 Cardiac arrest I46.9
[2021-01-19] MEDS: Heparin IV Adult Wt-Based Low-Dose *NO* Bolus Protocol IV SCH (21:53)
--- NOTE | 2021-01-20 06:12 | Electrocardiogram Report ---
Test Reason : Blood Pressure : / mmHG Vent. Rate : 119 BPM Atrial Rate : 079 BPM P-R Int : 000 ms QRS Dur : 156 ms QT Int : 366 ms P-R-T Axes : 000 262 -07 degrees QTc Int : 514 ms Atrial fibrillation with rapid ventricular response Right bundle branch block Inferior infarct (cited on or before 17-JAN-2021) ST elevation, consider lateral injury pattern Abnormal ECG When compared with ECG of 18-JAN-2021 02:44, Atrial fibrillation has replaced Sinus rhythm Vent. rate has increased BY 41 BPM Right bundle branch block is now Present Confirmed by Fermín Díaz ([id number]) on 01/20/2021 6:11:46 AM Referred By: REFERRED SELF Confirmed By:Fermín Díaz
--- NOTE | 2021-01-20 07:07 | Discharge Summary ---
Date of Service January 19, 2021 Admission HPI Per Admitting Provider 80 YOM with past medical history of CABG (2003), CAD, HTN, HLD, DM II on insulin, Parkinson, CKD IIIa, vascular dementia. Patient comes in to the EMD today for complaints of chest pain that started around 10:30-1100 this morning. The patient was not doing anything strenous at that time, but the pain was located in the center of his chest, he can't describe it, "it just hurts". The pain at worse was about 3-4/10 and now is around a 1-2, but is still there. The pain this morning went into his left arm across his chest and then went away. He was out driving around when it happened again, so they came to the EMD. The patient had a Troponin I at 1440 today by the EMD that was 0.[address] and T-wave changes inferior and anterior. The patient HR is normally in the 50- 60 range and is so a this time, his BP however has been in the 150-160 range. The EMD staff spoke with the interventionalist information security director and patient will be admitted to trend troponin and ECG as well as heparin drip and the hospitalist service was notified for admission. Upon my evaluation, the patient was still having some chest pain to the center of his chest and was given another NTG table 0.4mg SL, with improvement. Will target symptoms and BP management. Principal Diagnosis NSTEMI, cardiac arrest Discharge Exam no pulse, no respirations, no breath sounds, no heart tones, pupils fixed, unresponsive Discharge Data Allergies Allergy/AdvReac Type Severity Reaction Status Date / Time donepezil Allergy Intermediate diarrhea Verified 10/31/20 10:15 TY Inhibitors AdvReac Intermediate increased Verified 10/31/20 10:15 creatinine Consultations 01/17/21 15:35 ED Decision to Admit Stat 01/17/21 19:50 Consult Cardiology Routine 01/18/21 10:56 Consult Cardiac Rehabilitation Routine 01/19/21 17:12 Consult Numerical Control Lathe Operator Routine Procedures Performed Operation Date: 01/18/21 08:45 Actual Procedures s Cineradiography w/Routine Exam - Fabian Gar MD p Aspiration/PCI w/NERI for Stemi - Fabian Gar MD s Ultrasound Vascular Access - Fabian Gar MD s Injection / Imaging Aorta - Fabian Gar MD s Cath, Left with Cors and Vent - Fabian Gar MD s Placement Art Occlusive Device - Fabian Gar MD Ordered Studies 01/18/21 08:45 CL Cath Imgs for PACS use only Routine 01/19/21 17:53 US point of care ultrasound Urgent Hospital Course (1) Cardiac arrest: code blue around 1430, occurred after patient walked back from bathroom he was hypoxic with agonal breathing, became bradycardic and lost a pulse Epinephrine administered with one round of chest compressions, 1 amp of bicarb given ROSC achieved, but with agonal breathing and thus he was intubated, transferred to ICU ICU met with family, he was changed to DNR, they got to see him at the bedside he later in the evening reviewing the record, the patient presented with NSTEMI, troponin peaked at 90 had a left heart cath that showed multivessel disease, narrowing in grafts, no stents indicated, medical management uncertain what provoked his acute hypoxic event, at the time of my arrival he was not responding, diaphoretic, could not determine if he had chest pain or pressure (2) Acute non-ST elevation myocardial infarction (NSTEMI): Follows with Dr. Gar Cardiac catheterization with multivessel disease but no stenting. Per Dr. Gar's note, medical management Amlodipine, aspirin, clopidogrel, hydralazine, Toprol XL, Lopressor. Continue atorvastatin (3) CKD (chronic kidney disease): Baseline creatinine 1.4 Follow serial labs Cr slightly higher after heart cath but overall stable (4) Elevated troponin: None elevated STEMI as listed above Presenting troponin 0 0.03. Next troponin is 4.80. Troponin peaked at 96.7 and is now trending downward Continue management of CAD as well as NSTEMI Cardiology consulted and following (5) Chest pain: Resolved Most likely secondary to acute IL (6) Hypertension: Patient's blood pressure has been running in the 1 40-1 60 range Continue antihypertensives listed above Echocardiogram with estimated left ventricular ejection fraction of 35%. Known heart disease with akinesis and hypokinesis. Continue close fluid management Continue cardioprotective meds (7) Diabetes mellitus, type II: Hemoglobin A1c this admission 7.7% Insulin-dependent at home Continue basal rate as well as NovoLog sliding scale insulin (8) Dementia: Patient did well for portions of my exam. He did have trouble with short-term memory Continue to monitor for fall precautions Continue rivastigmine patch (9) Coronary artery disease: Multivessel disease per cardiac catheterization Continue beta-isabel, aspirin, statin (10) Cerebrovascular disease: Patient on heparin drip for NSTEMI Also on clopidogrel Encourage ambulation as tolerated (11) DVT prophylaxis: was initially on heparin drip for NSTEMI Total Time Total Time Spent Total Time Spent (In Minutes): 60 Discharge Plan Discharge Items Patient Disposition: Discharge Diagnosis: CAD, cardiac arrest Addtl Attending Provider Instructions: none Coding Level of Care Code D/C Day Management >30 mins Diagnoses Cardiac arrest I46.9 Acute non-ST elevation myocardial infarction (NSTEMI) I21.4 CKD (chronic kidney disease) N18.9 Chronic kidney disease stage: unspecified stage Elevated troponin R77.8 Chest pain R07.9 Chest pain type: unspecified Hypertension I10 Hypertension type: essential hypertension Diabetes mellitus, type II E11.59; Z79.4 Diabetes mellitus snf insulin use: with laborer marine terminal use Diabetes mellitus complication status: with circulatory complication Diabetes mellitus complication detail: with other circulatory complications Dementia F03.91 Dementia type: unspecified type Dementia behavioral disturbance: with behavioral disturbance Coronary artery disease I25.110 Coronary Disease-Associated Artery/Lesion type: unspecified vessel or lesion type [place] vs. transplanted heart: [place] heart Associated angina: with unstable angina Cerebrovascular disease I67.9 DVT prophylaxis Z29.9
[2021-01-20] MEDS ORDERED: METOPROLOL SUCC 50MG EXT REL TAB PO SCH (09:00)
[2021-01-20] MEDS ORDERED: ICU PROTOCOL FOR HYPERGLYCEMIA SCH (09:00)
[2021-02-09] MEDS ORDERED: ERGOCALCIFEROL 50,000 UNITS 1250 MCG CAP PO SCH (09:00)
== END 2021-01-19 19:34 | disposition expired ==
LOC: ED 14:09 → SUATTDRO 16:40 → 2S 16:40 → 1E 01-19 14:49
PROC: CLB.IPA (~2021-01-17)